=== PATIENT | female | born 1940 | race Caucasian/White ===

== ENCOUNTER 2016-12-04 13:34 | Inpatient (IN) | payer OTHER, MEDICAID ==
[2016-12-04] VITALS (9 sets, daily range): BP systolic 82–111; BP diastolic 35–57; PULSE 60–67; RESP 15–20; TEMP 97.5–99.2; O2SAT 98–100
[~2016-12-04] VITALS: Ht 157.5 cm; Wt 74.4 kg
--- NOTE | 2016-12-04 13:34 | NUR ---
Patient to ER bed 6 to gown for evaluation. Side rails up. Report given to TIAGO JUNE.
--- NOTE | 2016-12-04 13:35 | NUR ---
Dr. Garcia at bedside examining pt.
--- NOTE | 2016-12-04 13:36 | NUR ---
Pt lethargic, nonverbal, unable to track. Per EMT report, pt had fever and ALOC from [facility]escent home. Pupils PERRLA. Lung sounds diminished bilaterally. Peripheral pulses weak on all extremities. Pt is hypotensive with SBP 89 and rectal temp 100.9. Noted rashes on BLE, buttocks, and lower back. Redness on sacrum. Skin intact. No other complaints or injuries per pt or noted.
[2016-12-04] MEDS ORDERED: NACL 0.9% 1,000 ML IV SCH (13:41)
[2016-12-04] MEDS ORDERED: cefTRIAXone 1 GM IVPB PREMIX 50 ML IV ONE (13:45)
--- NOTE | 2016-12-04 14:00 | NUR ---
IV #22 gauge placed to LFA and IV #20 gauge on RFA with blood draw for lab. Use of asceptic technique. Opsite placed over site. Blood return noted. Flushed with 10 cc of normal saline. No evidence of infiltration noted. Patient tolerated well.
--- NOTE | 2016-12-04 14:01 | NUR ---
Administered 2500 ml NS bolus and 1 gm Rocephin IV. Tolerating well. No adverse reactions noted. No infiltration or erythema noted at IV sites.
--- NOTE | 2016-12-04 14:15 | NUR ---
Tracy inserted with aeseptic technique. Tolerated well. Noted yellow, cloudy urine with foul odor.
[2016-12-04] MEDS ORDERED: NACL 0.9% 1,500 ML IV ONE (14:30)
[2016-12-04 14:40] LABS: ANION GAP 7 (5-15); CALCIUM 11.4 mg/dL (8.4-11.0); CREATININE 1.93 mg/dL (0.55-1.30); GLUCOSE 200 mg/dL (70-99); POTASSIUM 4.9 mmol/L (3.5-5.1); SODIUM SERUM 151 mmol/L (136-145); UREA NITROGEN, BLOOD 65 mg/dL (8-21)
[2016-12-04 14:41] LABS: HEMATOCRIT 38.3 % (36-48); HEMOGLOBIN 12.3 g/dL (12.0-16.0); MEAN CORPUSCULAR HEMOGLOBIN 31 pg (27-31); MEAN CORPUSCULAR HGB CONC 32 % (32-36); MEAN CORPUSCULAR VOLUME 95 fL (79.0-98.0); PLATELET COUNT (AUTO) 224 K/uL (130-430); RED BLOOD CELL COUNT(AUTO) 4.01 MIL/uL (4.2-6.2); RED CELL DISTRIBUTION WIDTH 15.4 % (9.0-15.0); WHITE BLOOD COUNT (AUTO) 18.5 K/uL (4.8-10.8)
[2016-12-04 14:42] LABS: CHLORIDE 121 mmol/L (98-107)
[2016-12-04 14:45] LABS: ALANINE AMINOTRANSFERASE 32 U/L (12-78); ALBUMIN 3.4 g/dL (3.4-4.8); ASPARTATE AMINOTRANSFERASE 28 U/L (10-37); TOTAL BILIRUBIN 0.6 mg/dL (0.0-1.0); TOTAL PROTEIN, SERUM 8.1 g/dL (6.4-8.3)
[2016-12-04 14:46] LABS: PROTHROMBIN TIME 11.2 SECS (9.5-12.5)
[2016-12-04] MEDS ORDERED: HAL1 PO (14:55)
[2016-12-04] MEDS ORDERED: LACT10SO66 PO (14:55)
[2016-12-04] MEDS ORDERED: ASPI-1063 PO (14:55)
[2016-12-04] MEDS ORDERED: LOSA100T11 PO (14:55)
[2016-12-04] MEDS ORDERED: MET10 PO (14:55)
[2016-12-04] MEDS ORDERED: LEVO137T2 PO (14:55)
[2016-12-04] MEDS ORDERED: POLY17PO4 PO (14:55)
[2016-12-04] MEDS ORDERED: HYDR2TAB34 PO (14:55)
[2016-12-04] MEDS ORDERED: MULT-300 PO (14:55)
[2016-12-04] MEDS ORDERED: CYM30 PO (14:55)
[2016-12-04] MEDS ORDERED: ACET-2165 PO ×2 (14:55)
[2016-12-04] MEDS ORDERED: MEGE400O PO (14:55)
[2016-12-04] MEDS ORDERED: DONE10TA44 PO (14:55)
[2016-12-04] MEDS ORDERED: CARV6.2554 PO (14:55)
[2016-12-04] MEDS ORDERED: ONDA4TAB5 PO (14:55)
[2016-12-04] MEDS ORDERED: CYAN100067 PO (14:55)
[2016-12-04] MEDS ORDERED: ASCO500T20 PO (14:55)
[2016-12-04] MEDS ORDERED: ATOR10TA68 PO (14:55)
--- NOTE | 2016-12-04 14:55 | NUR ---
Medication reconciliation completed with information provided by FACILITY. Any prior medication reconciliation on file was reviewed and corrected.
[2016-12-04 15:01] LABS: ATYPICAL LYMPHOCYTES % 4 % (0-0); BAND % (MANUAL) 18 % (0-6); BASOPHILS % (MANUAL) 0 % (0-2); EOSINOPHILS % (MANUAL) 4 % (0-7); LYMPHOCYTES % (MANUAL) 9 % (20-46); MONOCYTES % (MANUAL) 4 % (0-11)
--- NOTE | 2016-12-04 15:45 | NUR ---
Pt remains lethargic, responsive to pain. SBP 84. NS bolus still infusing. Will continue to monitor.
[2016-12-04 15:46] LABS: BILIRUBIN,URINE NEGATIVE (NEGATIVE); BLOOD, URINE 2+ (NEGATIVE); CLARITY/URINE CLOUDY (CLEAR); COLOR,URINE YELLOW (YELLOW); GLUCOSE,URINE NEGATIVE (NEGATIVE); KETONES,URINE NEGATIVE (NEGATIVE); LEUKOCYTE ESTERASE ,URINE 2+ (NEGATIVE); NITRITE, URINE POSITIVE (NEGATIVE); PH,URINE 5.5 (5.0-8.0); PROTEIN URINE TRACE (NEGATIVE); UROBILINOGEN,URINE 0.2 (0.2-1.0)
--- NOTE | 2016-12-04 16:00 | NUR ---
Dr. Garcia at bedside examining pt. Dr. Garcia also aware of rashes on trunk and extremities. No new orders at this time.
[2016-12-04 16:16] LABS: BACTERIA,URINE MANY /HPF (None Seen); MUCUS,URINE 1+ /LPF (None Seen); WBC,URINE >100 /HPF (0-3)
--- NOTE | 2016-12-04 16:20 | NUR ---
Received orders for transfer from Dr. Nobles. Pt is to be admitted to ICU for septic shock. Notified ICU charge nurse, waiting for available bed.
[2016-12-04] MEDS ORDERED: ACETAMINOPHEN 500 MG TABLET PO PRN (16:45)
[2016-12-04] MEDS ORDERED: LEVOTHYROXINE SODIUM 0.137 MG TABLET PO ONE (17:00)
[2016-12-04] MEDS ORDERED: ATORVASTATIN 10 MG TABLET PO ONE (17:00)
[2016-12-04] MEDS ORDERED: ASPIRIN 81 MG TABLET(ECOTRIN) PO ONE (17:00)
--- NOTE | 2016-12-04 17:00 | NUR ---
Transferred pt to ICU 5 via gurney accompanied by 2 RNs with continuous monitoring and O2. Tolerated well.
--- NOTE | 2016-12-04 17:15 | NUR ---
Continuum of care in ICU. Pt awake, oriented x1. Pt continue with NS 100 ml/hr, IV sites intact, patent, no signs of infiltration or erythema noted. Tracy catheter in place with yellow cloudy urine. No acute distress noted. Denies pain. Oriented pt to room and call light. Will continue to monitor.
--- NOTE | 2016-12-04 17:32 | NUR ---
Spoke with Dr. Mackey. made aware Pt is in ICU. No new orders given. Dr. Mackey stated to follow up with Dr. Serrano on the new consult tomorrow morning 12/05/2016
--- NOTE | 2016-12-04 17:38 | NUR ---
Dr. Francine borja. Dr. Suarez is electronics lead for Dr. Escamilla. Spoke with Moreno from exchange. Currently awaiting returned phone call.
[2016-12-04] MEDS ORDERED: NOREPINEPHRINE BITARTRATE 4 MG in D5W 246 ML IV PRN (17:45)
--- NOTE | 2016-12-04 17:45 | NUR ---
Dr. Eaton return call, made aware of pt's condition. New orders made, carried out. Will continue to monitor.
[2016-12-04] MEDS: NACL 0.9% 1,000 ML IV SCH (17:53)
[2016-12-04] MEDS: CEFEPIME 1 GM in D5W 50 ML IV SCH ×2 (17:53→20:55)
[2016-12-04] MEDS ORDERED: COMMUNICATION ORDER XX ONE (19:00)
--- NOTE | 2016-12-04 19:20 | NUR ---
Endorsed plan of care to My RN.
--- NOTE | 2016-12-04 19:45 | NUR ---
PM ASSESSMENT PT RESTING IN BED, A&O TO PERSON ONLY. PT ON O2 NC 2L. O2 SAT 100%. SINUS RHYTHM ON CONCAVER. BREATHING EVEN AND UNLABORED. PERIPHERAL IV 20G SL TO RIGHT FOREARM. PERIPHERAL IV 22G NOTED TO LEFT FOREARM. BOTH SITES DRESSING CLEAN DRY INTACT. NO SIGNS OF INFECTION OR INFILTRATION. NS RUNNING @ 100 ML/HR. BRADLEY CATHETER IN PLACE DRAINING YELLOW URINE. RASH NOTED TO HER BODY. PT'S RIGHT EAR HAS A SMALL SKIN TEAR. BOTH FEET ELEVATED AND WITH HEELIFT IN PLACE. CALL LIGHT WITHIN REACH. BED @ LOWEST POSITION. CONTINUE TO MONITOR THE PT
--- NOTE | 2016-12-04 23:10 | NUR ---
ELEVATED TROPONIN LEVEL TROPONIN 0.1113. NOTIFIED DR KING. DR KING COVERS FOR DR SHAW
[2016-12-04] MEDS ORDERED: NOREPINEPHRINE 4 MG/4 ML VIAL IV ONE (23:39)
[2016-12-05] VITALS (20 sets, daily range): BP systolic 95–165; BP diastolic 46–82; PULSE 60–66; RESP 12–26; TEMP 97–98.5; O2SAT 96–100
[2016-12-05] MEDS: NACL 0.9% 1,000 ML IV SCH ×2 (05:07→19:39)
[2016-12-05] MEDS: LEVOTHYROXINE SODIUM 0.137 MG TABLET PO SCH (06:04)
--- NOTE | 2016-12-05 07:34 | NUR ---
GAVE REPORT TO ONCOMING NURSE
--- NOTE | 2016-12-05 07:35 | NUR ---
RECEIVED PATIENT ON BED AWAKE.BREATHING EVEN AND UNLABORED.NO ACUTE DISTRESS.IVF INFUSING WELL;NO SIGNS AND SYMPTOMS OF INFILTRATION.SAFETY AND FALL PRECAUTIONS IN PLACE.CALL LIGHT WITHIN REACH
[2016-12-05 09:20] LABS: BASOPHILS % (AUTO) 0.3 % (0.0-2.0); EOSINOPHILS # (AUTO) 0.7 K/uL (0.0-0.4); EOSINOPHILS % (AUTO) 6.7 % (0.0-4.0); HEMATOCRIT 29.5 % (36-48); HEMOGLOBIN 9.8 g/dL (12.0-16.0); LYMPHOCYTES # (AUTO) 1.2 K/uL (1.0-5.5); MEAN CORPUSCULAR HEMOGLOBIN 32 pg (27-31); MEAN CORPUSCULAR HGB CONC 33 % (32-36); MEAN CORPUSCULAR VOLUME 95 fL (79.0-98.0); MONOCYTES # (AUTO) 0.3 K/uL (0.0-1.0); NEUTROPHILS # (AUTO) 8.5 K/uL (1.8-7.7); PLATELET COUNT (AUTO) 133 K/uL (130-430); RED BLOOD CELL COUNT(AUTO) 3.09 MIL/uL (4.2-6.2); RED CELL DISTRIBUTION WIDTH 15.1 % (9.0-15.0)
[2016-12-05 09:21] LABS: WHITE BLOOD COUNT (AUTO) 10.7 K/uL (4.8-10.8)
[2016-12-05] MEDS: ATORVASTATIN 10 MG TABLET PO SCH (09:24)
[2016-12-05] MEDS: ASPIRIN 81 MG TABLET(ECOTRIN) PO SCH (09:24)
[2016-12-05] MEDS: CEFEPIME 1 GM in D5W 50 ML IV SCH ×2 (09:25→20:59)
[2016-12-05 09:29] LABS: ANION GAP 8 (5-15); CALCIUM 9.5 mg/dL (8.4-11.0); CREATININE 1.08 mg/dL (0.55-1.30); GLUCOSE 84 mg/dL (70-99); POTASSIUM 3.6 mmol/L (3.5-5.1); SODIUM SERUM 147 mmol/L (136-145); UREA NITROGEN, BLOOD 44 mg/dL (8-21)
--- NOTE | 2016-12-05 09:30 | NUR ---
Nutrition Update Tyree Scale 14 noted. Pt admitted for septic shock. Diet: 2 gm Na BMI: 27.4 kg/m2 RD to follow per nutrition care standards.
--- NOTE | 2016-12-05 09:45 | NUR ---
SERVED BREAKFAST ORDERED;REFUSED TO EAT.WILL OFFER AGAIN LATER
--- NOTE | 2016-12-05 10:03 | NUR ---
PATIENT HAD BOWEL MOVEMENT;MEDIUM ,SOFT,GREENISH Addendum: 12/05/16 at 1302 by Yovana Petty RN PERICARE PROVIDED
[2016-12-05 10:15] LABS: CHLORIDE 120 mmol/L (98-107)
--- NOTE | 2016-12-05 10:30 | NUR ---
OFFERED BREKFAST TRAY AGAIN;STILL REFUSED THE FOOD;ABLE TO CONSUME THE JUICE
[2016-12-05] MEDS ORDERED: CLOTRIMAZOLE 1% TOPICAL CREAM 15 GM TP SCH (11:00)
--- NOTE | 2016-12-05 11:51 | NUR ---
DR. PENA CAME AND EXAMINED THE PATIENT;NO NEW ORDER
[2016-12-05] MEDS ORDERED: FLUCONAZOLE 100 mg/ NS 50 ML IV ONE (12:00)
--- NOTE | 2016-12-05 12:30 | NUR ---
PATIENT ON BED AWAKE.BREATHING EVEN AND UNLABORED.COMPLAINING OF MILD RECTAL PAIN BUT REFUSED TO TAKE TYLENOL.IVF INFUSING WELL;NO SIGNS AND SYMPTOMS OF INFILTRATION.SAFETY AND FALL PRECAUTIONS IN PLACE.CALL LIGHT WITHIN REACH.ENDORSED TO FREDDY JUNE
--- NOTE | 2016-12-05 15:20 | NUR ---
Wound Evaluation: Wound Consult ordered for Low Tyree Score. Patient evaluated for a low Tyree score of 15, now a 14. Patient was awake, alert, confused, and received in an ICU [facility] bed with a Isabella XPRT mattress. Patient needs to be turned in bed. Skin is poor. Recommend reposition patient side to side only every 2 hours with pillow support. Elevate, off-load and float bilateral heels with pillows. Offload pressure areas with pillows for pressure re-distribution. Perform skin care and monitor skin integrity Q shift. Use moisture barrier cream on moisture susceptible areas QID and PRN for soiling. Maintain patient on a low air-loss mattress. Will continue to follow as a Tyree. Skin assessment: 1. Sacral coccygeal/buttocks areas: Redness, and non-intact skin from IAD, present on admission. Dry flaky skin present. Open area on right buttock is 100% pink tissue, and is covered completely by moisture barrier cream. Recommend: Cleanse involved areas with mild soap and water. Pat dry. Cover involved areas with moisture barrier cream. Cover with sacral foam dressing. Perform site care daily, and as needed for dressing soiling or dislodgment. 2. Right Ear, [place]: Reddened area measuring 0.5 cm X 1.0 cm. Black eschar present. No odor, no drainage. Recommend: Do not allow ear to touch pillows or other surfaces. If necessary, elevate and with a folded towel to allow ears to float off of pillows. 3. Left heel: 4. Right heel: Dark and reddish discolorations, present on admission. Recommend: Elevate, offload and float bilateral heels with pillows lengthwise at all times. Continue to monitor heels every shift. 5. Bilateral Lower Extremities, inguinal areas, and medial thighs: Rash like area, present on admission. No odor, no drainage. Recommend: Cleanse perineal, inguinal and medial thigh areas with mild soap and water. Pat dry. Apply antifungal cream 4 times a day and as needed for soiling. Also recommend scabies scraping.
--- NOTE | 2016-12-05 15:20 | NUR ---
WOUND CARE NURSE ROUNDS. PATIENT REPOSITIONING. VITAL SIGNS. INTAKE FOR LUNCH APPROXIMATELY 25%.
[2016-12-05] MEDS: metroNIDAZOLE 250 mg/NS 50 ML IV SCH ×2 (18:05→22:06)
--- NOTE | 2016-12-05 19:36 | NUR ---
HANDOFF FOR NOC NURSE INCLUDING PATIENT IV SITE. NEEDS HELP TO FEED, APPEARS WITHDRAWN OTHERWISE IF NOT ENGAGED TO EAT, REFUSES EXCEPT BITES AND SIPS OF FOOD. CALL TO MD RE: RULE OUT SCABIES. SITES OF IRRITATION CURRENTLY HAVE ORDERS FOR CREAM ON BEDSIDE TABLE. PATIENT HAS HEEL PROTECTOR BOOTS AT BEDSIDE. NEED FOR NEW IV BAG AND TO CHECK FLUID RATE UPON ADMINISTRATION. SITE OF RIGHT EAR TO REMAIN FREE FROM CONTACT DURING TURNING. BM X2 THIS SHIFT. BRADLEY CATH. OUTPUT 500ML.
--- NOTE | 2016-12-05 20:00 | NUR ---
ASSESSMENT Report received from morning RN. Pt is awake and alert. feeling anxious and depressed. Vital signs within normal limits. Chest rise and fall noted. Wound noted on right ear and denuded skin on sacrum area. In comfortable position with heel support.
[2016-12-05] MEDS: CLOTRIMAZOLE 1% TOPICAL CREAM 15 GM TP SCH (20:57)
[2016-12-05] MEDS: ANTIFUNGAL CLEAR OINTMENT TP SCH (21:00)
--- NOTE | 2016-12-05 22:00 | NUR ---
Position Applied anti fungal cream on sacrum area. Turned to flat position without right ear touching the pillow. Pt in comfortable position.
[2016-12-06] VITALS (11 sets, daily range): BP systolic 97–142; BP diastolic 53–75; PULSE 60–73; RESP 10–24; TEMP 96.8–98; O2SAT 97–100; Ht 157.5 cm; Wt 74.4 kg
--- NOTE | 2016-12-06 02:00 | NUR ---
POSITION Turned Pt every 2 hours.
[2016-12-06] MEDS ORDERED: NOREPINEPHRINE 4 MG/4 ML VIAL IV ONE (02:26)
[2016-12-06] MEDS: NACL 0.9% 1,000 ML IV SCH ×2 (03:02→10:23)
--- NOTE | 2016-12-06 04:30 | NUR ---
HYGIENE Cleaned Pt and applied z guard ointment on sacrum area. Changed linen and oral care. Denies pain and in comfortable position.
[2016-12-06] MEDS: metroNIDAZOLE 250 mg/NS 50 ML IV SCH ×2 (05:26→15:24)
--- NOTE | 2016-12-06 06:00 | NUR ---
BOWEL MOVEMENT Pt had light brown solid stool. Cleaned the Pt.
[2016-12-06] MEDS: LEVOTHYROXINE SODIUM 0.137 MG TABLET PO SCH (06:27)
[2016-12-06] MEDS: ATORVASTATIN 10 MG TABLET PO SCH (10:12)
[2016-12-06] MEDS: ASPIRIN 81 MG TABLET(ECOTRIN) PO SCH (10:12)
[2016-12-06] MEDS: CEFEPIME 1 GM in D5W 50 ML IV SCH ×2 (10:13→22:07)
[2016-12-06] MEDS: FLUCONAZOLE 100 mg/ NS 50 ML IV SCH (10:13)
[2016-12-06] MEDS: CLOTRIMAZOLE 1% TOPICAL CREAM 15 GM TP SCH ×2 (10:14→22:18)
[2016-12-06] MEDS: ANTIFUNGAL CLEAR OINTMENT TP SCH ×2 (10:14→22:19)
--- NOTE | 2016-12-06 12:20 | NUR ---
assumed care rec patient awake alert with periods of confusion, hob elevated. resp easy and unlabored. no sob noted. iv infiltrated on the r ac and restarted on the l ac #20. patent and infusing well on the l ac. had a large amount of bowel movement and was cleaned. perineal care rendered as well. turned repositioned for comfort. bed in low position and side rails up and locked.
--- NOTE | 2016-12-06 15:00 | NUR ---
rounds sleeps at intervals but get confused at times and reorient with her surroundings. no sob noted and bed in low position.
--- NOTE | 2016-12-06 16:40 | NUR ---
rounds report given to cinda peterson rn re patient and was transferred. no sob noted and stable.
--- NOTE | 2016-12-06 17:00 | NUR ---
TRANSFER/ASSUMED CARE RECEIVED REPORT FROM SHAYLEE MANZANARES. PATIENT IS RESTING COMFORTABLY IN BED. NO S/S OF DISTRESS OR SOB. PATIENT IS AWAKE BUT CONFUSED. IV IS PATENT AND INFUSING. BED ALARM TURNED ON. HEEL PROTECTORS ON, BRADLEY DRAINING TO GRAVITY. CALL LIGHT IN REACH, BED IN LOWEST POSITION, AND WILL CONTINUE TO MONITOR.
--- NOTE | 2016-12-06 18:12 | NUR ---
CLOSING NOTE: PATIENT IS RESTING COMFORTABLY IN BED. NO S/S OF DISTRESS OR SOB. PATIENT IS AWAKE BUT CONFUSED. IV IS PATENT AND INFUSING. BRADLEY DRAINING TO GRAVITY. CALL LIGHT IN REACH, BED IN LOWEST POSITION, AND WILL GIVE REPORT TO NIGHT NURSE.
--- NOTE | 2016-12-06 20:15 | NUR ---
OPENING NOTES PATIENT IS A/OX1.M PATIENT IS CONFUSED. NO SIGNS OF DISTRESS. BREATHING IS NON LABORED. VITAL SIGNS ARE STABLE. BRADLEY IS PATENT. PATIENT PULLED OUT IV. WILL INSERT NEW ONE. CALL LIGHT IS WITHIN REACH. SAFETY MEASURES ARE IN PLACE. WILL CONTINUE TO MONITOR.
--- NOTE | 2016-12-06 21:55 | NUR ---
IV INSERTION IV TO RIGHT FORE ARM WAS INSERTED. UX DESIGN LEAD ALYX WAS SUCCESSFUL. FIVE ATTEMPTS WERE UNSUCCESSFUL. PATIENT TOLERATED IT WELL. IV MEDICATION WILL BE LATE DUE TO IV SITE UNAVAILABLE.
--- NOTE | 2016-12-06 22:47 | NUR ---
ROUNDS PATIENT IS IN BED SLEEPING. NO SIGNS OF DISTRESS. BREATHING IS NON LABORED. SAFETY MEASURES ARE IN PLACE. WILL CONTINUE TO MONITOR.
[2016-12-06] MEDS: VANCOMYCIN HCL 1,250 MG in NS 250 ML IV SCH (22:56)
[2016-12-07 00:11] VITALS: BP 104/63; PULSE 66; RESP 16; TEMP 97.3; O2SAT 97
--- NOTE | 2016-12-07 00:35 | NUR ---
ROUNDS PATIENT IS IN BED SLEEPING. NO SIGNS OF DISTRESS. BREATHING IS NON LABORED. SAFETY MEASURES ARE IN PLACE. WILL CONTINUE TO MONITOR.
--- NOTE | 2016-12-07 02:58 | NUR ---
PATIENT TRANSFERRED TO ROOM 104B PATIENT ATTEMPTED TO GET OUT BED. PATIENT WAS MOVED CLOSER TO THE NURSING STATION. PATIENT IS NOW IN ROOM 104B. PATIENT IS RESTING COMFORTABLY. CALL LIGHT IS WITHIN REACH. BED ALARM IS ON. SAFETY MEASURES ARE IN PLACE. WILL CONTINUE TO MONITOR.
[2016-12-07 04:23] VITALS: BP 100/49; PULSE 60; RESP 16; TEMP 96.8; O2SAT 96
--- NOTE | 2016-12-07 04:50 | NUR ---
ROUNDS PATIENT IS IN BED SLEEPING. NO SIGNS OF DISTRESS. BREATHING IS NON LABORED. CALL LIGHT IS WITHIN REACH. BED ALARM IS ON. WILL CONTINUE TO MONITOR.
[2016-12-07] MEDS: LEVOTHYROXINE SODIUM 0.137 MG TABLET PO SCH (06:06)
--- NOTE | 2016-12-07 06:56 | NUR ---
CLOSING NOTES PATIENT IS IN BED RESTING COMFORTABLY. IV AND BRADLEY ARE PATENT. NO SIGNS OF DISTRESS. BREATHING IS NON LABORED. HEEL BOOTS ARE PRESENT. BED ALARM IS ON. SAFETY MEASURES ARE IN PLACE. WILL ENDORSE ALL CARE TO THE MORNING NURSE.
--- NOTE | 2016-12-07 08:00 | NUR ---
initial notes rec patient awake but with periods of confusion. hob elevated with ivf infusing well on the r ac. no infiltration noted. resp easy and unlabored. noted with gen body rash. bed in low position and side rails up and locked. made patient comfortable. call light within reached.pt is close to the nurses station.
[2016-12-07 08:22] VITALS: BP 132/87; PULSE 71; RESP 18; TEMP 97.5; O2SAT 97
[2016-12-07] MEDS: CEFEPIME 1 GM in D5W 50 ML IV SCH ×2 (09:05→20:52)
[2016-12-07] MEDS: ATORVASTATIN 10 MG TABLET PO SCH (09:06)
[2016-12-07] MEDS: ASPIRIN 81 MG TABLET(ECOTRIN) PO SCH (09:06)
[2016-12-07] MEDS: ANTIFUNGAL CLEAR OINTMENT TP SCH ×2 (09:08→20:56)
[2016-12-07] MEDS: CLOTRIMAZOLE 1% TOPICAL CREAM 15 GM TP SCH ×2 (09:08→20:53)
--- NOTE | 2016-12-07 10:00 | NUR ---
rounds due abx given at this time. no sob noted.
[2016-12-07] MEDS: FLUCONAZOLE 100 mg/ NS 50 ML IV SCH (10:13)
[2016-12-07] MEDS: NACL 0.9% 1,000 ML IV SCH ×2 (10:53→21:56)
[2016-12-07 12:11] VITALS: BP 125/67; PULSE 66; RESP 19; TEMP 97.4; O2SAT 97
--- NOTE | 2016-12-07 12:51 | NUR ---
rounds pt asleep at intervals. no sob noted. made comfortable.
--- NOTE | 2016-12-07 15:00 | NUR ---
rounds sleeping when rounds made. no sob noted.
[2016-12-07 15:25] VITALS: BP 107/71; PULSE 69; RESP 19; TEMP 97.2; O2SAT 98
--- NOTE | 2016-12-07 16:30 | NUR ---
Wound Re-Evaluation: Wound Consult ordered for Low Tyree Score. Patient evaluated for a low Tyree score of 15, now a 14. Patient was awake, alert, confused, and received in an ICU [facility] bed with a Proctor XPRT mattress. Patient needs to be turned in bed. Skin is poor. Recommend reposition patient side to side only every 2 hours with pillow support. Elevate, off-load and float bilateral heels with pillows. Offload pressure areas with pillows for pressure re-distribution. Perform skin care and monitor skin integrity Q shift. Use moisture barrier cream on moisture susceptible areas QID and PRN for soiling. Maintain patient on a low air-loss mattress. Will continue to follow as a Tyree. Skin assessment: 1. Sacral coccygeal/buttocks areas: Redness, and non-intact skin from IAD, present on admission. Dry flaky skin present. Open area on right buttock is 100% pink tissue, and is covered completely by moisture barrier cream. Recommend continue: Cleanse involved areas with mild soap and water. Pat dry. Cover involved areas with moisture barrier cream. Cover with sacral foam dressing. Perform site care daily, and as needed for dressing soiling or dislodgment. 2. Right Ear, [place]: Reddened area. Black eschar present. No odor, no drainage. Recommend continue: Do not allow ear to touch pillows or other surfaces. If necessary, elevate and with a folded towel to allow ears to float off of pillows. 3. Left heel: 4. Right heel: Dark and reddish discolorations, present on admission. Recommend continue: Elevate, offload and float bilateral heels with pillows lengthwise at all times. Continue to monitor heels every shift. 5. Bilateral Lower Extremities, inguinal areas, and medial thighs: Rash like area, present on admission. No odor, no drainage. Recommend continue: Cleanse perineal, inguinal and medial thigh areas with mild soap and water. Pat dry. Apply antifungal cream 4 times a day and as needed for soiling. Also recommend scabies scraping.
--- NOTE | 2016-12-07 16:59 | NUR ---
rounds seen by dr johnson and with orders
[2016-12-07] MEDS: VANCOMYCIN HCL 1,250 MG in NS 250 ML IV SCH (18:35)
--- NOTE | 2016-12-07 18:40 | NUR ---
closing notes pt abx was given. iv site on the r ac intact. no infiltration noted. sleeping at this time. endorsed to night nurse to observe for voiding . kelsey was dc/d at 1640. resting comfortably. no sob noted. stable, needs attended.
[2016-12-07 20:00] VITALS: BP 122/58; PULSE 63; RESP 18; TEMP 97.3; O2SAT 98
--- NOTE | 2016-12-07 20:00 | NUR ---
OPENING ASSESSMENT PATIENT ORIENTED TO NAME ONLY. CONFUSED TO LOCATION AND DATE. DENIES PAIN. LUNGS CLEAR. O2 SAT. ON R/A IS 98%. TELE. SHOWS SR.0.9NS INFUSING @ 70 ML/HR VIA.RAC 20 SITE IS CLEAR. TOLERATING PO'S WELL. NO S/S OF ASPIRATION NOTED. CALL LIGHT WITHIN EASY ACCESS. INFORMED PATIENT TO STAY IN BED AND TO CALL NURSE FOR ALL NEEDS. BED IN LOW POSITION. SIDE RAILS UP X3. BED ALARM ON.
--- NOTE | 2016-12-07 21:20 | NUR ---
NOTES PATIENT INCONTINENT OF URINE. LINEN CHANGED. PARTIAL BATH.
--- NOTE | 2016-12-07 22:30 | NUR ---
NOTES PATIENT RESTING QUIETLY. NO DISTRESS NOTED @ THIS TIME.
[2016-12-08] VITALS (7 sets, daily range): BP systolic 106–131; BP diastolic 70–85; PULSE 60–72; RESP 18–20; TEMP 97–98.6; O2SAT 96–98
--- NOTE | 2016-12-08 | NUR ---
NOTES PATIENT INCONTINENT OF URINE. PERICARE AND LINEN CHANGED.
--- NOTE | 2016-12-08 02:33 | NUR ---
ROUNDS PATIENT ASLEEP. NO DISTRESS NOTED. CONTINUE ON FALL PRECAUTIONS. BED ALARM ON. SIDE RAILS UP X3. CALL LIGHT WITHIN EASY ACCESS.
[2016-12-08] MEDS: NACL 0.9% 1,000 ML IV SCH (03:47)
--- NOTE | 2016-12-08 04:30 | NUR ---
PATIENT RESTING: Patient resting quietly. No acute distress noted. Vital signs within normal range.
[2016-12-08] MEDS: LEVOTHYROXINE SODIUM 0.137 MG TABLET PO SCH (06:22)
[2016-12-08] MEDS: ONDANSETRON HCL 4 MG/2 ML VIAL IVP PRN (06:35)
--- NOTE | 2016-12-08 06:35 | NUR ---
CLOSING NOTES PATIENT C/O NAUSEA. ZOFRAN 4MG IVP GIVEN. NEW IV PLACED IN RT.HAD 24G WITH 0.9NS INFUSING @ 70ML/HR. PATIENT INCONTINENT OF URINE AND STOOL. INFORMED PATIENT TO CALL NURSE FOR ALL NEEDS.NOT TO GET OUT OF BED CALL LIGHT WITHIN EASY ACCESS. SIDE RAILS UP X3. BED ALARM ON.
[2016-12-08 07:26] LABS: ANION GAP 7 (5-15); CALCIUM 10.2 mg/dL (8.4-11.0); CHLORIDE 114 mmol/L (98-107); CREATININE 1.17 mg/dL (0.55-1.30); GLUCOSE 95 mg/dL (70-99); POTASSIUM 3.1 mmol/L (3.5-5.1); SODIUM SERUM 140 mmol/L (136-145); UREA NITROGEN, BLOOD 20 mg/dL (8-21)
[2016-12-08 07:30] LABS: BASOPHILS % (AUTO) 0.3 % (0.0-2.0); EOSINOPHILS # (AUTO) 0.7 K/uL (0.0-0.4); EOSINOPHILS % (AUTO) 6.7 % (0.0-4.0); HEMATOCRIT 34.2 % (36-48); HEMOGLOBIN 11.1 g/dL (12.0-16.0); LYMPHOCYTES # (AUTO) 1.1 K/uL (1.0-5.5); MEAN CORPUSCULAR HEMOGLOBIN 31 pg (27-31); MEAN CORPUSCULAR HGB CONC 33 % (32-36); MEAN CORPUSCULAR VOLUME 94 fL (79.0-98.0); MONOCYTES # (AUTO) 0.3 K/uL (0.0-1.0); MONOCYTES % (AUTO) 2.6 % (1.7-9.3); NEUTROPHILS # (AUTO) 8.9 K/uL (1.8-7.7); NEUTROPHILS % (AUTO) 80.4 % (40.0-70.0); PLATELET COUNT (AUTO) 167 K/uL (130-430); RED BLOOD CELL COUNT(AUTO) 3.63 MIL/uL (4.2-6.2); RED CELL DISTRIBUTION WIDTH 14.5 % (9.0-15.0)
--- NOTE | 2016-12-08 08:17 | NUR ---
OPENING NOTE: PT AAOX1. PT AWAKE AND ALERT. LAYING WITH HOB ELEVATED. NO ACUTE SIGNS OF DISTRESS, NO SOB. SKIN WARM DRY AND COLOR NORMAL FOR ETHNICITY. NOTED GENERALIZED RASH THROUGHOUT BODY. IV SITE INTACT WITH NO SIGNS OF REDNESS/SWELLING. IVF INFUSING WELL. WILL CONTINUE TO MONITOR.
[2016-12-08] MEDS: CEFEPIME 1 GM in D5W 50 ML IV SCH ×2 (08:48→19:58)
[2016-12-08] MEDS: CLOTRIMAZOLE 1% TOPICAL CREAM 15 GM TP SCH ×2 (08:49→19:58)
[2016-12-08] MEDS: ASPIRIN 81 MG TABLET(ECOTRIN) PO SCH (08:49)
[2016-12-08] MEDS: ATORVASTATIN 10 MG TABLET PO SCH (08:49)
[2016-12-08] MEDS: ANTIFUNGAL CLEAR OINTMENT TP SCH ×2 (08:51→19:57)
[2016-12-08] MEDS: FLUCONAZOLE 100 mg/ NS 50 ML IV SCH (09:44)
--- NOTE | 2016-12-08 10:03 | NUR ---
ROUNDING: AM MEDS CLEAN ENERGY POLICY ANALYST PER MD ORDER. PT TOLERATED WELL. NO SIGNS OF ACUTE DISTRESS, NO SOB. BED AT LOWEST POSITION, CALL LIGHT WITHIN REACH, BED ALARM ON, SIDE RAILS X3. WILL CONTINUE TO MONITOR.
--- NOTE | 2016-12-08 12:00 | NUR ---
Called Daughter: Called Daughter Nanci Groves for consent for PICC. Left a message asking her to call me back. Awaiting call back at this time.
[2016-12-08] MEDS: HYDROmorphone 2 MG TAB PO PRN (12:29)
[2016-12-08 13:54] LABS: INR 1.1 (0.8-1.2); PROTHROMBIN TIME 11.6 SECS (9.5-12.5)
--- NOTE | 2016-12-08 14:03 | NUR ---
PICC LINE NURSE CALL BACK/ROUNDING: SPOKE TO PICC NURSE AND HE IS AWARE THAT CONSENT IS SIGNED. PICC NURSE STATED THAT HE SHOULD BE HERE A LITTLE OVER AN HOUR. PT IS RESTING IN BED WITH HOB ELEVATED. SAFETY PRECAUTIONS IMPLEMENTED WITH BED AT LOWEST POSITION, CALL LIGHT ON LAP, BED ALARM ACTIVATED, SIDE RAILS X3. DENIES PAIN AT THIS TIME. ALL NEEDS MET. WILL CONTINUE TO MONITOR.
--- NOTE | 2016-12-08 16:00 | NUR ---
ROUNDING: PT LAYING IN BED WITH HOB ELEVATED. NO ACUTE SIGNS OF DISTRESS, NO SOB. SKIN WARM DRY AND COLOR NORMAL FOR ETHNICITY. PICC LINE INTACT, CLEAN AND NO SIGNS OF ACTIVE BLEEDING. SAFETY PRECAUTIONS IMPLEMENTED: BED AT LOWEST POSITION, CALL LIGHT WITHIN REACH, BED ALARM ACTIVATED, SIDE RAILS X3. RE-ENFORCED EDUCATION. WILL CONTINUE TO MONITOR.
[2016-12-08] MEDS ORDERED: POTASSIUM CHLORIDE 20 MEQ/PKT PACKET PO ONE (18:00)
[2016-12-08] MEDS: VANCOMYCIN HCL 1,250 MG in NS 250 ML IV SCH (18:12)
--- NOTE | 2016-12-08 18:28 | NUR ---
CLOSING NOTE: ROUTINE MED GIVE PER MD ORDER, PT TOLERATED WELL. PT LAYING IN BED WITH HOB ELEVATED. SKIN WARM DRY AND COLOR NORMAL FOR ETHNICITY. PICC LINE INTACT, CLEAN, PATENT AND NO ACTIVE SIGNS OF BLEEDING. IVF INFUSING WELL. CHILDHOOD TEACHER INTACT. SAFETY PRECAUTIONS IMPLEMENTED WITH BED AT LOWEST POSITION, CALL LIGHT WITHIN REACH, SIDE RAILS X3, BED ALARM ACTIVATED. ASPIRATION PRECAUTIONS IMPLEMENTED WITH HOB ELEVATED. WILL ENDORSE TO NEXT SHIFT.
--- NOTE | 2016-12-08 19:45 | NUR ---
Initial Notes Patient resting in bed, alert, verbally responsive. Patient denies pain. No SOB noted, on room air. IV site patent, flushes well, infusing fluids as ordered. Tele: SR. No s/s of nausea/vomiting at this time. Patient repositioned in bed. Goal of pain management, GI/ stability and safety this shift. Safety precautions. Will continue to monitor.
--- NOTE | 2016-12-08 22:00 | NUR ---
Notes Patient sleeping at this time. No s/s of pain or discomfort noted. No SOB noted. IV site patent, flushes well, infusing fluids as ordered. Will continue to monitor.
[2016-12-09] VITALS (8 sets, daily range): BP systolic 98–142; BP diastolic 57–87; PULSE 55–75; RESP 14–22; TEMP 96.9–99.8; O2SAT 64–100
--- NOTE | 2016-12-09 00:10 | NUR ---
Notes Patient sleeping at this time. No s/s of pain or discomfort noted. Afebrile. IV site patent, flushes well, infusing fluids as ordered. Repositioned patient in bed. Will continue to monitor.
[2016-12-09] MEDS: NACL 0.9% 1,000 ML IV SCH ×2 (04:06→17:29)
[2016-12-09] MEDS: LEVOTHYROXINE SODIUM 0.137 MG TABLET PO SCH (06:37)
--- NOTE | 2016-12-09 06:46 | NUR ---
Closing Notes Patient denies pain. No SOB noted, on room air. IV site patent, flushes well, infusing fluids as ordered. No s/s of nausea/vomiting at this time. Patient repositioned in bed. Goal of pain management, GI/ stability and safety met. Safety precautions continued. Will continue to monitor.
[2016-12-09 06:58] LABS: ANION GAP 10 (5-15); CALCIUM 9.7 mg/dL (8.4-11.0); CHLORIDE 115 mmol/L (98-107); CREATININE 1.02 mg/dL (0.55-1.30); GLUCOSE 91 mg/dL (70-99); POTASSIUM 4.2 mmol/L (3.5-5.1); SODIUM SERUM 143 mmol/L (136-145); UREA NITROGEN, BLOOD 16 mg/dL (8-21)
[2016-12-09 08:03] LABS: BASOPHILS % (AUTO) 0.3 % (0.0-2.0); EOSINOPHILS # (AUTO) 0.7 K/uL (0.0-0.4); EOSINOPHILS % (AUTO) 6.5 % (0.0-4.0); HEMATOCRIT 33.6 % (36-48); HEMOGLOBIN 10.6 g/dL (12.0-16.0); LYMPHOCYTES # (AUTO) 1.4 K/uL (1.0-5.5); LYMPHOCYTES % (AUTO) 12.9 % (20.5-51.5); MEAN CORPUSCULAR HEMOGLOBIN 30 pg (27-31); MEAN CORPUSCULAR HGB CONC 32 % (32-36); MEAN CORPUSCULAR VOLUME 94 fL (79.0-98.0); MONOCYTES # (AUTO) 0.3 K/uL (0.0-1.0); MONOCYTES % (AUTO) 2.5 % (1.7-9.3); NEUTROPHILS # (AUTO) 8.5 K/uL (1.8-7.7); NEUTROPHILS % (AUTO) 77.8 % (40.0-70.0); PLATELET COUNT (AUTO) 161 K/uL (130-430); RED BLOOD CELL COUNT(AUTO) 3.57 MIL/uL (4.2-6.2); RED CELL DISTRIBUTION WIDTH 14.4 % (9.0-15.0); WHITE BLOOD COUNT (AUTO) 10.9 K/uL (4.8-10.8)
--- NOTE | 2016-12-09 08:31 | NUR ---
OPENING NOTE: PT RESTING IN BED WITH EYES CLOSED. NO SIGNS OF ACUTE DISTRESS, NO SOB. PT ON RA AND SATURATING AT 99%. LUNG SOUNDS CLEAR. SKIN WARM DRY AND COLOR NORMAL FOR ETHNICITY. PICC LINE INTACT AND NO SIGNS OF REDNESS/SWELLING, NO ACTIVE BLEEDING. BOWEL SOUNDS ACTIVE. HOB ELEVATED. FALL PRECAUTIONS IMPLEMENTED WITH BED AT LOWEST POSITION, CALL LIGHT WITHIN REACH, BED ALARM ON, AND SIDE RAILS X3. DENIES PAIN AT THIS TIME. VS WNL. WILL CONTINUE TO MONITOR.
[2016-12-09] MEDS: CEFEPIME 1 GM in D5W 50 ML IV SCH ×2 (08:53→21:17)
[2016-12-09] MEDS: ASPIRIN 81 MG TABLET(ECOTRIN) PO SCH (08:53)
[2016-12-09] MEDS: ATORVASTATIN 10 MG TABLET PO SCH (08:53)
[2016-12-09] MEDS: FLUCONAZOLE 100 mg/ NS 50 ML IV SCH (08:53)
[2016-12-09] MEDS: ANTIFUNGAL CLEAR OINTMENT TP SCH ×2 (08:55→21:18)
[2016-12-09] MEDS: CLOTRIMAZOLE 1% TOPICAL CREAM 15 GM TP SCH ×2 (08:56→21:18)
--- NOTE | 2016-12-09 10:00 | NUR ---
ROUNDING: PT RESTING WITH EYES CLOSED. HOB ELEVATED. IVF INFUSING WELL. IV INTACT. SKIN COLOR NORMAL FOR ETHNICITY. FALL PRECAUTIONS IMPLEMENTED WITH BED AT LOWEST POSITION, CALL LIGHT WITHIN REACH, BED ALARM ON, SIDE RAILS X3. WILL CONTINUE TO MONITOR.
--- NOTE | 2016-12-09 12:00 | NUR ---
ROUNDING: PT RESTING WITH EYES CLOSE. NO ACUTE SIGNS OF DISTRESS, NO SOB. SKIN WARM DRY AND COLOR NORMAL FOR ETHNICITY. IV SITE INTACT AND IVF INFUSING WELL. REPOSITION PATIENT AND ENCOURAGE TO SIT UP AND EAT. ASSISTED PT WITH TURNING ON TELEVISION TO ENCOURAGE PT. DENIES PAIN AT THIS TIME. SAFETY PRECAUTIONS IMPLEMENTED WITH BED AT LOWEST POSITION, CALL LIGHT WITHIN REACH, BED ALARM ON AND SIDE RAILS X3. CONTINUE TO MONITOR.
[2016-12-09] MEDS: HYDROmorphone 2 MG TAB PO PRN (13:32)
[2016-12-09] MEDS: ONDANSETRON HCL 4 MG/2 ML VIAL IVP PRN (13:37)
--- NOTE | 2016-12-09 13:50 | NUR ---
ROUNDING: PT RESTING IN BED WITH EYES CLOSED. NO SIGNS OF RESPIRATORY DISTRESS, NO SOB. PT ON RA. SKIN WARM DRY AND COLOR NORMAL FOR ETHNICITY. IV SITE INTACT AND NO SIGNS OF REDNESS/SWELLING. PAIN MEDS AND ZOFRAN GIVEN PER MD ORDER. REPOSITION PATIENT AND ASSISTED WITH FEEDING. PT TOLERATED FEEDING WELL. ASPIRATION PRECAUTIONS IMPLEMENTED WITH HOB ELEVATED. SAFETY PRECAUTIONS IMPLEMENTED WITH BED AT LOWEST POSITION, CALL LIGHT WITHIN REACH, BED ALARM ON, SIDE RAILS X3. RE-ENFORCED EDUCATION IN REGARDS TO PLAN OF CARE AND CALLING FOR ASSISTS WHEN PRIOR TO GETTING UP. CONTINUE TO MONITOR
--- NOTE | 2016-12-09 15:46 | NUR ---
Wound Re-Evaluation: Wound Consult ordered for Low Tyree Score. Patient evaluated for a low Tyree score of 15, now a 14. Patient was awake, alert, confused, and received in a [place] bed with IsoFlex SAMRA mattress on a low air loss therapy. Patient needs to be turned in bed. Skin is poor. Recommend reposition patient side to side only every 2 hours with pillow support. Elevate, off-load and float bilateral heels with pillows. Offload pressure areas with pillows for pressure re-distribution. Perform skin care and monitor skin integrity Q shift. Use moisture barrier cream on moisture susceptible areas QID and PRN for soiling. Maintain patient on a low air-loss mattress. Scabies wet mount negative. Will continue to follow as a Tyree. Skin assessment: 1. Sacral coccygeal/buttocks areas: Redness, and flaky skin from IAD, present on admission. Dry flaky skin present. Open area on right buttock is 100% pink tissue, and can be covered completely by moisture barrier cream. Recommend: Cleanse involved areas with mild soap and water. Pat dry. Cover involved areas with Lotrimin, then antifungal cream. Cover with sacral foam dressing. Perform site care daily, and as needed for dressing soiling or dislodgment. 2. Right Ear, [place]: Reddened area. Black eschar present. No odor, no drainage. Recommend continue: Do not allow ear to touch pillows or other surfaces. If necessary, elevate and with a folded towel to allow ears to float off of pillows. 3. Left heel: 4. Right heel: Dark and reddish discolorations, present on admission. Recommend continue: Elevate, offload and float bilateral heels with pillows lengthwise at all times. Continue to monitor heels every shift. 5. Bilateral Lower Extremities, inguinal areas, and medial thighs: Rash like area, present on admission. No odor, no drainage. Recommend continue: Cleanse perineal, inguinal and medial thigh areas with mild soap and water. Pat dry. Apply antifungal cream 4 times a day and as needed for soiling.
--- NOTE | 2016-12-09 16:00 | NUR ---
ROUNDING: PT RESTING WITH EYES CLOSED. NO SIGNS OF ACUTE DISTRESS, NO SOB. SKIN WARM DRY AND COLOR NORMAL FOR ETHNICITY. IV SITE INTACT AND NO REDNESS/SWELLING. IVF INFUSING WELL. PT IS RESTING COMFORTABLY, DENIES PAIN AT THIS TIME. ASPIRATION PRECAUTIONS IMPLEMENTED. SAFETY/FALL PRECAUTIONS IMPLEMENTED. BED AT LOWEST POSITION. CONTINUE TO MONITOR.
--- NOTE | 2016-12-09 19:15 | NUR ---
change of shift.pt.presents rash:profuse body distribution.it was conveyed to me that a wet-mount was attended to and the result:negative.iv fluids infusing via picc-line;rt.bicept.call light placed w/in pt's reach.
--- NOTE | 2016-12-09 20:00 | NUR ---
pt.assessed.pt.repositioned.v/s assessed;values w/in normal limits.iv fluids infusing via picc line. call light placed w/in pt's reach/pt,presents slight confused status i have. oriented pt.to location: [facility].
--- NOTE | 2016-12-09 22:00 | NUR ---
pt.assessed.pt.repositioned.pt.presents quiescent affect:calm,pt.re-oriented to location:[facility]. call light placed w/in pt's reach.
--- NOTE | 2016-12-10 | NUR ---
pt.assessed.v/s assessed:values w/in normal limits.pt.repositioned.pt.presents quiescent affect;calm,asleep. iv fluids infusing.call light placed w/in pt's reach.
--- NOTE | 2016-12-10 01:15 | NUR ---
pt.has removed the picc line.i have applied pressure dsg.i am to place telphone call to the exchange of to apprised of the pt's status.pt.states she feels itchy i a=have reviewed the emar no medication is ordered.
--- NOTE | 2016-12-10 01:45 | NUR ---
has returned the call. i apprised of the occurrence:picc line removal. has ordered picc line place in am.:12/02/16.io have conveyed to kemal the pt.states she fells itchy has orderd benadryl:25mg ivp q-6hrs:prn.
[2016-12-10] MEDS: DIPHENHYDRAMINE INJ 50 MG/ML VIAL IVP PRN ×2 (01:59→09:44)
--- NOTE | 2016-12-10 02:00 | NUR ---
pt.assessed.pt.repositioned.i have re-established the iv access:rt.hand;24g. call light placed w/in pt's reach.
--- NOTE | 2016-12-10 03:00 | NUR ---
pt.assessed.pt.presents quiescent affect;calm,asleep.iv fluids infusinf.i have administered benadryl:25mg ivp. nio distress/discomfort manifested.call light w/in pt's reach.
[2016-12-10 03:45] VITALS: BP 112/66; PULSE 62; RESP 18; TEMP 97.6; O2SAT 96
--- NOTE | 2016-12-10 06:30 | NUR ---
pt.assessed.pt.repositioned.pt.cleaned.picc-line consent obtained per grand/dtr:deisy/poncho assisted w/ the paper work and the telephone consent.call light placed w/in reach.
[2016-12-10] MEDS: LEVOTHYROXINE SODIUM 0.137 MG TABLET PO SCH (07:00)
[2016-12-10] MEDS: NACL 0.9% 1,000 ML IV SCH (07:06)
--- NOTE | 2016-12-10 07:39 | NUR ---
opening Note Report received from Lloyd JUNE. Patient is currently resting in bed. call light is within reach. Patient is in stable condition. IV is on the right hand 24g currently running NS@70ml/hr. Will continue to monitor.
--- NOTE | 2016-12-10 07:54 | NUR ---
Opening Note patient is sitting in bed. Seems anxious and has some course tremors. Librium 25mg PO was given. Otherwise his condition is stable. IV LFA 20g currently saline locked. Will continue to monitor. Addendum: 12/10/16 at 1800 by Florinda Ross RN incorrect patient Addendum: 12/10/16 at 1800 by Florinda Ross RN incorrect patient
[2016-12-10 08:00] VITALS: BP 139/68; PULSE 66; RESP 16; TEMP 98.3; O2SAT 97
[2016-12-10 08:03] LABS: PROTHROMBIN TIME 11.3 SECS (9.5-12.5)
[2016-12-10] MEDS: ATORVASTATIN 10 MG TABLET PO SCH (08:51)
[2016-12-10] MEDS: ASPIRIN 81 MG TABLET(ECOTRIN) PO SCH (08:51)
[2016-12-10] MEDS: FLUCONAZOLE 100 mg/ NS 50 ML IV SCH (08:52)
[2016-12-10] MEDS: CEFEPIME 1 GM in D5W 50 ML IV SCH ×2 (08:52→22:03)
[2016-12-10] MEDS: CLOTRIMAZOLE 1% TOPICAL CREAM 15 GM TP SCH ×2 (08:53→22:04)
[2016-12-10] MEDS: ANTIFUNGAL CLEAR OINTMENT TP SCH ×2 (08:53→22:06)
[2016-12-10] MEDS: HYDROmorphone 2 MG TAB PO PRN (09:58)
--- NOTE | 2016-12-10 10:20 | NUR ---
Rounds Patient is confused and trying to pull out IV. Repositioned and cleaned her.
--- NOTE | 2016-12-10 12:00 | NUR ---
PICC line Patient had a PICC line inserted. Tolerated well.
--- NOTE | 2016-12-10 14:00 | NUR ---
Rounds Patient is confused and was trying to pull at her PICC line. Wrapped the PICC line in kerlex dressing.
[2016-12-10 15:27] VITALS: BP 101/55; PULSE 61; RESP 19; TEMP 97; O2SAT 93
[2016-12-10] MEDS ORDERED: PERMETHRIN 60 GM TOPICAL CREAM (ELIMITE) TP ONE (16:00)
--- NOTE | 2016-12-10 16:02 | NUR ---
Spoke with MD Spoke with Dr. Serrano in the nurses station. MD made aware of the patient's rash throughout her body. MD entered orders.
--- NOTE | 2016-12-10 19:10 | NUR ---
Closing Note Patient is in stable condition, however, is confused and disrobing herself. RUE Picc line is patent and wrapped in kerlex. Bed is in low position. No sings of distress noted. Will give report to the oncoming nurse.
[2016-12-10 19:45] VITALS: BP 128/93; PULSE 68; RESP 18; TEMP 97.1; O2SAT 97
--- NOTE | 2016-12-10 19:45 | NUR ---
initial Note Report received from Florinda JUNE. Patient is currently resting in bed. call light is within reach. Patient is in stable condition. IV is on the right hand 24g currently running NS@70ml/hr. no infiltration noted. scds are on bilaterally. foam heel protectors are in place and pt. heels are elevated on a pillow. Will continue to monitor.
--- NOTE | 2016-12-10 22:05 | NUR ---
rounds pt resting in bed quietly. no s/s of sob or distress noted. assisted to a comfortable position in bed. pt. denies pain. iv fluids cont. to infuse well. will cont. to monitor for any changes. safety and fall precautions in place, call light in reach.
--- NOTE | 2016-12-11 00:30 | NUR ---
rounds pt resting in bed with eyes closed. chest rise and fall noted. no s/s of sob or distress, no facial grimacing indicating any pain. iv fluids cont. to infuse well. scds are on bilaterally. will cont. to monitor for any changes. safety and fall precautions in place, call light in reach.
[2016-12-11 01:07] VITALS: BP 148/66; PULSE 63; RESP 17; TEMP 97.4; O2SAT 97
--- NOTE | 2016-12-11 02:12 | NUR ---
ROUNDS PT RESTING IN BED WITH EYES CLOSED.CHEST RISE AND FALL NOTED. NO S/S OF SOB OR DISTRESS. IV FLUIDS INFUSING WELL ORDERED. WILL CONT. TO MONITOR FOR CHANGES. SAFETY AND FALL PRECAUTIONS IN PLACE. CALL LIGHT IN REACH.
--- NOTE | 2016-12-11 04:30 | NUR ---
ROUNDS PT RESTING IN BED WITH EYES CLOSED.CHEST RISE AND FALL NOTED. NO S/S OF SOB OR DISTRESS. IV FLUIDS INFUSING WELL ORDERED. HEELS REMAIN ELEVATED ON PILLOW WITH FOAM HEEL PROTECTORS IN PLACE BILATERALLY. WILL CONT. TO MONITOR FOR CHANGES. SAFETY AND FALL PRECAUTIONS IN PLACE. CALL LIGHT IN REACH.
[2016-12-11 05:03] VITALS: BP 137/72; PULSE 65; RESP 15; TEMP 97; O2SAT 100
[2016-12-11] MEDS: LEVOTHYROXINE SODIUM 0.137 MG TABLET PO SCH (06:17)
[2016-12-11] MEDS: NACL 0.9% 1,000 ML IV SCH ×2 (06:18→11:44)
--- NOTE | 2016-12-11 06:47 | NUR ---
CLOSING NOTE PT. RESTING IN BED WITH EYES CLOSED. NO S/S OF SOB OR DISTRESS NOTED AT THIS TIME. NO FACIAL GRIMACING INDICATING PAIN. MORNING MEDICATIONS WERE GIVEN AND CRUSHED AND MIXED WITH APPLE SAUCE. NO SIGNS OF ASPIRATION NOTED. IV FLUIDS CONT. TO INFUSE WELL. PT. HEELS REMAIN ELEVATED ON PILLOW, FOAM HEEL PROTECTORS IN PLACE BILATERALLY. ALL NECESSARY NEEDS WERE MET THIS SHIFT. SAFETY AND FALL PRECAUTIONS WERE MAINTAINED. WILL ENDORSE CARE TO AM NURSE. CALL LIGHT IN REACH. BED IN LOWEST LOCKED POSITION. ALARM IS ON.
--- NOTE | 2016-12-11 07:33 | NUR ---
OPENING NOTE RECEIVED REPORT FROM COUNTER FORMER NURSE. PATIENT RESTING COMFORTABLY AT THIS TIME. PATIENT HAS NO COMPLAINTS OF PAIN, NO NOTABLE SIGNS OF DISTRESS AT THIS TIME. PATIENT IS AAOX1. PATIENT IV RUNNING PER MD ORDERS. PATIENTS BED IN LOWEST POSITION, CALL LIGHT WITHIN REACH, AND BED ALARM IS ON. PATIENT BED HAS 2 SIDE RAILS UP FOR SAFETY. WILL CONTINUE TO MONITOR PATIENT FOR CHANGES IN STATUS.
[2016-12-11 07:54] LABS: ANION GAP 9 (5-15); CALCIUM 9.9 mg/dL (8.4-11.0); CHLORIDE 113 mmol/L (98-107); CREATININE 0.98 mg/dL (0.55-1.30); GLUCOSE 102 mg/dL (70-99); SODIUM SERUM 143 mmol/L (136-145); UREA NITROGEN, BLOOD 12 mg/dL (8-21)
[2016-12-11 07:56] LABS: EOSINOPHILS # (AUTO) 0.6 K/uL (0.0-0.4); EOSINOPHILS % (AUTO) 6.1 % (0.0-4.0); HEMOGLOBIN 9.8 g/dL (12.0-16.0); LYMPHOCYTES # (AUTO) 1.8 K/uL (1.0-5.5); LYMPHOCYTES % (AUTO) 19.5 % (20.5-51.5); MEAN CORPUSCULAR HEMOGLOBIN 30 pg (27-31); MEAN CORPUSCULAR HGB CONC 33 % (32-36); MEAN CORPUSCULAR VOLUME 93 fL (79.0-98.0); MONOCYTES # (AUTO) 0.4 K/uL (0.0-1.0); MONOCYTES % (AUTO) 4.4 % (1.7-9.3); NEUTROPHILS # (AUTO) 6.3 K/uL (1.8-7.7); PLATELET COUNT (AUTO) 160 K/uL (130-430); RED BLOOD CELL COUNT(AUTO) 3.22 MIL/uL (4.2-6.2); RED CELL DISTRIBUTION WIDTH 14.8 % (9.0-15.0); WHITE BLOOD COUNT (AUTO) 9.1 K/uL (4.8-10.8)
[2016-12-11 08:24] VITALS: BP 140/89; PULSE 62; RESP 14; TEMP 98.1; O2SAT 99
[2016-12-11] MEDS: FLUCONAZOLE 100 mg/ NS 50 ML IV SCH (08:56)
[2016-12-11] MEDS: ASPIRIN 81 MG TABLET(ECOTRIN) PO SCH (08:56)
[2016-12-11] MEDS: ATORVASTATIN 10 MG TABLET PO SCH (08:57)
[2016-12-11] MEDS: ANTIFUNGAL CLEAR OINTMENT TP SCH ×2 (08:57→20:55)
[2016-12-11] MEDS: CLOTRIMAZOLE 1% TOPICAL CREAM 15 GM TP SCH ×2 (08:57→20:54)
--- NOTE | 2016-12-11 10:28 | NUR ---
1000 NOTE PATIENT RESTING COMFORTABLY AT THIS TIME. NO NOTABLE SIGNS OF DISTRESS AT THIS TIME, NO COMPLAINTS OF PAIN AT THIS TIME. PATIENT IS TURNED IN BED. BED IN LOWEST POSITION, CALL LIGHT WITHIN REACH, AND 2 SIDE RAILS ARE UP FOR SAFETY. PATIENT ENCOURAGED TO AMBULATE AND CALL IF NEEDS ARISE. WILL CONTINUE TO MONITOR FOR CHANGES IN STATUS. Addendum: 12/11/16 at 1211 by Taylor Carrillo RN WRONG PATIENT, PATIENT NOT ENCOURAGED TO AMBULATE. PATIENT BED REST ONLY.
--- NOTE | 2016-12-11 12:09 | NUR ---
1200 NOTE PATIENT RESTING COMFORTABLY AT THIS TIME. NO NOTABLE SIGNS OF DISTRESS AT THIS TIME, NO COMPLAINTS OF PAIN AT THIS TIME. PATIENT IS TURNED IN BED, IN PROPER ALIGNMENT. PATIENTS LUNCH TRAY ARRIVED, BEING FED BY MEDICAL TRANSPORT SPECIALIST. BED IN LOWEST POSITION, CALL LIGHT WITHIN REACH, AND 2 SIDE RAILS ARE UP FOR SAFETY. HEELS ARE FLOATED AND IN HEEL FLOAT BOOTS. PATIENT ENCOURAGED TO CALL IF NEEDS ARISE. WILL CONTINUE TO MONITOR FOR CHANGES IN STATUS.
[2016-12-11 12:33] VITALS: BP 122/72; PULSE 70; RESP 18; TEMP 97.6; O2SAT 98
--- NOTE | 2016-12-11 15:06 | NUR ---
1400 NOTE PATIENT RESTING COMFORTABLY AT THIS TIME. NO NOTABLE SIGNS OF DISTRESS AT THIS TIME, NO COMPLAINTS OF PAIN AT THIS TIME. PATIENT IS TURNED IN BED, IN PROPER ALIGNMENT. BED IN LOWEST POSITION, CALL LIGHT WITHIN REACH, AND 2 SIDE RAILS ARE UP FOR SAFETY. HEELS ARE FLOATED AND IN HEEL FLOAT BOOTS. WILL CONTINUE TO MONITOR FOR CHANGES IN STATUS.
[2016-12-11 16:03] VITALS: BP 131/72; PULSE 63; RESP 18; TEMP 97.8; O2SAT 99
--- NOTE | 2016-12-11 16:16 | NUR ---
1600 NOTE PATIENT IS HAVING INCREASED SCRATCHING, AND SKIN IRRITATION. CREAM APPLIED TO AREAS OF DISCOMFORT. PATIENT IS RESTING COMFORTABLY, ASIDE FROM THE ITCHING, PATIENT IS HAVING MINIMAL PAIN. PATIENTS BED IN LOWEST POSITION, CALL LIGHT WITHIN REACH, AND 2 SIDE RAILS ARE UP FOR SAFETY. PATIENTS BED ALARM IS ON, PATIENT IS CLOSE TO THE NURSES STATION. WILL CONTINUE TO MONITOR PATIENT FOR CHANGES IN STATUS.
--- NOTE | 2016-12-11 18:29 | NUR ---
1800/CLOSING NOTE WAITING TO GIVE REPORT TO NEWS CLERK NURSE. PATIENT IS HAVING INCREASED SCRATCHING, AND SKIN IRRITATION. PATIENT IS RESTING COMFORTABLY, ASIDE FROM THE ITCHING, PATIENT IS HAVING MINIMAL PAIN. PATIENT REPOSITIONED IN BED. PATIENTS BED IN LOWEST POSITION, CALL LIGHT WITHIN REACH, AND 2 SIDE RAILS ARE UP FOR SAFETY. PATIENTS BED ALARM IS ON, PATIENT IS CLOSE TO THE NURSES STATION. WILL CONTINUE TO MONITOR PATIENT FOR CHANGES IN STATUS.
[2016-12-11 19:40] VITALS: BP 125/70; PULSE 65; RESP 18; TEMP 96.7; O2SAT 97
--- NOTE | 2016-12-11 19:40 | NUR ---
INITIAL NOTES; -Pt is a/ox1, resting in bed. No s/s any pain,sob,or any acute distress noted. PICC line with 2 ports, good blood returns noted, patent,no s/s any infiltration noted. BS present, abdominal soft but distended. Lung sounds clear throughout except bonilla posterior lower lobes diminished. Bonilla pedis pulses present and weak, bonilla lower ankles 2+ edema pitting-elevated with pillows. Unable to discuss poc due to aloc,no family is at bedside. All safety measures in place. Fall precaution in place. Bed locked,low position,side rails x3, bed alarm in place. Place near Nurses' station. Call light w/in reach. Continue to monitor pt Addendum: 12/11/16 at 2045 by Bird Deng RN ADDITIONAL NOTES--GENERALIZED WEAKNESS
--- NOTE | 2016-12-11 22:19 | NUR ---
ROUNDS; -Pt is resting in bed. No s/s any pain,sob,or any acute distress noted. All safety measures in place. Fall precaution in place. Bed locked,low position,side rails x3, bed alarm in place. Place near Nurses' station. Call light w/in reach. Continue to monitor pt
--- NOTE | 2016-12-11 23:25 | NUR ---
ROUNDS;INCONTINENT OF LARGE SEMISOFT BOWEL -Cleaned and provided perineal care. Now, pt is cleaned and dry. Pt denies any pain,sob,or any acute distress. All safety measures in place. Fall precaution in place. Bed locked,low position,side rails x3, bed alarm in place. Place near Nurses' station. Call light w/in reach. Continue to monitor pt
[2016-12-12 01:35] VITALS: BP 113/60; PULSE 73; RESP 16; TEMP 98; O2SAT 96
--- NOTE | 2016-12-12 03:09 | NUR ---
ROUNDS; -Pt is sleeping in bed. No s/s any pain,sob,or any acute distress noted. All safety measures in place. Fall precaution in place. Bed locked,low position,side rails x3, bed alarm in place. Place near Nurses' station. Call light w/in reach. Continue to monitor pt
--- NOTE | 2016-12-12 03:57 | NUR ---
ROUNDS; -Pt is resting. No s/s any pain,sob,or any acute distress noted. All safety measures in place. Turned and repositioned pt. Fall precaution in place. Bed locked,low position,side rails x3, bed alarm in place. Place near Nurses' station. Call light w/in reach. Continue to monitor pt
[2016-12-12 04:50] VITALS: BP 108/75; PULSE 71; RESP 14; TEMP 97.3; O2SAT 97
[2016-12-12] MEDS: LEVOTHYROXINE SODIUM 0.137 MG TABLET PO SCH (06:09)
--- NOTE | 2016-12-12 06:50 | NUR ---
CLOSING NOTES; -Pt is resting in bed. No s/s any pain,sob,or any acute distress noted. PICC line with 2 ports, patent,no s/s any infiltration noted. All safety measures in place. Fall precaution in place. Bed locked,low position,side rails x3, bed alarm in place. Place near Nurses' station. Call light w/in reach. Will endorse to oncoming nurse to continue care.
--- NOTE | 2016-12-12 07:33 | NUR ---
OPENING NOTE RECEIVED REPORT FROM COMPLIANCE ADVISOR NURSE. PATIENT RESTING COMFORTABLY AT THIS TIME. PATIENT HAS NO COMPLAINTS OF PAIN, NO NOTABLE SIGNS OF DISTRESS AT THIS TIME. PATIENT IS AAOX1. PATIENT IV SALINE LOCKED PER MD ORDERS. PATIENT ACTIVITY AT BEDREST. HEEL FLOAT BOOTS ARE APPLIED, REPOSITIONED WITH PILLOWS. PATIENTS BED IN LOWEST POSITION, CALL LIGHT WITHIN REACH, AND BED ALARM IS ON. PATIENT BED HAS 2 SIDE RAILS UP FOR SAFETY. WILL CONTINUE TO MONITOR PATIENT FOR CHANGES IN STATUS.
[2016-12-12] MEDS: ATORVASTATIN 10 MG TABLET PO SCH (08:31)
[2016-12-12] MEDS: ASPIRIN 81 MG TABLET(ECOTRIN) PO SCH (08:31)
[2016-12-12 08:37] VITALS: BP 114/77; PULSE 74; RESP 17; TEMP 97.8; O2SAT 97
[2016-12-12] MEDS: FLUCONAZOLE 100 mg/ NS 50 ML IV SCH (09:17)
[2016-12-12] MEDS: ANTIFUNGAL CLEAR OINTMENT TP SCH (09:18)
[2016-12-12] MEDS: CLOTRIMAZOLE 1% TOPICAL CREAM 15 GM TP SCH (09:18)
--- NOTE | 2016-12-12 10:21 | NUR ---
1000 NOTE PATIENT RESTING COMFORTABLY AT THIS TIME. PATIENT HAS NO COMPLAINTS OF PAIN, NO NOTABLE SIGNS OF DISTRESS AT THIS TIME. PATIENT DOES HAVE MILD ITCHING, ENCOURAGED NOT TO SCRATCH. HEEL FLOAT BOOTS ARE APPLIED, REPOSITIONED WITH PILLOWS. PATIENTS BED IN LOWEST POSITION, CALL LIGHT WITHIN REACH, AND BED ALARM IS ON. PATIENT BED HAS 2 SIDE RAILS UP FOR SAFETY. WILL CONTINUE TO MONITOR PATIENT FOR CHANGES IN STATUS.
--- NOTE | 2016-12-12 10:50 | NUR ---
DISCHARGE PLANNING DC order back to [facility]. Faxed SNF referral to [facility] [phone]. Will follow up. Addendum: 12/12/16 at 1238 by Meghann Ocampo DP Spoke with Richa in admitting at [facility] patient assigned to room 309A RN to report [phone], bed available anytime. SHAYLEE Vazquez made aware. Called [facility] spoke with Marie nicole S transport cigar packer and picker 2pm Placed transportation packet in nurses station. Called patient daughter Nanci Groves [phone] left voice message requesting return call back. Called and spoke with patient granddaughter Gregory Matti [phone] regarding discharge back to [facility]. Gregory stated she could not hear me and call got disconnected. Called Gregory back and is agreeable with patient discharge back to [facility] today.
[2016-12-12 11:28] VITALS: BP 144/77; PULSE 68; RESP 18; TEMP 97.7; O2SAT 96
--- NOTE | 2016-12-12 13:08 | NUR ---
1200 NOTE PATIENT RESTING COMFORTABLY AT THIS TIME. PATIENT HAS NO COMPLAINTS OF PAIN, NO NOTABLE SIGNS OF DISTRESS AT THIS TIME. PATIENT DOES HAVE MILD ITCHING, ENCOURAGED NOT TO SCRATCH. HEEL FLOAT BOOTS ARE APPLIED, REPOSITIONED WITH PILLOWS. PATIENT IS PLACED IN [place]ANGE BLANKET/GOWN FOR TRANSPORTATION. PATIENT PENDING DISCHARGE BACK TO [facility]. TRANSPORT ARRANGED FOR 1400. PATIENTS BED IN LOWEST POSITION, CALL LIGHT WITHIN REACH, AND BED ALARM IS ON. PATIENT BED HAS 2 SIDE RAILS UP FOR SAFETY. WILL CONTINUE TO MONITOR PATIENT FOR CHANGES IN STATUS.
[2016-12-12 13:39] VITALS: BP 105/75; PULSE 72; RESP 14; TEMP 97.9; O2SAT 95
--- NOTE | 2016-12-12 14:21 | NUR ---
D/C Patient Patient given medication reconciliation form and D/C instructions, transitional care teaching provided to patient, patient confused. Patient in stable condition, ID band removed. PICC catheter removed, intact and dressing applied, no active bleeding. Rx of given. Patient educated on pain management. All belongings sent with patient. PATIENT TRANSPORTED BY EMS [facility] TO [facility]. EMS [facility] WAS GIVEN PACKET OF INFORMATION FOR RECEIVING FACILITY. PATIENT [facility] GIVEN INFORMATIONR REGARDING TRANSFER, AND RECEIVING FACILITY PROVIDED REPORT.
== END 2016-12-12 14:21 | DRG 871 ==
LOC: SED 13:34 → SIC 16:13 → STU 12-06 16:56 → SMU 12-09 21:57
PROVIDERS: ADMIT Family Medicine; ATTEND Family Medicine
PROC: 02HV33Z Insertion of Infusion Device into Superior Vena Cava, Percutaneous Approach (ICD-10-PCS; principal; 2016-12-10)
PROC: B548ZZA Ultrasonography of Superior Vena Cava, Guidance (ICD-10-PCS; 2016-12-10)
DX: A41.50 Gram-negative sepsis, unspecified (principal); R65.21 Severe sepsis with septic shock; J18.9 Pneumonia, unspecified organism; I63.9 Cerebral infarction, unspecified; N39.0 Urinary tract infection, site not specified; E87.2 Acidosis; E87.0 Hyperosmolality and hypernatremia; G89.4 Chronic pain syndrome; B36.9 Superficial mycosis, unspecified; E03.9 Hypothyroidism, unspecified; E66.9 Obesity, unspecified; E78.5 Hyperlipidemia, unspecified; F03.90 Unspecified dementia, unspecified severity, without behavioral disturbance, psychotic disturbance, mood disturbance, and anxiety; B37.2 Candidiasis of skin and nail; E11.9 Type 2 diabetes mellitus without complications; A49.8 Other bacterial infections of unspecified site; E87.8 Other disorders of electrolyte and fluid balance, not elsewhere classified; E86.0 Dehydration; E87.6 Hypokalemia; N18.9 Chronic kidney disease, unspecified; I12.9 Hypertensive chronic kidney disease with stage 1 through stage 4 chronic kidney disease, or unspecified chronic kidney disease; Z95.0 Presence of cardiac pacemaker; Z88.5 Allergy status to narcotic agent; Z88.8 Allergy status to other drugs, medicaments and biological substances; Z88.1 Allergy status to other antibiotic agents; Z79.82 Long term (current) use of aspirin; Z79.899 Other long term (current) drug therapy; Z68.30 Body mass index [BMI] 30.0-30.9, adult
CPT/HCPCS: 36415; 71010; 76937; 80048; 80053; 81000-TC; 83605; 84484; 85007; 85025; 85027; 85610-TC; 85730-TC; 87040-TC; 87081; 87086; 87186-TC; 87210-TC; 93005; 96361; 96365; 99291; C1751; C1769; J0692; J0696; J1200; J1450; J2405; J3370; J3490; J7030; J7040; J7050; J7060

== ENCOUNTER 2017-01-29 13:50 | Inpatient (IN) | payer OTHER, MEDICAID ==
[~2017-01-29] VITALS: Ht 167.6 cm; Wt 70.8 kg
[~2017-01-29 13:50] MED LIST: ACET-2165 PO; ASCO500T20 PO; ASPI-1063 PO; ATOR10TA68 PO; CARV6.2554 PO; CYAN100067 PO; CYM30 PO; DONE10TA44 PO; HAL1 PO; HYDR2TAB34 PO; LACT10SO66 PO; LEVO137T2 PO; LOSA100T11 PO; MEGE400O PO; MET10 PO; MULT-300 PO; ONDA4TAB5 PO; POLY17PO4 PO
[2017-01-29 13:55] VITALS: BP_SYST 113
[2017-01-29 14:34] LABS: BASOPHILS % (AUTO) 0.4 % (0.0-2.0); EOSINOPHILS # (AUTO) 0.5 K/uL (0.0-0.4); HEMOGLOBIN 11.6 g/dL (12.0-16.0); LYMPHOCYTES # (AUTO) 1.5 K/uL (1.0-5.5); LYMPHOCYTES % (AUTO) 13.1 % (20.5-51.5); MEAN CORPUSCULAR HEMOGLOBIN 31 pg (27-31); MEAN CORPUSCULAR HGB CONC 32 % (32-36); MEAN CORPUSCULAR VOLUME 95 fL (79.0-98.0); MONOCYTES # (AUTO) 0.6 K/uL (0.0-1.0); NEUTROPHILS # (AUTO) 8.7 K/uL (1.8-7.7); NEUTROPHILS % (AUTO) 77.5 % (40.0-70.0); PLATELET COUNT (AUTO) 177 K/uL (130-430); RED BLOOD CELL COUNT(AUTO) 3.79 MIL/uL (4.2-6.2); RED CELL DISTRIBUTION WIDTH 14.4 % (9.0-15.0); WHITE BLOOD COUNT (AUTO) 11.3 K/uL (4.8-10.8)
[2017-01-29 14:41] LABS: ANION GAP 6 (5-15); CALCIUM 10.2 mg/dL (8.4-11.0); CHLORIDE 112 mmol/L (98-107); CREATININE 1.16 mg/dL (0.55-1.30); GLUCOSE 129 mg/dL (70-99); POTASSIUM 4.5 mmol/L (3.5-5.1); SODIUM SERUM 143 mmol/L (136-145); UREA NITROGEN, BLOOD 34 mg/dL (8-21)
[2017-01-29 14:44] LABS: PROTHROMBIN TIME 10.4 SECS (9.5-12.5)
[2017-01-29 14:46] LABS: ALANINE AMINOTRANSFERASE 19 U/L (12-78); ALBUMIN 3.3 g/dL (3.4-4.8); ASPARTATE AMINOTRANSFERASE 17 U/L (10-37); CREATINE KINASE, TOTAL 28 U/L (26-192); TOTAL BILIRUBIN 0.4 mg/dL (0.0-1.0); TOTAL PROTEIN, SERUM 6.7 g/dL (6.4-8.3)
[2017-01-29] MEDS ORDERED: HYDROcodone/ACETAMIN 10-325 MG TAB PO ONE (15:45)
[2017-01-29] MEDS ORDERED: NACL 0.9% 1,000 ML IV ONE (16:00)
[2017-01-29] MEDS ORDERED: NACL 0.9% 1,000 ML IV SCH (17:00)
[2017-01-29 17:10] VITALS: BP_SYST 150
[2017-01-29 18:21] LABS: BILIRUBIN,URINE NEGATIVE (NEGATIVE); BLOOD, URINE 1+ (NEGATIVE); CLARITY/URINE HAZY (CLEAR); COLOR,URINE YELLOW (YELLOW); GLUCOSE,URINE NEGATIVE (NEGATIVE); KETONES,URINE NEGATIVE (NEGATIVE); LEUKOCYTE ESTERASE ,URINE 3+ (NEGATIVE); NITRITE, URINE POSITIVE (NEGATIVE); PROTEIN URINE NEGATIVE (NEGATIVE); UROBILINOGEN,URINE 0.2 (0.2-1.0)
[2017-01-29 18:32] LABS: BACTERIA,URINE MANY /HPF (None Seen); MUCUS,URINE 1+ /LPF (None Seen); WBC,URINE >100 /HPF (0-3)
[2017-01-29] MEDS: ASCORBIC ACID 500 MG TABLET PO SCH (19:30)
[2017-01-29] MEDS: ATORVASTATIN 10 MG TABLET PO SCH (19:30)
[2017-01-29] MEDS: LOSARTAN POTASSIUM 50 MG TABLET (COZAAR) PO SCH (19:30)
[2017-01-29] MEDS: CYANOCOBALAMIN 1000 mCg TABLET PO SCH (19:30)
[2017-01-29] MEDS: ASPIRIN 81 MG TABLET(ECOTRIN) PO SCH (19:30)
[2017-01-29] MEDS ORDERED: ONDANSETRON 4 MG ODT TAB PO PRN (19:30)
[2017-01-29] MEDS: LEVOTHYROXINE SODIUM 0.137 MG TABLET PO SCH (19:30)
[2017-01-29] MEDS: DULoxetine HCL 30 MG CAPSULE.DR (CYMBALTA) PO SCH (19:30)
[2017-01-29] MEDS ORDERED: LACTULOSE 20 GM/30 ML UDC PO PRN (19:30)
[2017-01-29 20:00] VITALS: BP_SYST 125
[2017-01-29] MEDS ORDERED: cefTRIAXone 1 GM IVPB PREMIX 50 ML IV ONE (20:11)
[2017-01-29] MEDS: METHADONE HCL 10 MG TABLET PO SCH ×2 (21:00→22:19)
[2017-01-29] MEDS ORDERED: DONEPEZIL HCL 5 MG TABLET (ARICEPT) PO SCH (21:00)
[2017-01-29] MEDS: cefTRIAXone 1 GM in D5W 50 ML IV SCH (21:00)
[2017-01-29] MEDS: MEGESTROL ACETATE 400 MG/10 ML UDC PO SCH (22:20)
[2017-01-29] MEDS: HYDROmorphone 2 MG TAB PO PRN (22:21)
[2017-01-29] MEDS: CARVEDILOL 6.25 MG TABLET (COREG) PO SCH (22:34)
[2017-01-29] MEDS: HALOPERIDOL 1 MG TABLET (HALDOL) PO SCH (22:35)
[2017-01-29] MEDS: ACETAMINOPHEN 325 MG TABLET PO PRN (23:54)
[2017-01-30] VITALS (7 sets, daily range): BP systolic 95–142
[2017-01-30] MEDS: LEVOTHYROXINE SODIUM 0.137 MG TABLET PO SCH (06:05)
[2017-01-30 07:57] LABS: BASOPHILS # (AUTO) 0.1 K/uL (0.0-0.2); BASOPHILS % (AUTO) 0.6 % (0.0-2.0); EOSINOPHILS # (AUTO) 0.5 K/uL (0.0-0.4); HEMOGLOBIN 12.1 g/dL (12.0-16.0); LYMPHOCYTES # (AUTO) 1.6 K/uL (1.0-5.5); LYMPHOCYTES % (AUTO) 13.4 % (20.5-51.5); MEAN CORPUSCULAR HEMOGLOBIN 31 pg (27-31); MEAN CORPUSCULAR HGB CONC 33 % (32-36); MEAN CORPUSCULAR VOLUME 96 fL (79.0-98.0); MONOCYTES # (AUTO) 0.7 K/uL (0.0-1.0); MONOCYTES % (AUTO) 5.7 % (1.7-9.3); NEUTROPHILS # (AUTO) 8.8 K/uL (1.8-7.7); NEUTROPHILS % (AUTO) 76.3 % (40.0-70.0); RED BLOOD CELL COUNT(AUTO) 3.87 MIL/uL (4.2-6.2); RED CELL DISTRIBUTION WIDTH 14.6 % (9.0-15.0)
[2017-01-30 07:59] LABS: WHITE BLOOD COUNT (AUTO) 11.7 K/uL (4.8-10.8)
[2017-01-30 08:53] LABS: PLATELET COUNT (AUTO) 70 K/uL (130-430)
[2017-01-30] MEDS: HALOPERIDOL 1 MG TABLET (HALDOL) PO SCH ×2 (09:44→22:12)
[2017-01-30] MEDS: ASCORBIC ACID 500 MG TABLET PO SCH (09:44)
[2017-01-30] MEDS: MEGESTROL ACETATE 400 MG/10 ML UDC PO SCH ×2 (09:44→22:11)
[2017-01-30] MEDS: CYANOCOBALAMIN 1000 mCg TABLET PO SCH (09:45)
[2017-01-30] MEDS: METHADONE HCL 10 MG TABLET PO SCH ×3 (09:46→22:11)
[2017-01-30] MEDS: DULoxetine HCL 30 MG CAPSULE.DR (CYMBALTA) PO SCH (09:46)
[2017-01-30] MEDS: ASPIRIN 81 MG TABLET(ECOTRIN) PO SCH (09:46)
[2017-01-30] MEDS: LOSARTAN POTASSIUM 50 MG TABLET (COZAAR) PO SCH (09:46)
[2017-01-30] MEDS: ATORVASTATIN 10 MG TABLET PO SCH (09:47)
[2017-01-30] MEDS: CARVEDILOL 6.25 MG TABLET (COREG) PO SCH ×2 (09:47→22:13)
[2017-01-30] MEDS: POLYETHYLENE GLYCOL 3350, 17 GM/ POWD.PACK PO SCH (10:11)
[2017-01-30] MEDS ORDERED: IVERMECTIN 3 MG TABLET PO ONE (11:00)
[2017-01-30] MEDS ORDERED: CLOTRIMAZOLE/BETAMET DIPROP 15 GM TUBE TP SCH (11:00)
[2017-01-30] MEDS: DIPHENHYDRAMINE HCL 25 MG CAPSULE PO SCH ×3 (12:01→22:13)
[2017-01-30] MEDS: cefTRIAXone 1 GM in D5W 50 ML IV SCH (22:11)
[2017-01-30] MEDS: CLOTRIMAZOLE/BETAMET DIPROP 15 GM TUBE TP SCH (22:55)
[2017-01-30] MEDS: HYDROmorphone 2 MG TAB PO PRN (23:34)
[2017-01-31] VITALS: BP_SYST 131
[2017-01-31 04:00] VITALS: BP_SYST 124
[2017-01-31] MEDS: LEVOTHYROXINE SODIUM 0.137 MG TABLET PO SCH (06:29)
[2017-01-31] MEDS: ACETAMINOPHEN 325 MG TABLET PO PRN (06:33)
[2017-01-31 07:22] LABS: EOSINOPHILS # (AUTO) 0.4 K/uL (0.0-0.4); EOSINOPHILS % (AUTO) 3.3 % (0.0-4.0); HEMATOCRIT 34.1 % (36-48); HEMOGLOBIN 11.3 g/dL (12.0-16.0); LYMPHOCYTES # (AUTO) 1.5 K/uL (1.0-5.5); LYMPHOCYTES % (AUTO) 12.2 % (20.5-51.5); MEAN CORPUSCULAR HEMOGLOBIN 31 pg (27-31); MEAN CORPUSCULAR HGB CONC 33 % (32-36); MEAN CORPUSCULAR VOLUME 95 fL (79.0-98.0); MONOCYTES # (AUTO) 0.8 K/uL (0.0-1.0); MONOCYTES % (AUTO) 6.5 % (1.7-9.3); NEUTROPHILS # (AUTO) 9.3 K/uL (1.8-7.7); PLATELET COUNT (AUTO) 153 K/uL (130-430); RED BLOOD CELL COUNT(AUTO) 3.59 MIL/uL (4.2-6.2); RED CELL DISTRIBUTION WIDTH 14.7 % (9.0-15.0)
[2017-01-31 08:31] VITALS: BP_SYST 168
[2017-01-31] MEDS: ASCORBIC ACID 500 MG TABLET PO SCH (09:41)
[2017-01-31] MEDS: ATORVASTATIN 10 MG TABLET PO SCH (09:41)
[2017-01-31] MEDS: CYANOCOBALAMIN 1000 mCg TABLET PO SCH (09:41)
[2017-01-31] MEDS: CARVEDILOL 6.25 MG TABLET (COREG) PO SCH ×2 (09:42→20:30)
[2017-01-31] MEDS: ASPIRIN 81 MG TABLET(ECOTRIN) PO SCH (09:42)
[2017-01-31] MEDS: DIPHENHYDRAMINE HCL 25 MG CAPSULE PO SCH ×4 (09:42→20:29)
[2017-01-31] MEDS: METHADONE HCL 10 MG TABLET PO SCH ×3 (09:43→20:31)
[2017-01-31] MEDS: DULoxetine HCL 30 MG CAPSULE.DR (CYMBALTA) PO SCH (09:43)
[2017-01-31] MEDS: LOSARTAN POTASSIUM 50 MG TABLET (COZAAR) PO SCH (09:43)
[2017-01-31] MEDS: MEGESTROL ACETATE 400 MG/10 ML UDC PO SCH ×2 (09:44→20:29)
[2017-01-31] MEDS: POLYETHYLENE GLYCOL 3350, 17 GM/ POWD.PACK PO SCH (09:44)
[2017-01-31] MEDS: HALOPERIDOL 1 MG TABLET (HALDOL) PO SCH ×2 (09:44→20:30)
[2017-01-31] MEDS: CLOTRIMAZOLE/BETAMET DIPROP 15 GM TUBE TP SCH ×2 (09:57→20:32)
[2017-01-31 12:51] VITALS: BP_SYST 110
[2017-01-31] MEDS: ERTAPENEM SODIUM 1 GM in NS 50 ML IV SCH (13:58)
[2017-01-31 14:24] LABS: A/G RATIO 1.2 (0.7-1.7); ALBUMIN 3.2 g/dL (2.9-4.4); ALPHA-1-GLOBULIN 0.2 g/dL (0.0-0.4); ALPHA-2-GLOBULIN 0.7 g/dL (0.4-1.0); BETA GLOBULIN 0.8 g/dL (0.7-1.3); FOLATE (FOLIC ACID) 12.9 ng/mL (>3.0); GLOBULIN, TOTAL 2.7 g/dL (2.2-3.9); M-SPIKE Not Observed g/dL (Not Observed)
[2017-01-31 16:47] VITALS: BP_SYST 128
[2017-01-31 20:00] VITALS: BP_SYST 97
[2017-02-01] VITALS (7 sets, daily range): BP systolic 89–123
[2017-02-01] MEDS: HYDROmorphone 2 MG TAB PO PRN (03:13)
[2017-02-01] MEDS: LEVOTHYROXINE SODIUM 0.137 MG TABLET PO SCH (06:10)
[2017-02-01] MEDS: DIPHENHYDRAMINE HCL 25 MG CAPSULE PO SCH ×4 (09:22→20:43)
[2017-02-01] MEDS: POLYETHYLENE GLYCOL 3350, 17 GM/ POWD.PACK PO SCH (09:24)
[2017-02-01] MEDS: MEGESTROL ACETATE 400 MG/10 ML UDC PO SCH ×2 (09:24→20:42)
[2017-02-01] MEDS: METHADONE HCL 10 MG TABLET PO SCH ×3 (09:25→20:45)
[2017-02-01] MEDS: ATORVASTATIN 10 MG TABLET PO SCH (09:25)
[2017-02-01] MEDS: HALOPERIDOL 1 MG TABLET (HALDOL) PO SCH ×2 (09:26→20:43)
[2017-02-01] MEDS: ASPIRIN 81 MG TABLET(ECOTRIN) PO SCH (09:26)
[2017-02-01] MEDS: LOSARTAN POTASSIUM 50 MG TABLET (COZAAR) PO SCH (09:27)
[2017-02-01] MEDS: CYANOCOBALAMIN 1000 mCg TABLET PO SCH (09:27)
[2017-02-01] MEDS: ASCORBIC ACID 500 MG TABLET PO SCH (09:27)
[2017-02-01] MEDS: DULoxetine HCL 30 MG CAPSULE.DR (CYMBALTA) PO SCH (09:27)
[2017-02-01] MEDS: CARVEDILOL 6.25 MG TABLET (COREG) PO SCH ×2 (09:27→20:44)
[2017-02-01] MEDS: CLOTRIMAZOLE/BETAMET DIPROP 15 GM TUBE TP SCH ×2 (09:28→20:42)
[2017-02-01] MEDS: ERTAPENEM SODIUM 1 GM in NS 50 ML IV SCH (12:13)
[2017-02-01] MEDS ORDERED: CYANOCOBALAMIN 1000 MCG/ML VIAL IM ONE (23:00)
[2017-02-02 04:06] VITALS: BP_SYST 117
[2017-02-02] MEDS: LEVOTHYROXINE SODIUM 0.112 MG TABLET PO SCH (06:40)
[2017-02-02 07:15] LABS: ANION GAP 6 (5-15); CHLORIDE 109 mmol/L (98-107); CREATININE 1.27 mg/dL (0.55-1.30); GLUCOSE 99 mg/dL (70-99); SODIUM SERUM 139 mmol/L (136-145); UREA NITROGEN, BLOOD 39 mg/dL (8-21)
[2017-02-02 07:20] LABS: BASOPHILS % (AUTO) 0.1 % (0.0-2.0); EOSINOPHILS # (AUTO) 0.3 K/uL (0.0-0.4); EOSINOPHILS % (AUTO) 2.6 % (0.0-4.0); HEMOGLOBIN 11.5 g/dL (12.0-16.0); LYMPHOCYTES # (AUTO) 1.6 K/uL (1.0-5.5); LYMPHOCYTES % (AUTO) 13.1 % (20.5-51.5); MEAN CORPUSCULAR HEMOGLOBIN 31 pg (27-31); MEAN CORPUSCULAR HGB CONC 33 % (32-36); MEAN CORPUSCULAR VOLUME 95 fL (79.0-98.0); MONOCYTES # (AUTO) 0.7 K/uL (0.0-1.0); MONOCYTES % (AUTO) 5.7 % (1.7-9.3); NEUTROPHILS # (AUTO) 9.6 K/uL (1.8-7.7); NEUTROPHILS % (AUTO) 78.5 % (40.0-70.0); PLATELET COUNT (AUTO) 168 K/uL (130-430); RED BLOOD CELL COUNT(AUTO) 3.68 MIL/uL (4.2-6.2); RED CELL DISTRIBUTION WIDTH 14.4 % (9.0-15.0); WHITE BLOOD COUNT (AUTO) 12.2 K/uL (4.8-10.8)
[2017-02-02] MEDS: CARVEDILOL 6.25 MG TABLET (COREG) PO SCH ×2 (09:00→20:19)
[2017-02-02] MEDS: LOSARTAN POTASSIUM 50 MG TABLET (COZAAR) PO SCH (09:00)
[2017-02-02 09:11] VITALS: BP_SYST 102
[2017-02-02] MEDS: MEGESTROL ACETATE 400 MG/10 ML UDC PO SCH ×2 (09:15→20:47)
[2017-02-02] MEDS: CYANOCOBALAMIN 1000 mCg TABLET PO SCH (09:16)
[2017-02-02] MEDS: ASCORBIC ACID 500 MG TABLET PO SCH (09:16)
[2017-02-02] MEDS: HALOPERIDOL 1 MG TABLET (HALDOL) PO SCH ×2 (09:16→20:20)
[2017-02-02] MEDS: ASPIRIN 81 MG TABLET(ECOTRIN) PO SCH (09:16)
[2017-02-02] MEDS: ATORVASTATIN 10 MG TABLET PO SCH (09:16)
[2017-02-02] MEDS: DULoxetine HCL 30 MG CAPSULE.DR (CYMBALTA) PO SCH (09:16)
[2017-02-02] MEDS: DIPHENHYDRAMINE HCL 25 MG CAPSULE PO SCH ×4 (09:16→20:19)
[2017-02-02] MEDS: METHADONE HCL 10 MG TABLET PO SCH ×3 (09:27→20:20)
[2017-02-02] MEDS: POLYETHYLENE GLYCOL 3350, 17 GM/ POWD.PACK PO SCH (09:54)
[2017-02-02] MEDS: CLOTRIMAZOLE/BETAMET DIPROP 15 GM TUBE TP SCH ×2 (09:54→20:47)
[2017-02-02] MEDS: ERTAPENEM SODIUM 1 GM in NS 50 ML IV SCH (11:47)
[2017-02-02] MEDS: ACETAMINOPHEN 325 MG TABLET PO PRN ×2 (11:48→21:42)
[2017-02-02 12:00] VITALS: BP_SYST 117
[2017-02-02] MEDS: HYDROmorphone 2 MG TAB PO PRN (16:17)
[2017-02-02 18:15] VITALS: BP_SYST 115
[2017-02-02 20:36] VITALS: BP_SYST 137
[2017-02-02 23:36] VITALS: BP_SYST 120
[2017-02-03 03:59] VITALS: BP_SYST 116
[2017-02-03] MEDS: ACETAMINOPHEN 325 MG TABLET PO PRN ×3 (04:15→21:15)
[2017-02-03] MEDS: LEVOTHYROXINE SODIUM 0.112 MG TABLET PO SCH (05:53)
[2017-02-03] MEDS: HYDROmorphone 2 MG TAB PO PRN (05:54)
[2017-02-03 08:00] VITALS: BP_SYST 127
[2017-02-03] MEDS: POLYETHYLENE GLYCOL 3350, 17 GM/ POWD.PACK PO SCH (08:42)
[2017-02-03] MEDS: CLOTRIMAZOLE/BETAMET DIPROP 15 GM TUBE TP SCH ×2 (08:42→21:18)
[2017-02-03] MEDS: MEGESTROL ACETATE 400 MG/10 ML UDC PO SCH ×2 (08:42→21:14)
[2017-02-03] MEDS: ATORVASTATIN 10 MG TABLET PO SCH (08:43)
[2017-02-03] MEDS: DIPHENHYDRAMINE HCL 25 MG CAPSULE PO SCH ×4 (08:43→21:16)
[2017-02-03] MEDS: DULoxetine HCL 30 MG CAPSULE.DR (CYMBALTA) PO SCH (08:43)
[2017-02-03] MEDS: ASPIRIN 81 MG TABLET(ECOTRIN) PO SCH (08:43)
[2017-02-03] MEDS: HALOPERIDOL 1 MG TABLET (HALDOL) PO SCH ×2 (08:43→21:18)
[2017-02-03] MEDS: ASCORBIC ACID 500 MG TABLET PO SCH (08:44)
[2017-02-03] MEDS: CYANOCOBALAMIN 1000 mCg TABLET PO SCH (08:44)
[2017-02-03] MEDS: CARVEDILOL 6.25 MG TABLET (COREG) PO SCH ×2 (08:48→21:16)
[2017-02-03] MEDS: LOSARTAN POTASSIUM 50 MG TABLET (COZAAR) PO SCH (08:48)
[2017-02-03] MEDS: METHADONE HCL 10 MG TABLET PO SCH ×3 (08:50→21:17)
[2017-02-03 12:59] VITALS: BP_SYST 124
[2017-02-03] MEDS: ERTAPENEM SODIUM 1 GM in NS 50 ML IV SCH (13:21)
[2017-02-03 16:56] VITALS: BP_SYST 144
[2017-02-03 19:45] VITALS: BP_SYST 108
[2017-02-04 01:36] VITALS: BP_SYST 127
[2017-02-04] MEDS: ACETAMINOPHEN 325 MG TABLET PO PRN ×2 (02:37→11:46)
[2017-02-04 02:57] VITALS: BP_SYST 144
[2017-02-04] MEDS: LEVOTHYROXINE SODIUM 0.112 MG TABLET PO SCH (06:12)
[2017-02-04] MEDS: METHADONE HCL 10 MG TABLET PO SCH ×2 (08:54→14:40)
[2017-02-04] MEDS: ATORVASTATIN 10 MG TABLET PO SCH (08:54)
[2017-02-04] MEDS: DIPHENHYDRAMINE HCL 25 MG CAPSULE PO SCH ×2 (08:54→13:00)
[2017-02-04] MEDS: CYANOCOBALAMIN 1000 mCg TABLET PO SCH (08:54)
[2017-02-04] MEDS: DULoxetine HCL 30 MG CAPSULE.DR (CYMBALTA) PO SCH (08:54)
[2017-02-04] MEDS: ASCORBIC ACID 500 MG TABLET PO SCH (08:54)
[2017-02-04] MEDS: HALOPERIDOL 1 MG TABLET (HALDOL) PO SCH (08:54)
[2017-02-04] MEDS: ASPIRIN 81 MG TABLET(ECOTRIN) PO SCH (08:54)
[2017-02-04] MEDS: POLYETHYLENE GLYCOL 3350, 17 GM/ POWD.PACK PO SCH (09:00)
[2017-02-04] MEDS: MEGESTROL ACETATE 400 MG/10 ML UDC PO SCH (09:00)
[2017-02-04] MEDS: CLOTRIMAZOLE/BETAMET DIPROP 15 GM TUBE TP SCH (09:17)
[2017-02-04] MEDS: LOSARTAN POTASSIUM 50 MG TABLET (COZAAR) PO SCH (09:18)
[2017-02-04] MEDS: CARVEDILOL 6.25 MG TABLET (COREG) PO SCH (09:19)
[2017-02-04 09:20] VITALS: BP_SYST 114
[2017-02-04] MEDS: ERTAPENEM SODIUM 1 GM in NS 50 ML IV SCH (11:46)
[2017-02-04 12:22] VITALS: BP_SYST 150
[2017-02-04 15:08] VITALS: BP_SYST 99
== END 2017-02-04 15:30 | DRG 690 ==
LOC: SED 13:50 → STU 16:30 → SMU 01-31 13:13
PROVIDERS: ADMIT Family Medicine; ATTEND Family Medicine
DX: N39.0 Urinary tract infection, site not specified (principal); S09.90XA Unspecified injury of head, initial encounter; G30.9 Alzheimer's disease, unspecified; N31.9 Neuromuscular dysfunction of bladder, unspecified; G62.9 Polyneuropathy, unspecified; E86.0 Dehydration; F02.80 Dementia in other diseases classified elsewhere, unspecified severity, without behavioral disturbance, psychotic disturbance, mood disturbance, and anxiety; M54.5 Low back pain; E03.9 Hypothyroidism, unspecified; F20.9 Schizophrenia, unspecified; I12.9 Hypertensive chronic kidney disease with stage 1 through stage 4 chronic kidney disease, or unspecified chronic kidney disease; L30.9 Dermatitis, unspecified; G89.4 Chronic pain syndrome; R01.1 Cardiac murmur, unspecified; B96.20 Unspecified Escherichia coli [E. coli] as the cause of diseases classified elsewhere; I35.0 Nonrheumatic aortic (valve) stenosis; R27.0 Ataxia, unspecified; R21 Rash and other nonspecific skin eruption; N18.9 Chronic kidney disease, unspecified; W05.0XXA Fall from non-moving wheelchair, initial encounter; Z79.899 Other long term (current) drug therapy; Z79.82 Long term (current) use of aspirin; Z88.1 Allergy status to other antibiotic agents; Z88.5 Allergy status to narcotic agent; Z88.8 Allergy status to other drugs, medicaments and biological substances; Z95.0 Presence of cardiac pacemaker; Y93.89 Activity, other specified; Z90.5 Acquired absence of kidney; Y92.89 Other specified places as the place of occurrence of the external cause; Y99.8 Other external cause status; Z91.81 History of falling
CPT/HCPCS: 36415; 70450-TC; 71010; 72100-TC; 72125-TC; 80048; 80053; 81000-TC; 82550-TC; 82607; 82746; 82962; 83880; 83921; 84155; 84165; 84439; 84443-TC; 84484; 85025; 85610-TC; 85730-TC; 87040-TC; 87081; 87086; 87186-TC; 87210-TC; 93005; 93306; 93880; 97110-GP; 97530-GP; 99285; J0696; J1335; J3420; J7030; J7040; J7050; J7060; Q0163

== ENCOUNTER 2022-12-01 00:22 | Inpatient (IN) | payer OTHER, BC ==
[~2022-12-01] VITALS: Ht 167.6 cm; Wt 82.1 kg
[~2022-12-01 00:22] MED LIST changes: -ACET-2165 PO; +ACET325T PO; -ASPI-1063 PO; +ASPI-1393 PO; +CYAN100010 PO; -CYAN100067 PO; -LOSA100T11 PO; +LOSA100T4 PO; -MET10 PO; +METH-797 PO
[2022-12-01 00:26] VITALS: BP_SYST 153
[2022-12-01] MEDS ORDERED: NACL 0.9% 1,000 ML IV ONE ×2 (00:30→03:45)
[2022-12-01 00:59] LABS: BASOPHILS % (AUTO) 0.2 % (0.0-2.0); HEMATOCRIT 37.6 % (36-48); HEMOGLOBIN 12.5 g/dL (12.0-16.0); LYMPHOCYTES # (AUTO) 0.4 K/uL (1.0-5.5); LYMPHOCYTES % (AUTO) 3.5 % (20.5-51.5); MEAN CORPUSCULAR HEMOGLOBIN 31 pg (27-31); MEAN CORPUSCULAR HGB CONC 33 % (32-36); MEAN CORPUSCULAR VOLUME 92 fL (79.0-98.0); MONOCYTES # (AUTO) 0.3 K/uL (0.0-1.0); MONOCYTES % (AUTO) 2.2 % (1.7-9.3); NEUTROPHILS # (AUTO) 11.4 K/uL (1.8-7.7); NEUTROPHILS % (AUTO) 94.1 % (40.0-70.0); PLATELET COUNT (AUTO) 176 K/uL (130-430); RED CELL DISTRIBUTION WIDTH 16.9 % (9.0-15.0); WHITE BLOOD COUNT (AUTO) 12.1 K/uL (4.8-10.8)
[2022-12-01 01:35] LABS: CLARITY/URINE CLOUDY (CLEAR); COLOR,URINE YELLOW (YELLOW); GLUCOSE,URINE 1+ (NEGATIVE); PH,URINE 6.5 (5.0-8.0); PROTEIN URINE 2+ (NEGATIVE)
[2022-12-01 01:36] LABS: BILIRUBIN,URINE NEGATIVE (NEGATIVE); BLOOD, URINE 2+ (NEGATIVE); KETONES,URINE NEGATIVE (NEGATIVE); LEUKOCYTE ESTERASE ,URINE 2+ (NEGATIVE); NITRITE, URINE POSITIVE (NEGATIVE); UROBILINOGEN,URINE 0.2 (0.2-1.0)
[2022-12-01 01:38] LABS: BACTERIA,URINE MANY /HPF (None Seen); WBC,URINE >100 /HPF (0-3)
[2022-12-01 01:39] LABS: BARBITURATE, URINE NEGATIVE (NEG <=200); OPIATE, URINE POSITIVE (NEG <=100)
[2022-12-01 01:40] LABS: BENZODIAZEPINE, URINE NEGATIVE (NEG <=150); CANNABINOID, URINE NEGATIVE (NEG <=50); COCAINE, URINE NEGATIVE (NEG <=150); METHAMPHETAMINES SCREEN,URINE NEGATIVE (NEG <=500); PHENCYCLIDINE SCREEN,URINE NEGATIVE (NEG <=25); UR TRICYCLIC ANTIDEPRESSANTS NEGATIVE (NEG <=300); URINE AMPHETAMINE NEGATIVE (NEG <=500); URINE METHADONE NEGATIVE (NEG <=200); URINE OXYCODONE SCREEN NEGATIVE (NEG <=100); URINE PROPOXYPHENE SCREEN NEGATIVE (NEG <=300)
[2022-12-01] MEDS ORDERED: VANCOMYCIN HCL 1000 MG/VIAL IV ONE (01:58)
[2022-12-01] MEDS ORDERED: PIPERACILLIN/TAZOBACTAM 3.375 GM/VIAL (ZOSYN) IV ONE (01:59)
[2022-12-01] MEDS ORDERED: VANCOMYCIN HCL 1,000 MG in NS 250 ML IV ONE (02:00)
[2022-12-01] MEDS ORDERED: PIPERACILLIN/TAZO 3.375 GM in NS 50 ML IV ONE (02:00)
[2022-12-01 02:04] LABS: ALANINE AMINOTRANSFERASE 25 U/L (12-78); ALBUMIN 3.4 g/dL (3.4-4.8); ANION GAP 13 (5-15); ASPARTATE AMINOTRANSFERASE 19 U/L (10-37); CALCIUM 10.4 mg/dL (8.4-11.0); CHLORIDE 94 mmol/L (98-107); CREATININE 1.85 mg/dL (0.55-1.30); FREE T4 (FREE THYROXINE) 1.6 ng/dl (0.8-1.5); GLUCOSE 349 mg/dL (70-99); LIPASE 80 U/L (73-393); THYROID STIMULATING HORMONE 0.02 uIu/mL (0.36-3.74); TOTAL BILIRUBIN 1.2 mg/dL (0.0-1.0); UREA NITROGEN, BLOOD 39 mg/dL (8-21)
[2022-12-01] MEDS ORDERED: MORPHINE 4 MG INJ. 4 MG/ML VIAL IVP PRN (03:15)
[2022-12-01] MEDS ORDERED: ACETAMINOPHEN 500 MG TABLET PO PRN (03:15)
[2022-12-01] MEDS ORDERED: ONDANSETRON HCL 4 MG/2 ML VIAL IVP PRN (03:15)
[2022-12-01] MEDS ORDERED: DOCU-144 PO (03:35)
[2022-12-01] MEDS ORDERED: INSU100V11 SQ (03:35)
[2022-12-01] MEDS ORDERED: NEU300 PO (03:35)
[2022-12-01] MEDS ORDERED: PRO40 PO (03:35)
[2022-12-01] MEDS ORDERED: FURO-149 PO (03:35)
[2022-12-01] MEDS ORDERED: NOR10 PO (03:35)
[2022-12-01] MEDS ORDERED: DOXE10CA2 PO (03:35)
[2022-12-01] MEDS ORDERED: OMEG-158 PO (03:35)
[2022-12-01] MEDS ORDERED: MOM PO (03:35)
[2022-12-01] MEDS ORDERED: MELA5TAB12 PO (03:35)
[2022-12-01] MEDS ORDERED: SSNOVOLOG SUBCUT (03:35)
[2022-12-01] MEDS ORDERED: FOLI-134 PO (03:35)
[2022-12-01] MEDS ORDERED: TRAM50TA2 PO (03:35)
[2022-12-01] MEDS ORDERED: SENN8.6T19 PO (03:35)
[2022-12-01] MEDS: NACL 0.9% 1,000 ML IV SCH ×3 (04:26→21:33)
[2022-12-01 04:28] VITALS: BP_SYST 157
[2022-12-01] MEDS: INSULIN REGULAR, HUMAN 100 UNITS/ML, 3 ML VIAL (humuLIN R) SUBCUT PRN ×3 (06:45→17:01)
[2022-12-01 08:01] VITALS: BP_SYST 149
[2022-12-01] MEDS ORDERED: MEROPENEM 500 MG in NS 50 ML IV SCH (09:00)
[2022-12-01] MEDS: PIPERACILLIN/TAZO 2.25G/DEX-IS 50 ML IV SCH ×3 (11:22→23:12)
[2022-12-01 11:59] VITALS: BP_SYST 142
[2022-12-01 16:32] VITALS: BP_SYST 109
[2022-12-01] MEDS ORDERED: ACETAMINOPHEN 325 MG TABLET PO PRN (19:30)
[2022-12-01] MEDS ORDERED: INSULIN ASPART 100 UNITS/ML, 10 ML VIAL (NovoLOG) SUBCUT PRN (19:30)
[2022-12-01 19:50] VITALS: BP_SYST 156
[2022-12-01] MEDS: DOCUSATE SODIUM 100 MG CAPSULE PO SCH (21:00)
[2022-12-01] MEDS: INSULIN LISPRO SLIDING SCALE 100 UNITS/ML, 3 ML VIAL (humaLOG) SUBCUT PRN (21:39)
[2022-12-01] MEDS: DOXEPIN HCL (SINEquan) 10 MG CAPSULE PO SCH (21:41)
[2022-12-01] MEDS: CARVEDILOL 6.25 MG TABLET (COREG) PO SCH (21:41)
[2022-12-01] MEDS: GABAPENTIN 300 MG CAPSULE PO SCH (21:41)
[2022-12-01] MEDS: SENNOSIDES 8.6 MG TABLET PO SCH (21:41)
[2022-12-02 00:32] VITALS: BP_SYST 128
[2022-12-02] MEDS: PIPERACILLIN/TAZO 2.25G/DEX-IS 50 ML IV SCH ×4 (05:27→23:45)
[2022-12-02] MEDS: LEVOTHYROXINE SODIUM 0.1 MG TABLET PO SCH (06:32)
[2022-12-02] MEDS: INSULIN LISPRO SLIDING SCALE 100 UNITS/ML, 3 ML VIAL (humaLOG) SUBCUT PRN ×3 (06:47→21:20)
[2022-12-02 06:55] LABS: BASOPHILS % (AUTO) 0.7 % (0.0-2.0); EOSINOPHILS # (AUTO) 0.1 K/uL (0.0-0.4); EOSINOPHILS % (AUTO) 0.8 % (0.0-4.0); HEMOGLOBIN 10.5 g/dL (12.0-16.0); LYMPHOCYTES % (AUTO) 14.8 % (20.5-51.5); MEAN CORPUSCULAR HEMOGLOBIN 31 pg (27-31); MEAN CORPUSCULAR HGB CONC 33 % (32-36); MEAN CORPUSCULAR VOLUME 93 fL (79.0-98.0); MONOCYTES # (AUTO) 0.6 K/uL (0.0-1.0); NEUTROPHILS # (AUTO) 5.2 K/uL (1.8-7.7); NEUTROPHILS % (AUTO) 74.7 % (40.0-70.0); PLATELET COUNT (AUTO) 146 K/uL (130-430); RED BLOOD CELL COUNT(AUTO) 3.45 MIL/uL (4.2-6.2)
[2022-12-02] MEDS ORDERED: LEVOTHYROXINE SODIUM 0.1 MG TABLET PO SCH (07:00)
[2022-12-02 07:15] LABS: ANION GAP 10 (5-15); CALCIUM 9.8 mg/dL (8.4-11.0); CHLORIDE 106 mmol/L (98-107); CREATININE 1.42 mg/dL (0.55-1.30); GLUCOSE 169 mg/dL (70-99); UREA NITROGEN, BLOOD 28 mg/dL (8-21)
[2022-12-02 07:43] VITALS: BP_SYST 131
[2022-12-02] MEDS: CARVEDILOL 6.25 MG TABLET (COREG) PO SCH ×2 (08:54→21:15)
[2022-12-02] MEDS: DOCUSATE SODIUM 100 MG CAPSULE PO SCH ×2 (08:54→21:15)
[2022-12-02] MEDS: GABAPENTIN 300 MG CAPSULE PO SCH ×3 (08:55→21:16)
[2022-12-02] MEDS: PANTOPRAZOLE SODIUM 40 MG TAB PO SCH (08:55)
[2022-12-02] MEDS: DULoxetine HCL 30 MG CAPSULE.DR (CYMBALTA) PO SCH (08:55)
[2022-12-02] MEDS ORDERED: MILK OF MAGNESIA 30 ML UDC PO PRN (09:00)
[2022-12-02 11:32] VITALS: BP_SYST 135
[2022-12-02 18:41] VITALS: BP_SYST 120
[2022-12-02 19:00] VITALS: BP_SYST 144
[2022-12-02 20:00] VITALS: BP_SYST 144
[2022-12-02] MEDS: SENNOSIDES 8.6 MG TABLET PO SCH (21:16)
[2022-12-02] MEDS: DOXEPIN HCL (SINEquan) 10 MG CAPSULE PO SCH (21:16)
[2022-12-02] MEDS: NACL 0.9% 1,000 ML IV SCH (22:09)
[2022-12-03 00:45] VITALS: BP_SYST 119
[2022-12-03] MEDS: PIPERACILLIN/TAZO 2.25G/DEX-IS 50 ML IV SCH (06:20)
[2022-12-03] MEDS: LEVOTHYROXINE SODIUM 0.1 MG TABLET PO SCH (06:20)
[2022-12-03] MEDS: INSULIN LISPRO SLIDING SCALE 100 UNITS/ML, 3 ML VIAL (humaLOG) SUBCUT PRN ×4 (06:24→21:21)
[2022-12-03 08:50] VITALS: BP_SYST 105
[2022-12-03] MEDS: DOCUSATE SODIUM 100 MG CAPSULE PO SCH ×2 (10:03→21:15)
[2022-12-03] MEDS: PANTOPRAZOLE SODIUM 40 MG TAB PO SCH (10:03)
[2022-12-03] MEDS: GABAPENTIN 300 MG CAPSULE PO SCH ×3 (10:04→21:14)
[2022-12-03] MEDS: CARVEDILOL 6.25 MG TABLET (COREG) PO SCH ×2 (10:05→21:15)
[2022-12-03] MEDS: DULoxetine HCL 30 MG CAPSULE.DR (CYMBALTA) PO SCH (10:06)
[2022-12-03 11:50] VITALS: BP_SYST 128
[2022-12-03] MEDS ORDERED: MEROPENEM 500 MG in NS 50 ML IV ONE (12:15)
[2022-12-03] MEDS: NACL 0.9% 1,000 ML IV SCH (12:47)
[2022-12-03 16:45] VITALS: BP_SYST 129
[2022-12-03 20:45] VITALS: BP_SYST 142
[2022-12-03] MEDS: DOXEPIN HCL (SINEquan) 10 MG CAPSULE PO SCH (21:15)
[2022-12-03] MEDS: SENNOSIDES 8.6 MG TABLET PO SCH (21:15)
[2022-12-03] MEDS: MEROPENEM 500 MG in NS 50 ML IV SCH (21:17)
[2022-12-04 01:45] VITALS: BP_SYST 106
[2022-12-04] MEDS: NACL 0.9% 1,000 ML IV SCH ×2 (02:45→22:04)
[2022-12-04] MEDS: MEROPENEM 500 MG in NS 50 ML IV SCH ×3 (06:33→22:19)
[2022-12-04] MEDS: LEVOTHYROXINE SODIUM 0.1 MG TABLET PO SCH (06:33)
[2022-12-04] MEDS: INSULIN LISPRO SLIDING SCALE 100 UNITS/ML, 3 ML VIAL (humaLOG) SUBCUT PRN ×4 (06:43→22:29)
[2022-12-04 09:09] VITALS: BP_SYST 133
[2022-12-04] MEDS: DOCUSATE SODIUM 100 MG CAPSULE PO SCH ×2 (10:41→22:04)
[2022-12-04] MEDS: DULoxetine HCL 30 MG CAPSULE.DR (CYMBALTA) PO SCH (10:41)
[2022-12-04] MEDS: PANTOPRAZOLE SODIUM 40 MG TAB PO SCH (10:41)
[2022-12-04] MEDS: CARVEDILOL 6.25 MG TABLET (COREG) PO SCH ×2 (10:42→22:07)
[2022-12-04] MEDS: GABAPENTIN 300 MG CAPSULE PO SCH ×3 (10:42→22:04)
[2022-12-04 20:45] VITALS: BP_SYST 148
[2022-12-04] MEDS ORDERED: TEMAZEPAM 15 MG CAPSULE PO PRN (22:00)
[2022-12-04] MEDS: SENNOSIDES 8.6 MG TABLET PO SCH (22:04)
[2022-12-04] MEDS: DOXEPIN HCL (SINEquan) 10 MG CAPSULE PO SCH (22:06)
[2022-12-05 00:24] VITALS: BP_SYST 154
[2022-12-05] MEDS: MEROPENEM 500 MG in NS 50 ML IV SCH ×2 (05:37→13:03)
[2022-12-05] MEDS: LEVOTHYROXINE SODIUM 0.1 MG TABLET PO SCH (07:00)
[2022-12-05] MEDS: INSULIN LISPRO SLIDING SCALE 100 UNITS/ML, 3 ML VIAL (humaLOG) SUBCUT PRN ×2 (07:09→12:58)
[2022-12-05] MEDS: NACL 0.9% 1,000 ML IV SCH (07:21)
[2022-12-05 08:20] VITALS: BP_SYST 146
[2022-12-05] MEDS: PANTOPRAZOLE SODIUM 40 MG TAB PO SCH (10:27)
[2022-12-05] MEDS: GABAPENTIN 300 MG CAPSULE PO SCH (10:27)
[2022-12-05] MEDS: DOCUSATE SODIUM 100 MG CAPSULE PO SCH (10:28)
[2022-12-05] MEDS: DULoxetine HCL 30 MG CAPSULE.DR (CYMBALTA) PO SCH (10:28)
[2022-12-05] MEDS: CARVEDILOL 6.25 MG TABLET (COREG) PO SCH (10:31)
[2022-12-05 11:21] VITALS: BP_SYST 147
[2022-12-05 12:47] LABS: BASOPHILS # (AUTO) 0.1 K/uL (0.0-0.2); BASOPHILS % (AUTO) 0.6 % (0.0-2.0); EOSINOPHILS # (AUTO) 0.3 K/uL (0.0-0.4); EOSINOPHILS % (AUTO) 2.8 % (0.0-4.0); HEMATOCRIT 33.8 % (36-48); LYMPHOCYTES # (AUTO) 1.3 K/uL (1.0-5.5); LYMPHOCYTES % (AUTO) 14.4 % (20.5-51.5); MEAN CORPUSCULAR HEMOGLOBIN 30 pg (27-31); MEAN CORPUSCULAR HGB CONC 33 % (32-36); MEAN CORPUSCULAR VOLUME 93 fL (79.0-98.0); MONOCYTES # (AUTO) 0.6 K/uL (0.0-1.0); MONOCYTES % (AUTO) 6.3 % (1.7-9.3); NEUTROPHILS % (AUTO) 75.9 % (40.0-70.0); PLATELET COUNT (AUTO) 223 K/uL (130-430); RED BLOOD CELL COUNT(AUTO) 3.64 MIL/uL (4.2-6.2); RED CELL DISTRIBUTION WIDTH 16.9 % (9.0-15.0); WHITE BLOOD COUNT (AUTO) 9.2 K/uL (4.8-10.8)
[2022-12-05 14:46] VITALS: BP_SYST 147
== END 2022-12-05 17:40 | DRG 871 ==
LOC: SED 00:22 → STU 03:03
PROVIDERS: ADMIT Family Medicine; ATTEND Family Medicine
DX: A41.59 Other Gram-negative sepsis (principal); G93.41 Metabolic encephalopathy; J15.0 Pneumonia due to Klebsiella pneumoniae; N39.0 Urinary tract infection, site not specified; F20.9 Schizophrenia, unspecified; E78.5 Hyperlipidemia, unspecified; F32.A Depression, unspecified; G89.4 Chronic pain syndrome; E03.9 Hypothyroidism, unspecified; E66.01 Morbid (severe) obesity due to excess calories; E11.40 Type 2 diabetes mellitus with diabetic neuropathy, unspecified; E11.65 Type 2 diabetes mellitus with hyperglycemia; I12.9 Hypertensive chronic kidney disease with stage 1 through stage 4 chronic kidney disease, or unspecified chronic kidney disease; E11.22 Type 2 diabetes mellitus with diabetic chronic kidney disease; Z20.822 Contact with and (suspected) exposure to COVID-19; N18.9 Chronic kidney disease, unspecified; R56.9 Unspecified convulsions; F03.90 Unspecified dementia, unspecified severity, without behavioral disturbance, psychotic disturbance, mood disturbance, and anxiety; Z86.718 Personal history of other venous thrombosis and embolism; Z79.01 Long term (current) use of anticoagulants; Z88.1 Allergy status to other antibiotic agents; Z88.5 Allergy status to narcotic agent; Z88.8 Allergy status to other drugs, medicaments and biological substances; Z79.899 Other long term (current) drug therapy; Z95.0 Presence of cardiac pacemaker; Z79.1 Long term (current) use of non-steroidal anti-inflammatories (NSAID); Z85.038 Personal history of other malignant neoplasm of large intestine; Z68.29 Body mass index [BMI] 29.0-29.9, adult
CPT/HCPCS: 36415; 36600; 71045; 80048; 80053; 80307; 81000; 82009; 82803; 83605; 83690; 83880; 84439; 84443; 84484; 85025; 87040; 87081; 87086; 92610-GN; 93005; 96365; 96368; 99291; G0378; J1815; J2185; J2270; J2543; J3370; J7030

== ENCOUNTER 2023-05-01 13:13 | Inpatient (IN) | payer OTHER, BC ==
[~2023-05-01] VITALS: Ht 167.6 cm; Wt 80.7 kg
[~2023-05-01 13:13] MED LIST changes: -ASCO500T20 PO; -ASPI-1393 PO; -ATOR10TA68 PO; -CYAN100010 PO; +DOCU-144 PO; -DONE10TA44 PO; +DOXE10CA2 PO; +FOLI-134 PO; +FURO-149 PO; -HAL1 PO; +INSU100V11 SQ; -LACT10SO66 PO; -LOSA100T4 PO; -MEGE400O PO; +MELA5TAB12 PO; -METH-797 PO; +MOM PO; -MULT-300 PO; +NEU300 PO; +NOR10 PO; +OMEG-158 PO; -ONDA4TAB5 PO; -POLY17PO4 PO; +PRO40 PO; +SENN8.6T19 PO; +SSNOVOLOG SUBCUT; +TRAM50TA2 PO
[2023-05-01 13:15] VITALS: PULSE 60; RESP 18; TEMP 98.1; O2SAT 96
[2023-05-01] MEDS ORDERED: NS 1000 ML IV.SOLN IV ONE (13:30)
[2023-05-01 14:28] LABS: BASOPHILS # (AUTO) 0.1 K/uL (0.0-0.2); BASOPHILS % (AUTO) 0.7 % (0.0-2.0); EOSINOPHILS % (AUTO) 0.3 % (0.0-4.0); HEMATOCRIT 37.6 % (36-48); HEMOGLOBIN 12.3 g/dL (12.0-16.0); LYMPHOCYTES % (AUTO) 6.6 % (20.5-51.5); MEAN CORPUSCULAR HEMOGLOBIN 28 pg (27-31); MEAN CORPUSCULAR HGB CONC 33 % (32-36); MEAN CORPUSCULAR VOLUME 85 fL (79.0-98.0); MONOCYTES # (AUTO) 0.7 K/uL (0.0-1.0); MONOCYTES % (AUTO) 4.3 % (1.7-9.3); NEUTROPHILS # (AUTO) 13.6 K/uL (1.8-7.7); PLATELET COUNT (AUTO) 263 K/uL (130-430); RED BLOOD CELL COUNT(AUTO) 4.41 MIL/uL (4.2-6.2); RED CELL DISTRIBUTION WIDTH 16.4 % (9.0-15.0); WHITE BLOOD COUNT (AUTO) 15.4 K/uL (4.8-10.8)
[2023-05-01 14:30] LABS: ANION GAP 13 (5-15); CALCIUM 9.8 mg/dL (8.4-11.0); CARBON DIOXIDE 22 mmol/L (23-29); CHLORIDE 100 mmol/L (98-107); CREATININE 1.78 mg/dL (0.55-1.30); GLUCOSE 241 mg/dL (74-106); POTASSIUM 4.1 mmol/L (3.5-5.1); SODIUM SERUM 135 mmol/L (136-145); UREA NITROGEN, BLOOD 57 mg/dL (8-21)
[2023-05-01 14:38] LABS: ALANINE AMINOTRANSFERASE 16 U/L (12-78); ALBUMIN 3.3 g/dL (3.4-4.8); ASPARTATE AMINOTRANSFERASE 11 U/L (10-37); TOTAL BILIRUBIN 0.7 mg/dL (0.0-1.0); TOTAL PROTEIN, SERUM 8.3 g/dL (6.4-8.3)
[2023-05-01 14:45] LABS: NEUTROPHILS % (AUTO) 88.1 % (40.0-70.0)
[2023-05-01 16:08] LABS: BILIRUBIN,URINE NEGATIVE (NEGATIVE); BLOOD, URINE 3+ (NEGATIVE); COLOR,URINE YELLOW (YELLOW); GLUCOSE,URINE NEGATIVE (NEGATIVE); KETONES,URINE NEGATIVE (NEGATIVE); LEUKOCYTE ESTERASE ,URINE 3+ (NEGATIVE); NITRITE, URINE POSITIVE (NEGATIVE); PH,URINE 5.5 (5.0-8.0); PROTEIN URINE 2+ (NEGATIVE); UROBILINOGEN,URINE 0.2 (0.2-1.0)
[2023-05-01 16:19] LABS: CLARITY/URINE CLOUDY (CLEAR)
[2023-05-01 16:20] LABS: BACTERIA,URINE MANY /HPF (None Seen); MUCUS,URINE None Seen /LPF (None Seen); RBC,URINE 0-3 /HPF (0-3); WBC,URINE >100 /HPF (0-3)
[2023-05-01] MEDS ORDERED: cefTRIAXone 1 GM in D5W 50 ML IV ONE (17:00)
[2023-05-01] MEDS ORDERED: cefTRIAXone 1 GM VIAL ONE (18:58)
[2023-05-01] MEDS ORDERED: D5W 1,000 ML IV PRN (21:45)
[2023-05-01] MEDS ORDERED: DEXTROSE 50% JECT 50 ML DISP.SYRIN IVP PRN (21:45)
[2023-05-01] MEDS ORDERED: GLUCOSE (DEXTROSE) ORAL GEL -Adults PO PRN (21:45)
[2023-05-01] MEDS ORDERED: HYDROmorphone 2 MG TAB PO PRN (22:00)
[2023-05-01] MEDS ORDERED: traMADol HCL HCL 50 MG TABLET (ULTRAM) PO PRN (22:00)
[2023-05-01] MEDS ORDERED: INSULIN ASPART 100 UNITS/ML, 10 ML VIAL (NovoLOG) SUBCUT PRN (22:00)
[2023-05-01] MEDS ORDERED: NALOXONE HCL 0.4 MG/ML AMP (NARCAN) IVP PRN (22:00)
[2023-05-01] MEDS ORDERED: ACETAMINOPHEN 325 MG TABLET PO PRN (22:00)
[2023-05-02 08:30] VITALS: O2SAT 99
[2023-05-02 08:45] VITALS: BP_SYST 128; PULSE 60; RESP 18; TEMP 98.4; O2SAT 98
[2023-05-02] MEDS ORDERED: CARVEDILOL 6.25 MG TABLET (COREG) PO ONE (10:30)
[2023-05-02] MEDS ORDERED: PANTOPRAZOLE SODIUM 40 MG TAB PO ONE (10:30)
[2023-05-02] MEDS ORDERED: DOCUSATE SODIUM 100 MG CAPSULE PO ONE (10:30)
[2023-05-02] MEDS ORDERED: amLODIPine BESYLATE 10 MG TABLET PO ONE (10:30)
[2023-05-02] MEDS ORDERED: MILK OF MAGNESIA 30 ML UDC PO ONE (11:00)
[2023-05-02] MEDS ORDERED: LEVOTHYROXINE SODIUM 0.137 MG TABLET PO ONE (11:00)
[2023-05-02] MEDS ORDERED: DULoxetine HCL 30 MG CAPSULE.DR (CYMBALTA) PO ONE (11:00)
[2023-05-02] MEDS ORDERED: FUROSEMIDE 40 MG TABLET PO ONE (11:00)
[2023-05-02] MEDS: INSULIN REGULAR, HUMAN 100 UNITS/ML, 3 ML VIAL (humuLIN R) SUBCUT PRN ×2 (11:40→17:34)
[2023-05-02] MEDS: CARVEDILOL 6.25 MG TABLET (COREG) PO SCH (11:52)
[2023-05-02] MEDS: FUROSEMIDE 40 MG TABLET PO SCH (11:54)
[2023-05-02] MEDS: DULoxetine HCL 30 MG CAPSULE.DR (CYMBALTA) PO SCH (11:54)
[2023-05-02] MEDS ORDERED: MEROPENEM 500 MG in NS 50 ML IV ONE (12:00)
[2023-05-02] MEDS: FLUCONAZOLE 100 mg/ NS 50 ML IV SCH (13:48)
[2023-05-02 14:41] VITALS: O2SAT 99
[2023-05-02] MEDS: GABAPENTIN 300 MG CAPSULE PO SCH ×2 (15:00→21:13)
[2023-05-02 16:00] VITALS: BP_SYST 109; RESP 18; TEMP 98; O2SAT 99
[2023-05-02 20:00] VITALS: BP_SYST 129; PULSE 60; RESP 18; TEMP 97.9; O2SAT 99
[2023-05-02] MEDS ORDERED: DOXEPIN HCL (SINEquan) 10 MG CAPSULE PO SCH (21:00)
[2023-05-02] MEDS: DOCUSATE SODIUM 100 MG CAPSULE PO SCH (21:14)
[2023-05-02] MEDS: SENNOSIDES 8.6 MG TABLET PO SCH (21:14)
[2023-05-02] MEDS: INSULIN GLARGINE 100 UNITS/ML, 10 ML VIAL SQ SCH (21:20)
[2023-05-03] VITALS: BP_SYST 141; PULSE 60; RESP 16; TEMP 97; O2SAT 98
[2023-05-03] MEDS: INSULIN REGULAR, HUMAN 100 UNITS/ML, 3 ML VIAL (humuLIN R) SUBCUT PRN ×3 (06:29→18:59)
[2023-05-03 08:00] VITALS: BP_SYST 128; PULSE 60; RESP 16; TEMP 98.8; O2SAT 98
[2023-05-03 08:30] LABS: ANION GAP 12 (5-15); CALCIUM 10.8 mg/dL (8.4-11.0); CARBON DIOXIDE 21 mmol/L (23-29); CHLORIDE 103 mmol/L (98-107); CREATININE 1.86 mg/dL (0.55-1.30); GLUCOSE 268 mg/dL (74-106); POTASSIUM 4.3 mmol/L (3.5-5.1); SODIUM SERUM 136 mmol/L (136-145); UREA NITROGEN, BLOOD 46 mg/dL (8-21)
[2023-05-03 08:43] LABS: ALANINE AMINOTRANSFERASE 10 U/L (12-78); ALBUMIN 2.7 g/dL (3.4-4.8); ASPARTATE AMINOTRANSFERASE 11 U/L (10-37); THYROID STIMULATING HORMONE 0.03 uIu/mL (0.34-4.82); TOTAL BILIRUBIN 0.5 mg/dL (0.0-1.0); TOTAL PROTEIN, SERUM 7.5 g/dL (6.4-8.3)
[2023-05-03] MEDS: MILK OF MAGNESIA 30 ML UDC PO SCH (09:37)
[2023-05-03] MEDS: PANTOPRAZOLE SODIUM 40 MG TAB PO SCH (09:37)
[2023-05-03] MEDS: DOCUSATE SODIUM 100 MG CAPSULE PO SCH ×2 (09:37→21:04)
[2023-05-03] MEDS: GABAPENTIN 300 MG CAPSULE PO SCH ×3 (09:37→20:58)
[2023-05-03] MEDS: LEVOTHYROXINE SODIUM 0.137 MG TABLET PO SCH (09:38)
[2023-05-03] MEDS: CARVEDILOL 6.25 MG TABLET (COREG) PO SCH ×2 (09:41→21:03)
[2023-05-03] MEDS: amLODIPine BESYLATE 10 MG TABLET PO SCH (09:42)
[2023-05-03] MEDS: POTASSIUM CHLORIDE 10 MEQ in NACL 0.9% 1,000 ML IV SCH ×2 (09:47→23:16)
[2023-05-03 11:39] LABS: BASOPHILS # (AUTO) 0.1 K/uL (0.0-0.2); BASOPHILS % (AUTO) 0.8 % (0.0-2.0); EOSINOPHILS # (AUTO) 0.1 K/uL (0.0-0.4); EOSINOPHILS % (AUTO) 1.2 % (0.0-4.0); HEMATOCRIT 33.6 % (36-48); HEMOGLOBIN 10.8 g/dL (12.0-16.0); LYMPHOCYTES # (AUTO) 0.9 K/uL (1.0-5.5); LYMPHOCYTES % (AUTO) 9.9 % (20.5-51.5); MEAN CORPUSCULAR HEMOGLOBIN 28 pg (27-31); MEAN CORPUSCULAR HGB CONC 32 % (32-36); MEAN CORPUSCULAR VOLUME 87 fL (79.0-98.0); MONOCYTES # (AUTO) 0.5 K/uL (0.0-1.0); MONOCYTES % (AUTO) 5.7 % (1.7-9.3); NEUTROPHILS # (AUTO) 7.6 K/uL (1.8-7.7); NEUTROPHILS % (AUTO) 82.4 % (40.0-70.0); PLATELET COUNT (AUTO) 209 K/uL (130-430); RED BLOOD CELL COUNT(AUTO) 3.86 MIL/uL (4.2-6.2); WHITE BLOOD COUNT (AUTO) 9.2 K/uL (4.8-10.8)
[2023-05-03 12:00] VITALS: BP_SYST 147; PULSE 61; RESP 16; TEMP 98.2; O2SAT 100
[2023-05-03] MEDS: FLUCONAZOLE 100 mg/ NS 50 ML IV SCH (12:12)
[2023-05-03] MEDS: ERTAPENEM SODIUM 0.5 GM in NS 50 ML IV SCH (14:54)
[2023-05-03 16:00] VITALS: BP_SYST 147; PULSE 73; RESP 18; TEMP 98.4; O2SAT 99
[2023-05-03 20:00] VITALS: BP_SYST 141; PULSE 60; RESP 18; TEMP 97.8; O2SAT 97; O2SAT 98
[2023-05-03] MEDS: SENNOSIDES 8.6 MG TABLET PO SCH (21:03)
[2023-05-03] MEDS: INSULIN GLARGINE 100 UNITS/ML, 10 ML VIAL SQ SCH (21:09)
[2023-05-04 00:28] VITALS: BP_SYST 142; PULSE 60; RESP 17; TEMP 98.8; O2SAT 93
[2023-05-04] MEDS: INSULIN REGULAR, HUMAN 100 UNITS/ML, 3 ML VIAL (humuLIN R) SUBCUT PRN ×2 (06:13→12:09)
[2023-05-04] MEDS: POTASSIUM CHLORIDE 10 MEQ in NACL 0.9% 1,000 ML IV SCH (07:06)
[2023-05-04 07:30] VITALS: O2SAT 99
[2023-05-04 08:00] VITALS: BP_SYST 148; PULSE 60; RESP 18; TEMP 97.6; O2SAT 98
[2023-05-04] MEDS: MILK OF MAGNESIA 30 ML UDC PO SCH (09:18)
[2023-05-04] MEDS: GABAPENTIN 300 MG CAPSULE PO SCH ×2 (09:18→14:40)
[2023-05-04] MEDS: amLODIPine BESYLATE 10 MG TABLET PO SCH (09:21)
[2023-05-04] MEDS: DOCUSATE SODIUM 100 MG CAPSULE PO SCH (09:22)
[2023-05-04] MEDS: DULoxetine HCL 30 MG CAPSULE.DR (CYMBALTA) PO SCH (09:22)
[2023-05-04] MEDS: FUROSEMIDE 40 MG TABLET PO SCH (09:22)
[2023-05-04] MEDS: PANTOPRAZOLE SODIUM 40 MG TAB PO SCH (09:23)
[2023-05-04] MEDS: CARVEDILOL 6.25 MG TABLET (COREG) PO SCH (09:23)
[2023-05-04] MEDS: LEVOTHYROXINE SODIUM 0.137 MG TABLET PO SCH (09:25)
[2023-05-04] MEDS: FLUCONAZOLE 100 mg/ NS 50 ML IV SCH (14:01)
[2023-05-04 14:07] VITALS: BP_SYST 146; PULSE 61; RESP 18; TEMP 97.9; O2SAT 99
[2023-05-04] MEDS: ERTAPENEM SODIUM 0.5 GM in NS 50 ML IV SCH (14:36)
== END 2023-05-04 17:00 | DRG 871 ==
LOC: SED 13:13 → STU 19:01
PROVIDERS: ADMIT Family Medicine; ATTEND Family Medicine
DX: A41.9 Sepsis, unspecified organism (principal); J96.01 Acute respiratory failure with hypoxia; I42.1 Obstructive hypertrophic cardiomyopathy; N39.0 Urinary tract infection, site not specified; I44.2 Atrioventricular block, complete; Z16.12 Extended spectrum beta lactamase (ESBL) resistance; E44.1 Mild protein-calorie malnutrition; E11.22 Type 2 diabetes mellitus with diabetic chronic kidney disease; I12.9 Hypertensive chronic kidney disease with stage 1 through stage 4 chronic kidney disease, or unspecified chronic kidney disease; N18.9 Chronic kidney disease, unspecified; E03.9 Hypothyroidism, unspecified; G30.9 Alzheimer's disease, unspecified; F02.B0 Dementia in other diseases classified elsewhere, moderate, without behavioral disturbance, psychotic disturbance, mood disturbance, and anxiety; B96.1 Klebsiella pneumoniae [K. pneumoniae] as the cause of diseases classified elsewhere; F20.9 Schizophrenia, unspecified; G89.4 Chronic pain syndrome; Z85.038 Personal history of other malignant neoplasm of large intestine; Z95.0 Presence of cardiac pacemaker; Z92.3 Personal history of irradiation; Z74.01 Bed confinement status; Z92.21 Personal history of antineoplastic chemotherapy; Z87.440 Personal history of urinary (tract) infections; Z87.891 Personal history of nicotine dependence; Z93.3 Colostomy status; Z79.4 Long term (current) use of insulin; Z88.1 Allergy status to other antibiotic agents; Z88.5 Allergy status to narcotic agent; Z88.8 Allergy status to other drugs, medicaments and biological substances; Z79.899 Other long term (current) drug therapy; Z68.28 Body mass index [BMI] 28.0-28.9, adult
CPT/HCPCS: 36415; 71045; 80053; 81000; 82962; 83605; 83880; 84443; 84484; 85025; 87040; 87081; 87086; 93005; 93306; 96360; 99285; G0378; J0696; J1335; J1450; J1815; J2185; J3480; J7030

== ENCOUNTER 2023-08-27 22:01 | Inpatient (IN) | payer OTHER ==
[~2023-08-27] VITALS: Ht 167.6 cm; Wt 67.4 kg
[2023-08-27 22:01] VITALS: BP_SYST 142; PULSE 60; RESP 22; TEMP 98.2; O2SAT 97
[~2023-08-27 22:01] MED LIST changes: +ACET325T GT; -ACET325T PO; +CARV6.2554 GT; -CARV6.2554 PO; -CYM30 PO; +DOCU-144 GT; -DOCU-144 PO; +ERTA1VIA3 INJ; +FOLI-134 GT; -FOLI-134 PO; +FURO-149 GT; -FURO-149 PO; +HYDR2TAB34 GT; -HYDR2TAB34 PO; +KETO60CR2 TP; +LEVO100T9 PO; -LEVO137T2 PO; +MOM GT; -MOM PO; +NEU300 GT; -NEU300 PO; +NOR10 GT; -NOR10 PO; +PRO40 GT; -PRO40 PO; +SENN8.6T19 GT; -SENN8.6T19 PO; -SSNOVOLOG SUBCUT; +TRAM50TA2 GT; -TRAM50TA2 PO
[2023-08-27] MEDS ORDERED: MEROPENEM 500 MG VIAL IV ONE (22:31)
[2023-08-27] MEDS: MEROPENEM 1 GM IVPB PREMIX 50 ML IV ONE (23:30)
[2023-08-27 23:49] LABS: BASOPHILS % (AUTO) 0.3 % (0.0-2.0); EOSINOPHILS # (AUTO) 0.1 K/uL (0.0-0.4); HEMATOCRIT 28.1 % (36-48); LYMPHOCYTES # (AUTO) 0.9 K/uL (1.0-5.5); MEAN CORPUSCULAR HEMOGLOBIN 28 pg (27-31); MEAN CORPUSCULAR HGB CONC 32 % (32-36); MEAN CORPUSCULAR VOLUME 88 fL (79.0-98.0); MONOCYTES # (AUTO) 0.6 K/uL (0.0-1.0); MONOCYTES % (AUTO) 5.2 % (1.7-9.3); NEUTROPHILS # (AUTO) 9.4 K/uL (1.8-7.7); NEUTROPHILS % (AUTO) 85.5 % (40.0-70.0); PLATELET COUNT (AUTO) 230 K/uL (130-430); RED BLOOD CELL COUNT(AUTO) 3.19 MIL/uL (4.2-6.2); RED CELL DISTRIBUTION WIDTH 21.6 % (9.0-15.0)
[2023-08-27 23:50] LABS: ANION GAP 15 (5-15); CALCIUM 9.9 mg/dL (8.4-11.0); CARBON DIOXIDE 16 mmol/L (23-29); CHLORIDE 106 mmol/L (98-107); CREATININE 2.25 mg/dL (0.55-1.30); GLUCOSE 247 mg/dL (74-106); POTASSIUM 4.4 mmol/L (3.5-5.1); SODIUM SERUM 137 mmol/L (136-145); UREA NITROGEN, BLOOD 70 mg/dL (8-21)
[2023-08-28 00:05] LABS: ALANINE AMINOTRANSFERASE 21 U/L (12-78); ALBUMIN 2.8 g/dL (3.4-4.8); ASPARTATE AMINOTRANSFERASE 30 U/L (10-37); BILIRUBIN,DIRECT 0.1 mg/dL (0.0-0.3); TOTAL BILIRUBIN 0.4 mg/dL (0.0-1.0); TOTAL PROTEIN, SERUM 7.5 g/dL (6.4-8.3)
[2023-08-28 00:18] LABS: BILIRUBIN,URINE NEGATIVE (NEGATIVE); BLOOD, URINE 3+ (NEGATIVE); CLARITY/URINE CLOUDY (CLEAR); COLOR,URINE YELLOW (YELLOW); GLUCOSE,URINE NEGATIVE (NEGATIVE); KETONES,URINE NEGATIVE (NEGATIVE); LEUKOCYTE ESTERASE ,URINE 3+ (NEGATIVE); NITRITE, URINE POSITIVE (NEGATIVE); PROTEIN URINE 1+ (NEGATIVE); UROBILINOGEN,URINE 0.2 (0.2-1.0)
[2023-08-28 00:24] LABS: BACTERIA,URINE MANY /HPF (None Seen); WBC,URINE >100 /HPF (0-3)
[2023-08-28] MEDS ORDERED: VANCOMYCIN HCL 500 MG/VIAL IV ONE (00:56)
[2023-08-28] MEDS: cefTRIAXone 1 GM IVPB PREMIX 50 ML IV ONE (01:01)
[2023-08-28] MEDS: VANCOMYCIN HCL 1,000 MG in NS 250 ML IV ONE (01:42)
[2023-08-28] MEDS: INSULIN REGULAR, HUMAN 100 UNITS/ML, 3 ML VIAL (humuLIN R) SUBCUT PRN (03:11)
[2023-08-28] MEDS ORDERED: INSULIN REGULAR, HUMAN 10 UNITS/0.1 ML, 3 ML VIAL ONE ×3 (03:12→17:43)
[2023-08-28] MEDS: NACL 0.9% 1,000 ML IV SCH (04:05)
[2023-08-28] MEDS: MEROPENEM 500 MG in NS 50 ML IV SCH (08:55)
[2023-08-28] MEDS ORDERED: traMADol HCL HCL 50 MG TABLET (ULTRAM) PO PRN (09:15)
[2023-08-28] MEDS ORDERED: ACETAMINOPHEN 325 MG TABLET PO PRN (09:15)
[2023-08-28] MEDS ORDERED: NALOXONE HCL 0.4 MG/ML AMP (NARCAN) IVP PRN (09:15)
[2023-08-28] MEDS ORDERED: HYDROmorphone 2 MG TAB PO PRN (09:15)
[2023-08-28] MEDS: LEVOTHYROXINE SODIUM 0.1 MG TABLET PO ONE (10:00)
[2023-08-28 10:57] LABS: INFLUENZA TYPE A NEGATIVE (NEGATIVE); INFLUENZA TYPE B NEGATIVE (NEGATIVE)
[2023-08-28] MEDS: GABAPENTIN 300 MG CAPSULE PO SCH (15:00)
[2023-08-28] MEDS ORDERED: DOXEPIN HCL 3 MG PO SCH (21:00)
[2023-08-28] MEDS: DOXEPIN HCL 3 MG PO SCH (21:00)
[2023-08-28] MEDS: DOCUSATE SODIUM 100 MG CAPSULE PO SCH (21:00)
[2023-08-28] MEDS: SENNOSIDES 8.6 MG TABLET PO SCH (21:00)
[2023-08-28] MEDS: CARVEDILOL 6.25 MG TABLET (COREG) PO SCH (21:00)
[2023-08-28] MEDS ORDERED: KETOCONAZOLE 2%, 60 GM TOPICAL CREAM. (NIZORAL) TP SCH (21:00)
[2023-08-28] MEDS ORDERED: INSULIN GLARGINE 100 UNITS/ML, 10 ML VIAL ONE (22:17)
[2023-08-28] MEDS: INSULIN GLARGINE 100 UNITS/ML, 10 ML VIAL SQ SCH (22:18)
[2023-08-29] VITALS (7 sets, daily range): BP systolic 104–148; PULSE 60; O2SAT 95
[2023-08-29] MEDS ORDERED: INSULIN REGULAR, HUMAN 10 UNITS/0.1 ML, 3 ML VIAL ONE (00:43)
[2023-08-29 05:07] LABS: BASOPHILS # (AUTO) 0.1 K/uL (0.0-0.2); BASOPHILS % (AUTO) 0.4 % (0.0-2.0); EOSINOPHILS # (AUTO) 0.1 K/uL (0.0-0.4); EOSINOPHILS % (AUTO) 0.6 % (0.0-4.0); HEMATOCRIT 29.4 % (36-48); HEMOGLOBIN 9.3 g/dL (12.0-16.0); LYMPHOCYTES # (AUTO) 0.7 K/uL (1.0-5.5); LYMPHOCYTES % (AUTO) 4.5 % (20.5-51.5); MEAN CORPUSCULAR HEMOGLOBIN 28 pg (27-31); MEAN CORPUSCULAR HGB CONC 32 % (32-36); MEAN CORPUSCULAR VOLUME 87 fL (79.0-98.0); MONOCYTES # (AUTO) 0.5 K/uL (0.0-1.0); MONOCYTES % (AUTO) 3.3 % (1.7-9.3); NEUTROPHILS # (AUTO) 13.7 K/uL (1.8-7.7); NEUTROPHILS % (AUTO) 91.2 % (40.0-70.0); PLATELET COUNT (AUTO) 280 K/uL (130-430); RED BLOOD CELL COUNT(AUTO) 3.37 MIL/uL (4.2-6.2); RED CELL DISTRIBUTION WIDTH 20.6 % (9.0-15.0); WHITE BLOOD COUNT (AUTO) 15.1 K/uL (4.8-10.8)
[2023-08-29 05:26] LABS: ANION GAP 18 (5-15); CALCIUM 10.3 mg/dL (8.4-11.0); CARBON DIOXIDE 15 mmol/L (23-29); CHLORIDE 111 mmol/L (98-107); CREATININE 2.14 mg/dL (0.55-1.30); GLUCOSE 183 mg/dL (74-106); POTASSIUM 4.7 mmol/L (3.5-5.1); SODIUM SERUM 144 mmol/L (136-145); UREA NITROGEN, BLOOD 68 mg/dL (8-21)
[2023-08-29] MEDS: LEVOTHYROXINE SODIUM 0.1 MG TABLET PO SCH (07:00)
[2023-08-29] MEDS: MILK OF MAGNESIA 30 ML UDC PO SCH (09:00)
[2023-08-29] MEDS: amLODIPine BESYLATE 10 MG TABLET PO SCH (09:00)
[2023-08-29] MEDS: PANTOPRAZOLE SODIUM 40 MG TAB PO SCH (09:00)
[2023-08-29] MEDS ORDERED: MIDAZOLAM HCL 2 MG/2 ML VIAL (VERSED) ONE (10:59)
[2023-08-29] MEDS: ETOMIDATE 20 MG/ 10 ML VIAL (AMIDATE) IVP ONE (11:00)
[2023-08-29] MEDS ORDERED: NOREPINEPHR 4 MG/250 mL NS 250 ML IV SCH (11:00)
[2023-08-29] MEDS: MIDAZOLAM HCL 2 MG/2 ML VIAL (VERSED) IVP ONE (11:00)
[2023-08-29 11:32] LABS: BLOOD GAS PH 6.949 (7.350-7.450)
[2023-08-29 11:33] LABS: BLOOD GAS HCO3 14.6 mmol/L (21.0-27.0); BLOOD GAS PCO2 68.3 mmHg (35.0-45.0); BLOOD GAS PO2 58.7 mmHg (75.0-100.0)
[2023-08-29 11:34] LABS: ABG O2 SAT% ESTIMATE 71.7 % (94.0-100.0); ALLEN'S TEST POSITIVE (P); BLOOD GAS BASE EXCESS -18.4 mmol/L (-3.0-3.0)
[2023-08-29 12:13] LABS: BLOOD GAS PCO2 30.6 mmHg (35.0-45.0); BLOOD GAS PH 7.214 (7.350-7.450); BLOOD GAS PO2 312.2 mmHg (75.0-100.0)
[2023-08-29 12:14] LABS: ABG O2 SAT% ESTIMATE 99.6 % (94.0-100.0); ALLEN'S TEST POSITIVE (P); BLOOD GAS BASE EXCESS -14.3 mmol/L (-3.0-3.0); BLOOD GAS HCO3 12.1 mmol/L (21.0-27.0)
[2023-08-29] MEDS: NACL 0.9% 1,000 ML IV ONE (12:54)
[2023-08-29] MEDS ORDERED: POLY17PO4 PO (13:34)
[2023-08-29] MEDS ORDERED: HEPARIN SODIUM,PORCINE 2000 UNITS/0.4 ML BOLUS IVP PRN (14:00)
[2023-08-29] MEDS ORDERED: SSNOVOLOG SUBCUT (14:37)
[2023-08-29] MEDS ORDERED: BISA10SU61 RC (14:37)
[2023-08-29] MEDS ORDERED: OMEG10006 GT (14:37)
[2023-08-29] MEDS ORDERED: MELA5TAB21 GT (14:37)
[2023-08-29] MEDS ORDERED: ECON15CR4 TP (14:37)
[2023-08-29] MEDS ORDERED: DOXE3TAB3 GT (14:37)
[2023-08-29] MEDS ORDERED: ACET-2634 GT (14:37)
[2023-08-29] MEDS ORDERED: HEPARIN 25,000 UNITS/D5W 250ML 250 ML IV ONE (14:45)
[2023-08-29 16:03] LABS: INR 1.1 (0.8-1.2); PROTHROMBIN TIME 11.4 SECS (9.5-12.5)
[2023-08-29] MEDS: *HEPARIN PER PHARMACY XX ONE (17:20)
[2023-08-29] MEDS: HEPARIN SODIUM,PORCINE 5,000 UNITS/ML VIAL IVP ONE (17:20)
[2023-08-29] MEDS ORDERED: NOREPINEPHRINE BITARTRATE 4 MG in D5W 246 ML IV PRN (17:45)
[2023-08-29] MEDS: ALTEPLASE 2 MG VIAL MC ONE (18:15)
[2023-08-29] MEDS: SODIUM BICARBONATE 8.4% VIAL 150 MEQ in D5W 1,000 ML IV SCH (18:33)
[2023-08-29] MEDS ORDERED: LORazepam 2 MG/ML VIAL ONE ×2 (20:31→20:34)
[2023-08-29] MEDS: LORazepam 2 MG/ML VIAL IVP ONE (20:39)
[2023-08-29] MEDS ORDERED: PROPOFOL DRIP 100 ML IV ONE (21:24)
[2023-08-29] MEDS: PROPOFOL DRIP 100 ML IV PRN (22:15)
[2023-08-30] VITALS (27 sets, daily range): BP systolic 123–169; PULSE 60–66; RESP 20–21; TEMP 97–97.8; O2SAT 92–100
[2023-08-30 10:14] LABS: BASOPHILS # (AUTO) 0.1 K/uL (0.0-0.2); BASOPHILS % (AUTO) 0.6 % (0.0-2.0); EOSINOPHILS # (AUTO) 0.1 K/uL (0.0-0.4); EOSINOPHILS % (AUTO) 0.8 % (0.0-4.0); HEMATOCRIT 25.9 % (36-48); HEMOGLOBIN 8.5 g/dL (12.0-16.0); LYMPHOCYTES % (AUTO) 8.9 % (20.5-51.5); MEAN CORPUSCULAR HEMOGLOBIN 28 pg (27-31); MEAN CORPUSCULAR HGB CONC 33 % (32-36); MEAN CORPUSCULAR VOLUME 85 fL (79.0-98.0); MONOCYTES # (AUTO) 0.6 K/uL (0.0-1.0); MONOCYTES % (AUTO) 5.2 % (1.7-9.3); NEUTROPHILS # (AUTO) 9.2 K/uL (1.8-7.7); NEUTROPHILS % (AUTO) 84.5 % (40.0-70.0); RED BLOOD CELL COUNT(AUTO) 3.04 MIL/uL (4.2-6.2); RED CELL DISTRIBUTION WIDTH 20.8 % (9.0-15.0)
[2023-08-30 10:16] LABS: ANION GAP 14 (5-15); CALCIUM 9.9 mg/dL (8.4-11.0); CARBON DIOXIDE 19 mmol/L (23-29); CHLORIDE 115 mmol/L (98-107); CREATININE 1.93 mg/dL (0.55-1.30); GLUCOSE 150 mg/dL (74-106); POTASSIUM 3.6 mmol/L (3.5-5.1); SODIUM SERUM 148 mmol/L (136-145); UREA NITROGEN, BLOOD 61 mg/dL (8-21); WHITE BLOOD COUNT (AUTO) 10.8 K/uL (4.8-10.8)
[2023-08-30 10:35] LABS: ALANINE AMINOTRANSFERASE 17 U/L (12-78); ALBUMIN 2.4 g/dL (3.4-4.8); TOTAL BILIRUBIN 0.3 mg/dL (0.0-1.0); TOTAL PROTEIN, SERUM 6.4 g/dL (6.4-8.3)
[2023-08-30 10:45] LABS: ASPARTATE AMINOTRANSFERASE 17 U/L (10-37)
[2023-08-30 10:56] LABS: PLATELET COUNT (AUTO) 239 K/uL (130-430)
[2023-08-30] MEDS: HEPARIN SODIUM,PORCINE 3000 UNITS/0.6 ML BOLUS IVP PRN (15:34)
[2023-08-31] VITALS (35 sets, daily range): BP systolic 139–177; PULSE 60; RESP 10–20; TEMP 97.8–98.2; O2SAT 95–100
[2023-08-31] MEDS: HEPARIN 25,000 UNITS in 250 ML PREMIX IV PRN (02:45)
[2023-08-31 05:18] LABS: BASOPHILS # (AUTO) 0.1 K/uL (0.0-0.2); BASOPHILS % (AUTO) 0.6 % (0.0-2.0); EOSINOPHILS # (AUTO) 0.1 K/uL (0.0-0.4); EOSINOPHILS % (AUTO) 1.5 % (0.0-4.0); HEMATOCRIT 28.2 % (36-48); HEMOGLOBIN 9.4 g/dL (12.0-16.0); MEAN CORPUSCULAR HEMOGLOBIN 28 pg (27-31); MEAN CORPUSCULAR HGB CONC 33 % (32-36); MEAN CORPUSCULAR VOLUME 85 fL (79.0-98.0); MONOCYTES # (AUTO) 0.5 K/uL (0.0-1.0); MONOCYTES % (AUTO) 6.5 % (1.7-9.3); NEUTROPHILS # (AUTO) 6.3 K/uL (1.8-7.7); NEUTROPHILS % (AUTO) 78.4 % (40.0-70.0); PLATELET COUNT (AUTO) 240 K/uL (130-430); RED BLOOD CELL COUNT(AUTO) 3.33 MIL/uL (4.2-6.2)
[2023-08-31 05:33] LABS: ANION GAP 14 (5-15); CALCIUM 9.7 mg/dL (8.4-11.0); CARBON DIOXIDE 22 mmol/L (23-29); CHLORIDE 112 mmol/L (98-107); CREATININE 1.67 mg/dL (0.55-1.30); GLUCOSE 114 mg/dL (74-106); POTASSIUM 3.2 mmol/L (3.5-5.1); SODIUM SERUM 148 mmol/L (136-145); UREA NITROGEN, BLOOD 52 mg/dL (8-21)
[2023-08-31 05:57] LABS: ALANINE AMINOTRANSFERASE 14 U/L (12-78); ALBUMIN 2.6 g/dL (3.4-4.8); ASPARTATE AMINOTRANSFERASE 26 U/L (10-37); TOTAL BILIRUBIN 0.4 mg/dL (0.0-1.0); TOTAL PROTEIN, SERUM 6.6 g/dL (6.4-8.3)
[2023-08-31 12:12] LABS: ABG O2 SAT% ESTIMATE 98.3 % (94.0-100.0); BLOOD GAS BASE EXCESS 0.3 mmol/L (-3.0-3.0); BLOOD GAS HCO3 21.8 mmol/L (21.0-27.0); BLOOD GAS PO2 102.9 mmHg (75.0-100.0)
[2023-08-31] MEDS: PIPERACILLIN/TAZO 2.25G/DEX-IS 50 ML IV SCH (12:18)
[2023-08-31 12:22] LABS: BLOOD GAS PCO2 27.5 mmHg (35.0-45.0); BLOOD GAS PH 7.517 (7.350-7.450)
[2023-08-31 12:23] LABS: ALLEN'S TEST POSITIVE (P)
[2023-08-31] MEDS: KCL 20 mEq in 100 mL (PREMIX) 100 ML IV ONE (14:08)
[2023-08-31] MEDS: HEPARIN SODIUM,PORCINE 5,000 UNITS/ML VIAL SUBCUT SCH (14:10)
[2023-08-31] MEDS: LABETALOL 100 MG/ 20ML VIAL IVP PRN (14:28)
[2023-08-31] MEDS ORDERED: NOREPINEPHR 4 MG/250 mL NS 250 ML IV PRN (18:23)
[2023-09-01] VITALS (33 sets, daily range): BP systolic 151–182; PULSE 60; RESP 9–22; TEMP 97–97.9; O2SAT 82–100
[2023-09-01 05:07] LABS: BASOPHILS # (AUTO) 0.1 K/uL (0.0-0.2); BASOPHILS % (AUTO) 0.6 % (0.0-2.0); EOSINOPHILS # (AUTO) 0.3 K/uL (0.0-0.4); EOSINOPHILS % (AUTO) 3.3 % (0.0-4.0); HEMOGLOBIN 9.6 g/dL (12.0-16.0); LYMPHOCYTES # (AUTO) 1.1 K/uL (1.0-5.5); LYMPHOCYTES % (AUTO) 11.2 % (20.5-51.5); MEAN CORPUSCULAR HEMOGLOBIN 28 pg (27-31); MEAN CORPUSCULAR HGB CONC 33 % (32-36); MEAN CORPUSCULAR VOLUME 86 fL (79.0-98.0); MONOCYTES # (AUTO) 0.6 K/uL (0.0-1.0); MONOCYTES % (AUTO) 6.2 % (1.7-9.3); NEUTROPHILS % (AUTO) 78.7 % (40.0-70.0); PLATELET COUNT (AUTO) 259 K/uL (130-430); RED BLOOD CELL COUNT(AUTO) 3.39 MIL/uL (4.2-6.2); RED CELL DISTRIBUTION WIDTH 21.3 % (9.0-15.0); WHITE BLOOD COUNT (AUTO) 10.2 K/uL (4.8-10.8)
[2023-09-01 05:27] LABS: ALANINE AMINOTRANSFERASE 17 U/L (12-78); ALBUMIN 2.7 g/dL (3.4-4.8); ANION GAP 13 (5-15); ASPARTATE AMINOTRANSFERASE 24 U/L (10-37); CALCIUM 9.7 mg/dL (8.4-11.0); CARBON DIOXIDE 27 mmol/L (23-29); CHLORIDE 109 mmol/L (98-107); CREATININE 1.76 mg/dL (0.55-1.30); GLUCOSE 152 mg/dL (74-106); POTASSIUM 3.6 mmol/L (3.5-5.1); SODIUM SERUM 149 mmol/L (136-145); TOTAL BILIRUBIN 0.6 mg/dL (0.0-1.0); TOTAL PROTEIN, SERUM 6.8 g/dL (6.4-8.3); UREA NITROGEN, BLOOD 40 mg/dL (8-21)
[2023-09-01] MEDS: amLODIPine BESYLATE 10 MG TABLET PO ONE (14:57)
[2023-09-01] MEDS: FUROSEMIDE 40 MG/4 ML VIAL IVP ONE (15:00)
[2023-09-02] VITALS (36 sets, daily range): BP systolic 115–189; PULSE 60–93; RESP 9–25; TEMP 97.5–98.8; O2SAT 96–100
[2023-09-02 06:35] LABS: BASOPHILS % (AUTO) 0.1 % (0.0-2.0); EOSINOPHILS # (AUTO) 0.1 K/uL (0.0-0.4); EOSINOPHILS % (AUTO) 0.8 % (0.0-4.0); HEMATOCRIT 30.7 % (36-48); HEMOGLOBIN 10.1 g/dL (12.0-16.0); LYMPHOCYTES # (AUTO) 0.9 K/uL (1.0-5.5); MEAN CORPUSCULAR HEMOGLOBIN 28 pg (27-31); MEAN CORPUSCULAR HGB CONC 33 % (32-36); MEAN CORPUSCULAR VOLUME 86 fL (79.0-98.0); MONOCYTES # (AUTO) 0.5 K/uL (0.0-1.0); MONOCYTES % (AUTO) 5.1 % (1.7-9.3); NEUTROPHILS # (AUTO) 8.5 K/uL (1.8-7.7); PLATELET COUNT (AUTO) 247 K/uL (130-430); RED BLOOD CELL COUNT(AUTO) 3.56 MIL/uL (4.2-6.2); RED CELL DISTRIBUTION WIDTH 20.3 % (9.0-15.0)
[2023-09-02 07:04] LABS: ALANINE AMINOTRANSFERASE 15 U/L (12-78); ALBUMIN 2.9 g/dL (3.4-4.8); ANION GAP 12 (5-15); ASPARTATE AMINOTRANSFERASE 25 U/L (10-37); CALCIUM 9.8 mg/dL (8.4-11.0); CARBON DIOXIDE 29 mmol/L (23-29); CHLORIDE 105 mmol/L (98-107); CREATININE 1.86 mg/dL (0.55-1.30); GLUCOSE 136 mg/dL (74-106); POTASSIUM 3.2 mmol/L (3.5-5.1); SODIUM SERUM 146 mmol/L (136-145); TOTAL BILIRUBIN 0.8 mg/dL (0.0-1.0); TOTAL PROTEIN, SERUM 7.2 g/dL (6.4-8.3); UREA NITROGEN, BLOOD 31 mg/dL (8-21)
[2023-09-02 08:50] LABS: ABG O2 SAT% ESTIMATE 98.8 % (94.0-100.0); BLOOD GAS BASE EXCESS 4.1 mmol/L (-3.0-3.0); BLOOD GAS HCO3 25.8 mmol/L (21.0-27.0); BLOOD GAS PCO2 30.5 mmHg (35.0-45.0); BLOOD GAS PO2 119.8 mmHg (75.0-100.0)
[2023-09-02 08:58] LABS: BLOOD GAS PH 7.545 (7.350-7.450)
[2023-09-02 08:59] LABS: ALLEN'S TEST POSITIVE (P)
[2023-09-02] MEDS: amLODIPine BESYLATE 10 MG TABLET PO SCH (10:32)
[2023-09-02] MEDS: POTASSIUM CHLORIDE 20 MEQ/PKT PACKET PO ONE (10:41)
[2023-09-02] MEDS: PANTOPRAZOLE SODIUM 40 MG/VIAL (PROTONIX) IVP ONE (11:50)
[2023-09-03] VITALS (34 sets, daily range): BP systolic 114–172; PULSE 60–61; RESP 11–22; TEMP 97.1–98.8; O2SAT 97–100
[2023-09-03 06:19] LABS: BASOPHILS # (AUTO) 0.1 K/uL (0.0-0.2); BASOPHILS % (AUTO) 0.6 % (0.0-2.0); EOSINOPHILS # (AUTO) 0.2 K/uL (0.0-0.4); EOSINOPHILS % (AUTO) 2.8 % (0.0-4.0); HEMATOCRIT 30.6 % (36-48); LYMPHOCYTES # (AUTO) 1.1 K/uL (1.0-5.5); LYMPHOCYTES % (AUTO) 13.2 % (20.5-51.5); MEAN CORPUSCULAR HEMOGLOBIN 29 pg (27-31); MEAN CORPUSCULAR HGB CONC 33 % (32-36); MEAN CORPUSCULAR VOLUME 87 fL (79.0-98.0); MONOCYTES # (AUTO) 0.5 K/uL (0.0-1.0); MONOCYTES % (AUTO) 6.3 % (1.7-9.3); NEUTROPHILS # (AUTO) 6.5 K/uL (1.8-7.7); NEUTROPHILS % (AUTO) 77.1 % (40.0-70.0); PLATELET COUNT (AUTO) 253 K/uL (130-430); RED BLOOD CELL COUNT(AUTO) 3.51 MIL/uL (4.2-6.2); RED CELL DISTRIBUTION WIDTH 20.6 % (9.0-15.0); WHITE BLOOD COUNT (AUTO) 8.5 K/uL (4.8-10.8)
[2023-09-03 06:46] LABS: ALANINE AMINOTRANSFERASE 13 U/L (12-78); ALBUMIN 2.8 g/dL (3.4-4.8); ANION GAP 12 (5-15); ASPARTATE AMINOTRANSFERASE 22 U/L (10-37); CALCIUM 10.4 mg/dL (8.4-11.0); CARBON DIOXIDE 27 mmol/L (23-29); CHLORIDE 107 mmol/L (98-107); CREATININE 1.94 mg/dL (0.55-1.30); GLUCOSE 161 mg/dL (74-106); POTASSIUM 3.7 mmol/L (3.5-5.1); SODIUM SERUM 146 mmol/L (136-145); TOTAL BILIRUBIN 0.6 mg/dL (0.0-1.0); TOTAL PROTEIN, SERUM 7.1 g/dL (6.4-8.3); UREA NITROGEN, BLOOD 29 mg/dL (8-21)
[2023-09-03] MEDS: PANTOPRAZOLE SODIUM 40 MG/VIAL (PROTONIX) IVP SCH (09:30)
[2023-09-03] MEDS: FUROSEMIDE 20 MG/2 ML VIAL IVP SCH (09:30)
[2023-09-04] VITALS (34 sets, daily range): BP systolic 126–171; PULSE 60; RESP 8–31; TEMP 97–98.3; O2SAT 90–100
[2023-09-04] MEDS: ALTEPLASE 2 MG VIAL MC ONE ×2 (01:15→13:01)
[2023-09-04 04:43] LABS: BASOPHILS % (AUTO) 0.3 % (0.0-2.0); EOSINOPHILS # (AUTO) 0.2 K/uL (0.0-0.4); HEMATOCRIT 31.7 % (36-48); HEMOGLOBIN 10.2 g/dL (12.0-16.0); LYMPHOCYTES # (AUTO) 1.1 K/uL (1.0-5.5); LYMPHOCYTES % (AUTO) 12.6 % (20.5-51.5); MEAN CORPUSCULAR HEMOGLOBIN 29 pg (27-31); MEAN CORPUSCULAR HGB CONC 32 % (32-36); MEAN CORPUSCULAR VOLUME 88 fL (79.0-98.0); MONOCYTES # (AUTO) 0.6 K/uL (0.0-1.0); MONOCYTES % (AUTO) 6.4 % (1.7-9.3); NEUTROPHILS # (AUTO) 6.8 K/uL (1.8-7.7); NEUTROPHILS % (AUTO) 78.7 % (40.0-70.0); PLATELET COUNT (AUTO) 208 K/uL (130-430); RED BLOOD CELL COUNT(AUTO) 3.59 MIL/uL (4.2-6.2); RED CELL DISTRIBUTION WIDTH 20.8 % (9.0-15.0); WHITE BLOOD COUNT (AUTO) 8.7 K/uL (4.8-10.8)
[2023-09-04 04:57] LABS: ALANINE AMINOTRANSFERASE 11 U/L (12-78); ALBUMIN 2.9 g/dL (3.4-4.8); ANION GAP 12 (5-15); ASPARTATE AMINOTRANSFERASE 20 U/L (10-37); CALCIUM 9.7 mg/dL (8.4-11.0); CARBON DIOXIDE 27 mmol/L (23-29); CHLORIDE 108 mmol/L (98-107); CREATININE 2.02 mg/dL (0.55-1.30); GLUCOSE 164 mg/dL (74-106); POTASSIUM 3.8 mmol/L (3.5-5.1); SODIUM SERUM 147 mmol/L (136-145); TOTAL BILIRUBIN 0.7 mg/dL (0.0-1.0); TOTAL PROTEIN, SERUM 7.3 g/dL (6.4-8.3); UREA NITROGEN, BLOOD 26 mg/dL (8-21)
[2023-09-04 11:23] LABS: ABG O2 SAT% ESTIMATE 98.8 % (94.0-100.0); BLOOD GAS BASE EXCESS 0.5 mmol/L (-3.0-3.0); BLOOD GAS HCO3 22.9 mmol/L (21.0-27.0); BLOOD GAS PCO2 31.2 mmHg (35.0-45.0); BLOOD GAS PH 7.484 (7.350-7.450); BLOOD GAS PO2 127.5 mmHg (75.0-100.0)
[2023-09-04 11:28] LABS: ALLEN'S TEST POSITIVE (P)
[2023-09-04] MEDS: FUROSEMIDE 20 MG/2 ML VIAL IVP ONE (11:55)
[2023-09-04] MEDS: FUROSEMIDE 20 MG/2 ML VIAL IVP SCH (21:44)
[2023-09-05] VITALS (37 sets, daily range): BP systolic 116–156; PULSE 60; RESP 12–29; TEMP 96.7–98.1; O2SAT 96–100
[2023-09-05 05:53] LABS: BASOPHILS % (AUTO) 0.4 % (0.0-2.0); EOSINOPHILS # (AUTO) 0.2 K/uL (0.0-0.4); EOSINOPHILS % (AUTO) 2.3 % (0.0-4.0); HEMATOCRIT 33.8 % (36-48); HEMOGLOBIN 10.7 g/dL (12.0-16.0); LYMPHOCYTES # (AUTO) 1.5 K/uL (1.0-5.5); LYMPHOCYTES % (AUTO) 14.5 % (20.5-51.5); MEAN CORPUSCULAR HEMOGLOBIN 28 pg (27-31); MEAN CORPUSCULAR HGB CONC 32 % (32-36); MEAN CORPUSCULAR VOLUME 90 fL (79.0-98.0); MONOCYTES # (AUTO) 0.8 K/uL (0.0-1.0); MONOCYTES % (AUTO) 8.1 % (1.7-9.3); NEUTROPHILS # (AUTO) 7.8 K/uL (1.8-7.7); NEUTROPHILS % (AUTO) 74.7 % (40.0-70.0); PLATELET COUNT (AUTO) 225 K/uL (130-430); RED BLOOD CELL COUNT(AUTO) 3.77 MIL/uL (4.2-6.2); RED CELL DISTRIBUTION WIDTH 20.8 % (9.0-15.0); WHITE BLOOD COUNT (AUTO) 10.4 K/uL (4.8-10.8)
[2023-09-05 06:04] LABS: ANION GAP 15 (5-15); CALCIUM 10.7 mg/dL (8.4-11.0); CARBON DIOXIDE 26 mmol/L (23-29); CHLORIDE 104 mmol/L (98-107); CREATININE 2.26 mg/dL (0.55-1.30); GLUCOSE 154 mg/dL (74-106); POTASSIUM 3.6 mmol/L (3.5-5.1); SODIUM SERUM 145 mmol/L (136-145); UREA NITROGEN, BLOOD 35 mg/dL (8-21)
[2023-09-05 06:25] LABS: ALANINE AMINOTRANSFERASE 15 U/L (12-78); ALBUMIN 3.1 g/dL (3.4-4.8); ASPARTATE AMINOTRANSFERASE 22 U/L (10-37); TOTAL BILIRUBIN 0.9 mg/dL (0.0-1.0); TOTAL PROTEIN, SERUM 7.5 g/dL (6.4-8.3)
[2023-09-05 10:03] LABS: BLOOD GAS BASE EXCESS -1.1 mmol/L (-3.0-3.0); BLOOD GAS HCO3 21.1 mmol/L (21.0-27.0); BLOOD GAS PO2 138.4 mmHg (75.0-100.0)
[2023-09-05 10:16] LABS: ALLEN'S TEST POSITIVE (P)
[2023-09-05] MEDS: CEFEPIME 2 GM in D5W 100 ML IV ONE (13:28)
[2023-09-06] VITALS (36 sets, daily range): BP systolic 91–147; PULSE 60–64; RESP 20–27; TEMP 97.6–98.1; O2SAT 99–100
[2023-09-06 05:12] LABS: BASOPHILS % (AUTO) 0.4 % (0.0-2.0); EOSINOPHILS # (AUTO) 0.2 K/uL (0.0-0.4); HEMATOCRIT 34.1 % (36-48); HEMOGLOBIN 10.8 g/dL (12.0-16.0); LYMPHOCYTES # (AUTO) 1.5 K/uL (1.0-5.5); LYMPHOCYTES % (AUTO) 12.7 % (20.5-51.5); MEAN CORPUSCULAR HEMOGLOBIN 28 pg (27-31); MEAN CORPUSCULAR HGB CONC 32 % (32-36); MEAN CORPUSCULAR VOLUME 88 fL (79.0-98.0); MONOCYTES # (AUTO) 0.6 K/uL (0.0-1.0); NEUTROPHILS # (AUTO) 9.4 K/uL (1.8-7.7); NEUTROPHILS % (AUTO) 79.9 % (40.0-70.0); PLATELET COUNT (AUTO) 240 K/uL (130-430); RED BLOOD CELL COUNT(AUTO) 3.89 MIL/uL (4.2-6.2); RED CELL DISTRIBUTION WIDTH 20.3 % (9.0-15.0); WHITE BLOOD COUNT (AUTO) 11.8 K/uL (4.8-10.8)
[2023-09-06 05:21] LABS: ALANINE AMINOTRANSFERASE 16 U/L (12-78); ALBUMIN 3.1 g/dL (3.4-4.8); ANION GAP 12 (5-15); ASPARTATE AMINOTRANSFERASE 20 U/L (10-37); CALCIUM 11.2 mg/dL (8.4-11.0); CARBON DIOXIDE 28 mmol/L (23-29); CHLORIDE 104 mmol/L (98-107); CREATININE 2.29 mg/dL (0.55-1.30); GLUCOSE 144 mg/dL (74-106); POTASSIUM 3.9 mmol/L (3.5-5.1); SODIUM SERUM 144 mmol/L (136-145); TOTAL BILIRUBIN 0.6 mg/dL (0.0-1.0); TOTAL PROTEIN, SERUM 7.8 g/dL (6.4-8.3); UREA NITROGEN, BLOOD 47 mg/dL (8-21)
[2023-09-06] MEDS: CEFEPIME 2 GM in D5W 100 ML IV SCH (08:31)
[2023-09-06] MEDS ORDERED: HYDROmorphone 2 MG TAB PO PRN (10:30)
[2023-09-07] VITALS (35 sets, daily range): BP systolic 111–147; PULSE 60–87; RESP 16–28; TEMP 97.8–99.3; O2SAT 98–100
[2023-09-07] MEDS: traMADol HCL HCL 50 MG TABLET (ULTRAM) PO PRN (00:14)
[2023-09-07 04:45] LABS: ALANINE AMINOTRANSFERASE 14 U/L (12-78); ALBUMIN 3.1 g/dL (3.4-4.8); ANION GAP 11 (5-15); ASPARTATE AMINOTRANSFERASE 20 U/L (10-37); CALCIUM 11.2 mg/dL (8.4-11.0); CARBON DIOXIDE 27 mmol/L (23-29); CHLORIDE 102 mmol/L (98-107); CREATININE 2.44 mg/dL (0.55-1.30); GLUCOSE 207 mg/dL (74-106); POTASSIUM 4.3 mmol/L (3.5-5.1); SODIUM SERUM 140 mmol/L (136-145); TOTAL BILIRUBIN 0.7 mg/dL (0.0-1.0); TOTAL PROTEIN, SERUM 7.8 g/dL (6.4-8.3); UREA NITROGEN, BLOOD 69 mg/dL (8-21)
[2023-09-07 04:54] LABS: BASOPHILS % (AUTO) 0.2 % (0.0-2.0); EOSINOPHILS # (AUTO) 0.3 K/uL (0.0-0.4); EOSINOPHILS % (AUTO) 2.3 % (0.0-4.0); HEMATOCRIT 35.3 % (36-48); HEMOGLOBIN 11.1 g/dL (12.0-16.0); LYMPHOCYTES # (AUTO) 1.3 K/uL (1.0-5.5); LYMPHOCYTES % (AUTO) 10.7 % (20.5-51.5); MEAN CORPUSCULAR HEMOGLOBIN 28 pg (27-31); MEAN CORPUSCULAR HGB CONC 32 % (32-36); MEAN CORPUSCULAR VOLUME 89 fL (79.0-98.0); MONOCYTES # (AUTO) 0.7 K/uL (0.0-1.0); NEUTROPHILS # (AUTO) 9.9 K/uL (1.8-7.7); NEUTROPHILS % (AUTO) 80.8 % (40.0-70.0); PLATELET COUNT (AUTO) 212 K/uL (130-430); RED BLOOD CELL COUNT(AUTO) 3.96 MIL/uL (4.2-6.2); RED CELL DISTRIBUTION WIDTH 20.7 % (9.0-15.0); WHITE BLOOD COUNT (AUTO) 12.2 K/uL (4.8-10.8)
[2023-09-08] VITALS (37 sets, daily range): BP systolic 114–151; PULSE 60; RESP 20–33; TEMP 97.2–98.9; O2SAT 96–100
[2023-09-08 05:10] LABS: BASOPHILS % (AUTO) 0.3 % (0.0-2.0); EOSINOPHILS # (AUTO) 0.2 K/uL (0.0-0.4); EOSINOPHILS % (AUTO) 1.7 % (0.0-4.0); HEMATOCRIT 37.9 % (36-48); HEMOGLOBIN 12.4 g/dL (12.0-16.0); LYMPHOCYTES % (AUTO) 9.3 % (20.5-51.5); MEAN CORPUSCULAR HEMOGLOBIN 29 pg (27-31); MEAN CORPUSCULAR HGB CONC 33 % (32-36); MEAN CORPUSCULAR VOLUME 88 fL (79.0-98.0); MONOCYTES # (AUTO) 0.6 K/uL (0.0-1.0); MONOCYTES % (AUTO) 5.2 % (1.7-9.3); NEUTROPHILS # (AUTO) 9.2 K/uL (1.8-7.7); NEUTROPHILS % (AUTO) 83.5 % (40.0-70.0); PLATELET COUNT (AUTO) 222 K/uL (130-430); RED CELL DISTRIBUTION WIDTH 20.2 % (9.0-15.0)
[2023-09-08 06:01] LABS: ALANINE AMINOTRANSFERASE 16 U/L (12-78); ALBUMIN 3.2 g/dL (3.4-4.8); ANION GAP 13 (5-15); ASPARTATE AMINOTRANSFERASE 21 U/L (10-37); CALCIUM 11.8 mg/dL (8.4-11.0); CARBON DIOXIDE 27 mmol/L (23-29); CHLORIDE 102 mmol/L (98-107); CREATININE 2.44 mg/dL (0.55-1.30); GLUCOSE 204 mg/dL (74-106); POTASSIUM 4.7 mmol/L (3.5-5.1); SODIUM SERUM 142 mmol/L (136-145); TOTAL BILIRUBIN 0.6 mg/dL (0.0-1.0); TOTAL PROTEIN, SERUM 8.2 g/dL (6.4-8.3); UREA NITROGEN, BLOOD 77 mg/dL (8-21)
[2023-09-09] VITALS (32 sets, daily range): BP systolic 121–156; PULSE 60; RESP 12–43; TEMP 96–98.2; O2SAT 95–100
[2023-09-09] MEDS: MORPHINE 2 MG/ML INJ. SYRINGE IVP PRN (20:35)
[2023-09-10] VITALS (20 sets, daily range): BP systolic 129–166; PULSE 60; RESP 14–28; TEMP 97.5–98.3; O2SAT 2–100
[2023-09-10 06:23] LABS: BASOPHILS # (AUTO) 0.1 K/uL (0.0-0.2); BASOPHILS % (AUTO) 0.9 % (0.0-2.0); EOSINOPHILS # (AUTO) 0.3 K/uL (0.0-0.4); EOSINOPHILS % (AUTO) 2.9 % (0.0-4.0); HEMOGLOBIN 11.3 g/dL (12.0-16.0); LYMPHOCYTES # (AUTO) 1.4 K/uL (1.0-5.5); LYMPHOCYTES % (AUTO) 14.9 % (20.5-51.5); MEAN CORPUSCULAR HEMOGLOBIN 29 pg (27-31); MEAN CORPUSCULAR HGB CONC 32 % (32-36); MEAN CORPUSCULAR VOLUME 90 fL (79.0-98.0); MONOCYTES # (AUTO) 0.7 K/uL (0.0-1.0); MONOCYTES % (AUTO) 7.3 % (1.7-9.3); NEUTROPHILS # (AUTO) 6.9 K/uL (1.8-7.7); PLATELET COUNT (AUTO) 232 K/uL (130-430); RED CELL DISTRIBUTION WIDTH 20.9 % (9.0-15.0); WHITE BLOOD COUNT (AUTO) 9.4 K/uL (4.8-10.8)
[2023-09-10 06:36] LABS: ALANINE AMINOTRANSFERASE 17 U/L (12-78); ALBUMIN 3.2 g/dL (3.4-4.8); ANION GAP 11 (5-15); ASPARTATE AMINOTRANSFERASE 27 U/L (10-37); CARBON DIOXIDE 26 mmol/L (23-29); CHLORIDE 106 mmol/L (98-107); CREATININE 2.61 mg/dL (0.55-1.30); GLUCOSE 187 mg/dL (74-106); POTASSIUM 4.5 mmol/L (3.5-5.1); SODIUM SERUM 143 mmol/L (136-145); TOTAL BILIRUBIN 0.6 mg/dL (0.0-1.0); TOTAL PROTEIN, SERUM 8.2 g/dL (6.4-8.3); UREA NITROGEN, BLOOD 78 mg/dL (8-21)
[2023-09-10] MEDS ORDERED: INSULIN REGULAR, HUMAN 100 UNITS/ML, 3 ML VIAL (humuLIN R) SUBCUT PRN (18:00)
[2023-09-11] VITALS (7 sets, daily range): BP systolic 124–167; PULSE 60–62; RESP 16–23; TEMP 96.4–98.6; O2SAT 96–100
[2023-09-11 06:29] LABS: BASOPHILS % (AUTO) 0.5 % (0.0-2.0); EOSINOPHILS # (AUTO) 0.2 K/uL (0.0-0.4); EOSINOPHILS % (AUTO) 2.2 % (0.0-4.0); HEMATOCRIT 34.5 % (36-48); HEMOGLOBIN 11.4 g/dL (12.0-16.0); LYMPHOCYTES # (AUTO) 1.2 K/uL (1.0-5.5); LYMPHOCYTES % (AUTO) 12.9 % (20.5-51.5); MEAN CORPUSCULAR HEMOGLOBIN 29 pg (27-31); MEAN CORPUSCULAR HGB CONC 33 % (32-36); MEAN CORPUSCULAR VOLUME 89 fL (79.0-98.0); MONOCYTES # (AUTO) 0.7 K/uL (0.0-1.0); MONOCYTES % (AUTO) 7.6 % (1.7-9.3); NEUTROPHILS # (AUTO) 7.4 K/uL (1.8-7.7); NEUTROPHILS % (AUTO) 76.8 % (40.0-70.0); PLATELET COUNT (AUTO) 223 K/uL (130-430); RED BLOOD CELL COUNT(AUTO) 3.89 MIL/uL (4.2-6.2); RED CELL DISTRIBUTION WIDTH 20.7 % (9.0-15.0); WHITE BLOOD COUNT (AUTO) 9.7 K/uL (4.8-10.8)
[2023-09-11 07:27] LABS: ALANINE AMINOTRANSFERASE 20 U/L (12-78); ALBUMIN 3.3 g/dL (3.4-4.8); ANION GAP 13 (5-15); ASPARTATE AMINOTRANSFERASE 26 U/L (10-37); CALCIUM 12.2 mg/dL (8.4-11.0); CARBON DIOXIDE 25 mmol/L (23-29); CHLORIDE 107 mmol/L (98-107); CREATININE 2.71 mg/dL (0.55-1.30); GLUCOSE 171 mg/dL (74-106); POTASSIUM 4.8 mmol/L (3.5-5.1); SODIUM SERUM 145 mmol/L (136-145); TOTAL BILIRUBIN 0.6 mg/dL (0.0-1.0); TOTAL PROTEIN, SERUM 8.3 g/dL (6.4-8.3); UREA NITROGEN, BLOOD 78 mg/dL (8-21)
[2023-09-11] MEDS: *TPN PER PHARMACY XX SCH (21:00)
[2023-09-11] MEDS: TPN PERIPHERAL 0.0001 ML, MVI 5 ML, TRACE ELEMENTS 1 ML in PARENTERAL AMINO ACID 8.5 % ... IV SCH (21:26)
[2023-09-12 00:04] VITALS: BP_SYST 142; PULSE 65; RESP 18; TEMP 97.9; O2SAT 98
[2023-09-12 04:32] LABS: BASOPHILS # (AUTO) 0.1 K/uL (0.0-0.2); BASOPHILS % (AUTO) 0.7 % (0.0-2.0); EOSINOPHILS # (AUTO) 0.2 K/uL (0.0-0.4); EOSINOPHILS % (AUTO) 1.6 % (0.0-4.0); HEMATOCRIT 37.1 % (36-48); HEMOGLOBIN 11.9 g/dL (12.0-16.0); LYMPHOCYTES # (AUTO) 1.7 K/uL (1.0-5.5); LYMPHOCYTES % (AUTO) 16.5 % (20.5-51.5); MEAN CORPUSCULAR HEMOGLOBIN 29 pg (27-31); MEAN CORPUSCULAR HGB CONC 32 % (32-36); MEAN CORPUSCULAR VOLUME 91 fL (79.0-98.0); MONOCYTES # (AUTO) 0.9 K/uL (0.0-1.0); MONOCYTES % (AUTO) 8.1 % (1.7-9.3); NEUTROPHILS # (AUTO) 7.7 K/uL (1.8-7.7); NEUTROPHILS % (AUTO) 73.1 % (40.0-70.0); PLATELET COUNT (AUTO) 240 K/uL (130-430); RED BLOOD CELL COUNT(AUTO) 4.09 MIL/uL (4.2-6.2); RED CELL DISTRIBUTION WIDTH 20.7 % (9.0-15.0); WHITE BLOOD COUNT (AUTO) 10.5 K/uL (4.8-10.8)
[2023-09-12 05:04] LABS: ALANINE AMINOTRANSFERASE 18 U/L (12-78); ALBUMIN 3.4 g/dL (3.4-4.8); ANION GAP 12 (5-15); ASPARTATE AMINOTRANSFERASE 24 U/L (10-37); CARBON DIOXIDE 27 mmol/L (23-29); CHLORIDE 108 mmol/L (98-107); CREATININE 2.82 mg/dL (0.55-1.30); GLUCOSE 190 mg/dL (74-106); PHOSPHORUS 4.2 mg/dL (2.7-4.5); POTASSIUM 4.6 mmol/L (3.5-5.1); SODIUM SERUM 147 mmol/L (136-145); TOTAL BILIRUBIN 0.6 mg/dL (0.0-1.0); TOTAL PROTEIN, SERUM 8.6 g/dL (6.4-8.3); TRIGLYCERIDES 292 mg/dL (30-150); UREA NITROGEN, BLOOD 84 mg/dL (8-21)
[2023-09-12 05:26] LABS: CALCIUM 12.5 mg/dL (8.4-11.0)
[2023-09-12 08:00] VITALS: O2SAT 97
[2023-09-12 08:23] VITALS: BP_SYST 148; PULSE 60; RESP 17; TEMP 97.6; O2SAT 97
[2023-09-12 11:30] VITALS: BP_SYST 147; PULSE 60; RESP 17; TEMP 97.9; O2SAT 100
[2023-09-12] MEDS: NACL 0.9% 1,000 ML IV SCH (17:21)
[2023-09-12 17:42] VITALS: BP_SYST 143; PULSE 60; RESP 18; TEMP 97.2; O2SAT 100
[2023-09-12 19:55] VITALS: O2SAT 99
[2023-09-12] MEDS: TPN PERIPHERAL 0.0001 ML, MVI 5 ML, TRACE ELEMENTS 1 ML in PARENTERAL AMINO ACID 8.5 % ... IV SCH (21:58)
[2023-09-13 01:41] VITALS: BP_SYST 141; PULSE 61; RESP 17; TEMP 97.6; O2SAT 98
[2023-09-13 06:55] LABS: BASOPHILS # (AUTO) 0.1 K/uL (0.0-0.2); BASOPHILS % (AUTO) 0.8 % (0.0-2.0); EOSINOPHILS # (AUTO) 0.2 K/uL (0.0-0.4); EOSINOPHILS % (AUTO) 1.8 % (0.0-4.0); HEMOGLOBIN 11.5 g/dL (12.0-16.0); LYMPHOCYTES # (AUTO) 1.7 K/uL (1.0-5.5); LYMPHOCYTES % (AUTO) 17.1 % (20.5-51.5); MEAN CORPUSCULAR HEMOGLOBIN 30 pg (27-31); MEAN CORPUSCULAR HGB CONC 33 % (32-36); MEAN CORPUSCULAR VOLUME 90 fL (79.0-98.0); MONOCYTES # (AUTO) 0.7 K/uL (0.0-1.0); MONOCYTES % (AUTO) 7.2 % (1.7-9.3); NEUTROPHILS # (AUTO) 7.2 K/uL (1.8-7.7); NEUTROPHILS % (AUTO) 73.1 % (40.0-70.0); PLATELET COUNT (AUTO) 229 K/uL (130-430); RED BLOOD CELL COUNT(AUTO) 3.89 MIL/uL (4.2-6.2); RED CELL DISTRIBUTION WIDTH 20.6 % (9.0-15.0); WHITE BLOOD COUNT (AUTO) 9.8 K/uL (4.8-10.8)
[2023-09-13 07:40] LABS: ALANINE AMINOTRANSFERASE 19 U/L (12-78); ALBUMIN 3.2 g/dL (3.4-4.8); ANION GAP 15 (5-15); ASPARTATE AMINOTRANSFERASE 28 U/L (10-37); CALCIUM 11.8 mg/dL (8.4-11.0); CARBON DIOXIDE 21 mmol/L (23-29); CHLORIDE 107 mmol/L (98-107); CREATININE 2.49 mg/dL (0.55-1.30); GLUCOSE 180 mg/dL (74-106); SODIUM SERUM 143 mmol/L (136-145); TOTAL BILIRUBIN 0.5 mg/dL (0.0-1.0); UREA NITROGEN, BLOOD 90 mg/dL (8-21)
[2023-09-13] MEDS: FAT EMULSIONS 250 ML IV SCH (07:55)
[2023-09-13 08:00] VITALS: BP_SYST 145; PULSE 61; RESP 18; TEMP 97.3; O2SAT 99
[2023-09-13 08:05] VITALS: PULSE 62; O2SAT 100
[2023-09-13 11:30] VITALS: BP_SYST 143; PULSE 60; RESP 17; TEMP 97; O2SAT 100
[2023-09-13 17:46] VITALS: BP_SYST 156; PULSE 60; RESP 17; TEMP 97.4; O2SAT 100
[2023-09-13 21:00] VITALS: O2SAT 100
[2023-09-13] MEDS: MVI IV SCH (23:00)
[2023-09-13] MEDS: POTASSIUM ACETATE IV SCH (23:00)
[2023-09-13] MEDS: TPN PERIPHERAL IV SCH (23:00)
[2023-09-13] MEDS: [UNRECOGNIZED DRUG - OTHER] IV SCH (23:00)
[2023-09-13] MEDS: TRACE ELEMENTS IV SCH (23:00)
[2023-09-14] VITALS (7 sets, daily range): BP systolic 138–159; PULSE 60–61; RESP 17–20; TEMP 96–97.9; O2SAT 100
[2023-09-14 06:04] LABS: BASOPHILS % (AUTO) 0.5 % (0.0-2.0); EOSINOPHILS # (AUTO) 0.2 K/uL (0.0-0.4); EOSINOPHILS % (AUTO) 1.9 % (0.0-4.0); HEMATOCRIT 34.5 % (36-48); HEMOGLOBIN 11.5 g/dL (12.0-16.0); LYMPHOCYTES # (AUTO) 1.5 K/uL (1.0-5.5); LYMPHOCYTES % (AUTO) 15.4 % (20.5-51.5); MEAN CORPUSCULAR HEMOGLOBIN 29 pg (27-31); MEAN CORPUSCULAR HGB CONC 33 % (32-36); MEAN CORPUSCULAR VOLUME 88 fL (79.0-98.0); MONOCYTES # (AUTO) 0.6 K/uL (0.0-1.0); MONOCYTES % (AUTO) 6.4 % (1.7-9.3); NEUTROPHILS # (AUTO) 7.4 K/uL (1.8-7.7); NEUTROPHILS % (AUTO) 75.8 % (40.0-70.0); PLATELET COUNT (AUTO) 220 K/uL (130-430); RED CELL DISTRIBUTION WIDTH 20.3 % (9.0-15.0); WHITE BLOOD COUNT (AUTO) 9.7 K/uL (4.8-10.8)
[2023-09-14 06:16] LABS: ALANINE AMINOTRANSFERASE 14 U/L (12-78); ALBUMIN 3.1 g/dL (3.4-4.8); ANION GAP 13 (5-15); ASPARTATE AMINOTRANSFERASE 26 U/L (10-37); CALCIUM 11.5 mg/dL (8.4-11.0); CARBON DIOXIDE 20 mmol/L (23-29); CHLORIDE 108 mmol/L (98-107); GLUCOSE 169 mg/dL (74-106); PHOSPHORUS 2.1 mg/dL (2.7-4.5); POTASSIUM 3.5 mmol/L (3.5-5.1); SODIUM SERUM 141 mmol/L (136-145); TOTAL BILIRUBIN 0.4 mg/dL (0.0-1.0); TOTAL PROTEIN, SERUM 7.7 g/dL (6.4-8.3); UREA NITROGEN, BLOOD 80 mg/dL (8-21)
[2023-09-14] MEDS: fentaNYL CITRATE/PF 100 MCG/2 ML AMP ONE (07:56)
[2023-09-14] MEDS: MIDAZOLAM HCL 5 MG/5 ML VIAL ONE (07:56)
[2023-09-14] MEDS: CEFAZOLIN 1 GM IVPB PREMIX 50 ML IV ONE (09:43)
[2023-09-14] MEDS: TPN PERIPHERAL IV SCH (22:01)
[2023-09-14] MEDS: [UNRECOGNIZED DRUG - OTHER] IV SCH (22:01)
[2023-09-14] MEDS: TRACE ELEMENTS IV SCH (22:01)
[2023-09-14] MEDS: MVI IV SCH (22:01)
[2023-09-14] MEDS: POTASSIUM ACETATE IV SCH (22:01)
[2023-09-15 00:17] VITALS: BP_SYST 154; PULSE 61; RESP 19; TEMP 96.6; O2SAT 100
[2023-09-15 05:52] LABS: BASOPHILS % (AUTO) 0.2 % (0.0-2.0); EOSINOPHILS # (AUTO) 0.1 K/uL (0.0-0.4); EOSINOPHILS % (AUTO) 0.7 % (0.0-4.0); HEMATOCRIT 33.5 % (36-48); HEMOGLOBIN 10.9 g/dL (12.0-16.0); LYMPHOCYTES # (AUTO) 1.1 K/uL (1.0-5.5); LYMPHOCYTES % (AUTO) 7.6 % (20.5-51.5); MEAN CORPUSCULAR HEMOGLOBIN 29 pg (27-31); MEAN CORPUSCULAR HGB CONC 33 % (32-36); MEAN CORPUSCULAR VOLUME 89 fL (79.0-98.0); MONOCYTES # (AUTO) 0.9 K/uL (0.0-1.0); NEUTROPHILS # (AUTO) 12.7 K/uL (1.8-7.7); NEUTROPHILS % (AUTO) 85.5 % (40.0-70.0); PLATELET COUNT (AUTO) 204 K/uL (130-430); RED BLOOD CELL COUNT(AUTO) 3.74 MIL/uL (4.2-6.2); RED CELL DISTRIBUTION WIDTH 20.3 % (9.0-15.0); WHITE BLOOD COUNT (AUTO) 14.8 K/uL (4.8-10.8)
[2023-09-15 06:17] LABS: ALANINE AMINOTRANSFERASE 21 U/L (12-78); ALBUMIN 3.1 g/dL (3.4-4.8); ANION GAP 12 (5-15); ASPARTATE AMINOTRANSFERASE 32 U/L (10-37); CALCIUM 11.1 mg/dL (8.4-11.0); CARBON DIOXIDE 18 mmol/L (23-29); CHLORIDE 106 mmol/L (98-107); CREATININE 2.07 mg/dL (0.55-1.30); GLUCOSE 221 mg/dL (74-106); PHOSPHORUS 3.1 mg/dL (2.7-4.5); POTASSIUM 3.5 mmol/L (3.5-5.1); SODIUM SERUM 136 mmol/L (136-145); TOTAL BILIRUBIN 0.4 mg/dL (0.0-1.0); TOTAL PROTEIN, SERUM 7.1 g/dL (6.4-8.3); UREA NITROGEN, BLOOD 80 mg/dL (8-21)
[2023-09-15 08:00] VITALS: BP_SYST 135; PULSE 60; RESP 22; TEMP 96.6; O2SAT 100; O2SAT 99
[2023-09-15 12:01] VITALS: BP_SYST 118; PULSE 100; RESP 20; TEMP 98.8; O2SAT 97
[2023-09-15] MEDS: FLUCONAZOLE 200 mg/ NS 100 ML IV SCH (15:30)
[2023-09-15 16:23] VITALS: BP_SYST 121; PULSE 60; RESP 16; TEMP 98.8; O2SAT 100
[2023-09-15 16:30] VITALS: BP_SYST 134; PULSE 76; RESP 15; TEMP 96.3; O2SAT 97
[2023-09-15] MEDS ORDERED: TRACE ELEMENTS IV SCH (21:00)
[2023-09-15] MEDS ORDERED: [UNRECOGNIZED DRUG - OTHER] IV SCH (21:00)
[2023-09-15] MEDS ORDERED: POTASSIUM ACETATE IV SCH (21:00)
[2023-09-15] MEDS ORDERED: MVI IV SCH (21:00)
[2023-09-15] MEDS ORDERED: TPN PERIPHERAL IV SCH (21:00)
== END 2023-09-15 19:26 | DRG 870 ==
LOC: SED 22:01 → STU 08-28 01:12 → SIC 08-30 08:52 → STU 09-11 01:43
PROVIDERS: ADMIT Family Medicine; ATTEND Family Medicine
PROC: 5A1955Z Respiratory Ventilation, Greater than 96 Consecutive Hours (ICD-10-PCS; principal; 2023-08-29)
PROC: 0BH17EZ Insertion of Endotracheal Airway into Trachea, Via Natural or Artificial Opening (ICD-10-PCS; 2023-08-29)
PROC: 5A09357 Assistance with Respiratory Ventilation, Less than 24 Consecutive Hours, Continuous Positive Airway Pressure (ICD-10-PCS; 2023-09-05)
PROC: 4A10X4Z Monitoring of Central Nervous Electrical Activity, External Approach (ICD-10-PCS; 2023-09-06)
PROC: 0DH63UZ Insertion of Feeding Device into Stomach, Percutaneous Approach (ICD-10-PCS; 2023-09-14)
PROC: 3E0G76Z Introduction of Nutritional Substance into Upper GI, Via Natural or Artificial Opening (ICD-10-PCS; 2023-09-14)
DX: A41.9 Sepsis, unspecified organism (principal); I63.9 Cerebral infarction, unspecified; J18.9 Pneumonia, unspecified organism; J96.01 Acute respiratory failure with hypoxia; G92.8 Other toxic encephalopathy; I21.4 Non-ST elevation (NSTEMI) myocardial infarction; R65.21 Severe sepsis with septic shock; N17.9 Acute kidney failure, unspecified; E46 Unspecified protein-calorie malnutrition; I13.0 Hypertensive heart and chronic kidney disease with heart failure and stage 1 through stage 4 chronic kidney disease, or unspecified chronic kidney disease; Z16.12 Extended spectrum beta lactamase (ESBL) resistance; N39.0 Urinary tract infection, site not specified; E03.9 Hypothyroidism, unspecified; E11.22 Type 2 diabetes mellitus with diabetic chronic kidney disease; E11.42 Type 2 diabetes mellitus with diabetic polyneuropathy; Z68.24 Body mass index [BMI] 24.0-24.9, adult; F41.9 Anxiety disorder, unspecified; G89.4 Chronic pain syndrome; I50.9 Heart failure, unspecified; R13.12 Dysphagia, oropharyngeal phase; Z20.822 Contact with and (suspected) exposure to COVID-19; G40.909 Epilepsy, unspecified, not intractable, without status epilepticus; N18.9 Chronic kidney disease, unspecified; Z87.440 Personal history of urinary (tract) infections; Z85.038 Personal history of other malignant neoplasm of large intestine; Z74.01 Bed confinement status; Z79.4 Long term (current) use of insulin; Z79.899 Other long term (current) drug therapy; Z87.891 Personal history of nicotine dependence; Z93.3 Colostomy status; Z95.0 Presence of cardiac pacemaker
CPT/HCPCS: 36415; 36600; 43246; 70450-TC; 71045; 76376; 80048; 80053; 80076; 81000; 81001; 81015; 82803; 82948; 83605; 83735; 83880; 84100; 84478; 84484; 85025; 85610; 85730; 87040; 87070; 87081; 87086; 87205; 92610-GN; 93005; 93306; 94002; 94003; 94640; 94760; 95816; 99291; C9113; G0378; J0690; J0692; J0696; J1450; J1644; J1815; J1940; J2060; J2185; J2250; J2270; J2543; J2704; J2997; J3010; J3370; J3465; J3480; J3490; J7060; J7131

== ENCOUNTER 2023-09-18 11:43 | Inpatient (IN) | payer OTHER, MEDICAID ==
[~2023-09-18] VITALS: Ht 167.6 cm; Wt 74.4 kg
[~2023-09-18 11:43] MED LIST changes: +ACET-2634 GT; +BISA10SU61 RC; -DOXE10CA2 PO; +DOXE3TAB3 GT; +ECON15CR4 TP; -ERTA1VIA3 INJ; -KETO60CR2 TP; -MELA5TAB12 PO; +MELA5TAB21 GT; -OMEG-158 PO; +OMEG10006 GT; +POLY17PO4 PO; +SSNOVOLOG SUBCUT
[2023-09-18 11:44] VITALS: BP_SYST 122; PULSE 60; RESP 30; TEMP 99; O2SAT 96
[2023-09-18 12:22] LABS: BASOPHILS # (AUTO) 0.1 K/uL (0.0-0.2); BASOPHILS % (AUTO) 0.4 % (0.0-2.0); EOSINOPHILS # (AUTO) 0.2 K/uL (0.0-0.4); EOSINOPHILS % (AUTO) 1.2 % (0.0-4.0); HEMATOCRIT 31.7 % (36-48); HEMOGLOBIN 10.2 g/dL (12.0-16.0); LYMPHOCYTES # (AUTO) 1.1 K/uL (1.0-5.5); LYMPHOCYTES % (AUTO) 8.6 % (20.5-51.5); MEAN CORPUSCULAR HEMOGLOBIN 29 pg (27-31); MEAN CORPUSCULAR HGB CONC 32 % (32-36); MEAN CORPUSCULAR VOLUME 91 fL (79.0-98.0); MONOCYTES # (AUTO) 0.8 K/uL (0.0-1.0); MONOCYTES % (AUTO) 6.3 % (1.7-9.3); NEUTROPHILS # (AUTO) 10.6 K/uL (1.8-7.7); NEUTROPHILS % (AUTO) 83.5 % (40.0-70.0); PLATELET COUNT (AUTO) 196 K/uL (130-430); RED BLOOD CELL COUNT(AUTO) 3.48 MIL/uL (4.2-6.2); RED CELL DISTRIBUTION WIDTH 21.7 % (9.0-15.0); WHITE BLOOD COUNT (AUTO) 12.7 K/uL (4.8-10.8)
[2023-09-18] MEDS: NS 1000 ML IV.SOLN IV ONE (12:22)
[2023-09-18 12:33] LABS: ANION GAP 10 (5-15); CALCIUM 11.4 mg/dL (8.4-11.0); CARBON DIOXIDE 23 mmol/L (23-29); CHLORIDE 101 mmol/L (98-107); CREATININE 2.51 mg/dL (0.55-1.30); GLUCOSE 291 mg/dL (74-106); POTASSIUM 5.5 mmol/L (3.5-5.1); SODIUM SERUM 134 mmol/L (136-145); UREA NITROGEN, BLOOD 83 mg/dL (8-21)
[2023-09-18 12:51] LABS: ALANINE AMINOTRANSFERASE 11 U/L (12-78); ALBUMIN 2.7 g/dL (3.4-4.8); ASPARTATE AMINOTRANSFERASE 16 U/L (10-37); BILIRUBIN,DIRECT 0.2 mg/dL (0.0-0.3); TOTAL BILIRUBIN 0.4 mg/dL (0.0-1.0); TOTAL PROTEIN, SERUM 7.7 g/dL (6.4-8.3)
[2023-09-18 13:14] LABS: BILIRUBIN,URINE NEGATIVE (NEGATIVE); BLOOD, URINE 2+ (NEGATIVE); CLARITY/URINE CLOUDY (CLEAR); COLOR,URINE YELLOW (YELLOW); GLUCOSE,URINE NEGATIVE (NEGATIVE); KETONES,URINE NEGATIVE (NEGATIVE); LEUKOCYTE ESTERASE ,URINE 3+ (NEGATIVE); NITRITE, URINE NEGATIVE (NEGATIVE); PROTEIN URINE 2+ (NEGATIVE); UROBILINOGEN,URINE 0.2 (0.2-1.0)
[2023-09-18 13:27] LABS: INFLUENZA TYPE A Negative (NEGATIVE); INFLUENZA TYPE B NEGATIVE (NEGATIVE)
[2023-09-18] MEDS ORDERED: ONDANSETRON HCL 4 MG/2 ML VIAL IVP PRN (14:00)
[2023-09-18] MEDS ORDERED: IPRATROPIUM/ALBUTEROL SULFATE 3 ML AMPUL.NEB (DUONEB) INH PRN (14:00)
[2023-09-18 14:02] LABS: BACTERIA,URINE FEW /HPF (None Seen); WBC,URINE 50-80 /HPF (0-3)
[2023-09-18 14:15] VITALS: BP_SYST 130; PULSE 60; O2SAT 94
[2023-09-18] MEDS: NACL 0.9% 1,000 ML IV SCH (14:29)
[2023-09-18] MEDS: PIPERACILLIN/TAZO 3.375/DEX-IS 50 ML IV SCH (14:57)
[2023-09-18 18:14] VITALS: O2SAT 87
[2023-09-18 18:15] VITALS: BP_SYST 135; PULSE 60; RESP 16; TEMP 97.9; O2SAT 95
[2023-09-18] MEDS: IPRATROPIUM/ALBUTEROL SULFATE 3 ML AMPUL.NEB (DUONEB) INH SCH (19:35)
[2023-09-18 19:49] VITALS: O2SAT 96
[2023-09-18 20:00] VITALS: O2SAT 95
[2023-09-18] MEDS ORDERED: ENOXAPARIN SODIUM 80 MG/0.8 ML SYRINGE SUBCUT SCH (23:30)
[2023-09-19] VITALS (15 sets, daily range): BP systolic 118–120; PULSE 60–69; RESP 15–20; TEMP 97.1–97.6; O2SAT 92–100
[2023-09-19 04:27] LABS: BASOPHILS % (AUTO) 0.2 % (0.0-2.0); EOSINOPHILS # (AUTO) 0.1 K/uL (0.0-0.4); EOSINOPHILS % (AUTO) 0.8 % (0.0-4.0); HEMATOCRIT 32.7 % (36-48); HEMOGLOBIN 10.3 g/dL (12.0-16.0); LYMPHOCYTES # (AUTO) 1.3 K/uL (1.0-5.5); LYMPHOCYTES % (AUTO) 10.9 % (20.5-51.5); MEAN CORPUSCULAR HEMOGLOBIN 29 pg (27-31); MEAN CORPUSCULAR HGB CONC 31 % (32-36); MEAN CORPUSCULAR VOLUME 92 fL (79.0-98.0); MONOCYTES # (AUTO) 0.8 K/uL (0.0-1.0); MONOCYTES % (AUTO) 7.1 % (1.7-9.3); NEUTROPHILS # (AUTO) 9.4 K/uL (1.8-7.7); PLATELET COUNT (AUTO) 201 K/uL (130-430); RED BLOOD CELL COUNT(AUTO) 3.57 MIL/uL (4.2-6.2); RED CELL DISTRIBUTION WIDTH 21.9 % (9.0-15.0); WHITE BLOOD COUNT (AUTO) 11.6 K/uL (4.8-10.8)
[2023-09-19 04:37] LABS: ALANINE AMINOTRANSFERASE 15 U/L (12-78); ALBUMIN 2.6 g/dL (3.4-4.8); ANION GAP 10 (5-15); ASPARTATE AMINOTRANSFERASE 19 U/L (10-37); CALCIUM 10.4 mg/dL (8.4-11.0); CARBON DIOXIDE 23 mmol/L (23-29); CHLORIDE 106 mmol/L (98-107); CREATININE 2.27 mg/dL (0.55-1.30); GLUCOSE 268 mg/dL (74-106); POTASSIUM 5.7 mmol/L (3.5-5.1); SODIUM SERUM 139 mmol/L (136-145); TOTAL BILIRUBIN 0.5 mg/dL (0.0-1.0); TOTAL PROTEIN, SERUM 6.9 g/dL (6.4-8.3); UREA NITROGEN, BLOOD 74 mg/dL (8-21)
[2023-09-19 09:38] LABS: BLOOD GAS HCO3 19.2 mmol/L (21.0-27.0); BLOOD GAS PCO2 37.9 mmHg (35.0-45.0); BLOOD GAS PH 7.323 (7.350-7.450); BLOOD GAS PO2 165.8 mmHg (75.0-100.0)
[2023-09-19 09:46] LABS: ALLEN'S TEST POSITIVE (P); BLOOD GAS BASE EXCESS -6.2 mmol/L (-3.0-3.0)
[2023-09-19] MEDS: AZITHROMYCIN 500 MG in NS 250 ML IV SCH (11:25)
[2023-09-19] MEDS: ENOXAPARIN SODIUM 80 MG/0.8 ML SYRINGE SUBCUT ONE (11:26)
[2023-09-19] MEDS ORDERED: POLY17PO44 GT (13:18)
[2023-09-19] MEDS ORDERED: LEVO200T8 GT (13:18)
[2023-09-19] MEDS ORDERED: BISA10SU77 RC (13:18)
[2023-09-19] MEDS ORDERED: *LOVENOX 1MG/KG Q12H/PHARMACY XX PRN (22:30)
[2023-09-20] VITALS (8 sets, daily range): BP systolic 115–146; PULSE 60; RESP 17–20; TEMP 96.9–98.8; O2SAT 89–100
[2023-09-20] MEDS: ENOXAPARIN SODIUM 80 MG/0.8 ML SYRINGE SUBCUT SCH (09:17)
[2023-09-20] MEDS ORDERED: NALOXONE HCL 0.4 MG/ML AMP (NARCAN) IVP PRN (13:15)
[2023-09-20] MEDS: MORPHINE SULFATE IN 0.9 % NACL 100 ML IV PRN (13:59)
== END 2023-09-20 18:43 | DRG 871 ==
LOC: SED 11:43 → STU 13:52
PROVIDERS: ADMIT Family Medicine; ATTEND Family Medicine
PROC: 5A09357 Assistance with Respiratory Ventilation, Less than 24 Consecutive Hours, Continuous Positive Airway Pressure (ICD-10-PCS; principal; 2023-09-19)
PROC: 5A09357 Assistance with Respiratory Ventilation, Less than 24 Consecutive Hours, Continuous Positive Airway Pressure (ICD-10-PCS; 2023-09-20)
DX: A41.9 Sepsis, unspecified organism (principal); G93.41 Metabolic encephalopathy; I21.4 Non-ST elevation (NSTEMI) myocardial infarction; J96.21 Acute and chronic respiratory failure with hypoxia; J15.69 Pneumonia due to other Gram-negative bacteria; N39.0 Urinary tract infection, site not specified; Z20.822 Contact with and (suspected) exposure to COVID-19; N18.9 Chronic kidney disease, unspecified; D63.1 Anemia in chronic kidney disease; R65.20 Severe sepsis without septic shock; E66.01 Morbid (severe) obesity due to excess calories; Z68.26 Body mass index [BMI] 26.0-26.9, adult; Z79.899 Other long term (current) drug therapy; Z51.5 Encounter for palliative care
CPT/HCPCS: 36415; 36600; 71045; 80048; 80053; 80076; 81000; 81001; 81015; 82803; 83605; 84484; 85025; 87040; 87081; 87086; 93005; 94640; 94660; 94760; 96365; 99285; G0378; J0456; J1650; J2270; J2543; J7050